=== PATIENT | male | born 1945 | race Two or more races ===

== ENCOUNTER 2021-12-02 11:59 | Inpatient (IN) | payer OTHER, SELFPAY ==
[2021-12-02] VITALS (11 sets, daily range): BP systolic 132–194; BP diastolic 66–119; PULSE 64–88; RESP 15–19; TEMP 36.6–37.1; O2SAT 92–98; BMI 27.8
--- NOTE | ~2021-12-02 | CT_ITS ---
EXAMINATION: CT CHEST, ABDOMEN AND PELVIS WITH CONTRAST CLINICAL INFORMATION: Reason for Exam evaluate cavity seen on CXR COMPARISON: lumbar spine 12/02/2021 Chest radiograph 12/02/2021 TECHNIQUE: Multidetector volumetric imaging was performed from the thoracic inlet through the pubic symphysis following administration of 85 mL of Omnipaque 300. The scan was performed with the patient on the right side. Sagittal and coronal reformatted images were obtained on the technologist's workstation. This CT examination was performed using dose optimization techniques as appropriate, variously including the following: *Automated exposure control *Adjustment of mA and/or kV according to patient size (this includes techniques or standardized protocols for targeted exams where dose is matched to indication/reason for exam; i.e. extremities or head) *Use of iterative reconstruction technique DLP: 600 mGy-cm FINDINGS: CHEST: Lung: Dependent atelectasis is present in the right lung. A cavitary pleural-based mass is present measuring 2.9 x 2.4 x 3.3 cm (5:33 and 10:64) in the right lower lobe. No other lung masses or cavitary lesions are seen. Mediastinum: The mediastinum is unremarkable. Heart size is normal.. The central vascular structures are unremarkable. No hilar or mediastinal lymphadenopathy. Pericardium/Pleura: No significant effusion. No pleural mass or thickening. Chest Wall/Axilla: Unremarkable ABDOMEN/PELVIS: Peritoneal Space: No significant free air or free fluid identified. Liver, Gallbladder, Biliary Tree: The liver is normal in size, shape, and attenuation. At least 4 scattered water density masses are present in the liver consistent with cysts. No worrisome solid focal hepatic lesion or biliary ductal dilatation is present. The gallbladder is unremarkable with no evidence of radiopaque gallstones, gallbladder wall thickening, or obvious pericholecystic inflammatory changes. Pancreas: Unremarkable Spleen: Unremarkable Adrenal Glands: Unremarkable Kidneys and Ureters: The kidneys are normal in size, shape, and attenuation. No hydronephrosis, hydroureter, or calculi seen. No perinephric stranding. Bladder: Unremarkable Gastrointestinal Tract: Diverticular changes are present in the colon without diverticulitis. The small and large bowel are otherwise unremarkable. The appendix is none seen but there is no evidence of appendicitis.. Abdominal Wall: No significant hernia is appreciated. Lymph Nodes: No retroperitoneal lymphadenopathy. Vascular: Calcific atherosclerotic changes present in the aorta and iliac vessels without aneurysm.. The IVC appears unremarkable. PELVIC VISCERA: There is moderate BPH. Seminal vesicles appear normal OSSEUS STRUCTURES: Again seen is a large destructive lesion involving the sacrum spreading through the SI joint into the right iliac bone as well as into the inferior aspect of the L5 vertebral body.. This was well described on a CT lumbar spine earlier today. CT/CT abdomen pelvis w con IMPRESSION: 1. 3.3 cm cavitary pleural-based right lower lobe cavitary mass. Differential diagnosis would include abscess versus necrotic tumor. 2. Large destructive mass involving the sacrum and right iliac bone and L5 as described in the prior lumbar spine CT report. 3. Other incidental findings described above including colonic diverticulosis and BPH. Fleischner guidelines were followed.
--- NOTE | ~2021-12-02 | XR_ITS ---
EXAMINATION: XR CHEST CLINICAL INFORMATION: Shortness of breath COMPARISON: None TECHNIQUE: PA decubitus view of the chest was obtained. FINDINGS: There is elevation of the right hemidiaphragm. There is hazy density overlying the right lung which may be related to overlying soft tissues with no definite confluent pneumonitis identified. No pleural effusion is seen. Heart normal size. No evidence of pulmonary edema. No pneumothorax. XR/XR chest 1V IMPRESSION: Hazy density overlying the right hemithorax with some elevation of the right hemidiaphragm. This may be related to overlying soft tissue artifact or atelectasis.
--- NOTE | ~2021-12-02 | CT_ITS ---
EXAMINATION: CT OF THE thoracic and lumbar SPINE CLINICAL INFORMATION: Back pain COMPARISON: None. TECHNIQUE: Thin helical images with sagittal and coronal reformats. This CT examination was performed using dose optimization techniques as appropriate, variously including the following: *Automated exposure control *Adjustment of mA and/or kV according to patient size (this includes techniques or standardized protocols for targeted exams where dose is matched to indication/reason for exam; i.e. extremities or head) *Use of iterative reconstruction technique DOSE: DLP 938 and 656 mGy-cm FINDINGS: There is elevation of the right hemidiaphragm. There are significant changes of centrilobular and paraseptal emphysema bilaterally. There is a cavitated pleural-based lung lesion present posteriorly in what appears to be right lower lobe. CT of chest would be of help in further evaluation if clinically indicated. There is dilatation of the descending thoracic aorta just distal to the takeoff of the left subclavian artery where it measures 4.1 cm in diameter. There is a small hiatal hernia. There appears be some perinephric stranding about the left kidney with question mild fullness of the upper collecting system and extrarenal pelvis. No ureteral calculus is seen down through the proximal two thirds of the ureter with the distal ureter not being included on imaging. Thoracic spine: There is mild scoliosis convex right. There is severe degenerative disc see seen with disc space narrowing and marginal sclerosis C6-T1. No suspicious destructive bony lesions are identified. There is mild marginal spurring within the thoracic spine with a few Schmorl's node seen at multiple levels. The disc spaces of the thoracic spine are maintained. Lumbar spine: There is significant degenerative disc disease seen at the L4-L5 and L5-S1 levels with loss of disc space and marginal sclerosis and subchondral cyst formation. There is a destructive mass seen involving the sacrum and the medial aspect of the right ilium. The mass measures approximately 6.[address]/CT thoracic spine wo con IMPRESSION: Large destructive lesion involving the sacrum and medial aspect of the right ilium measuring approximately 6.5 x 10.4 cm in size. Severe changes of centrilobular and paraseptal emphysema within the lungs with cavitated pleural-based right lung lesion. 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 No significant thoracic spine lesion identified. Degenerative disc disease lumbar spine L4-S1 without destructive bony lesion. CT of the chest as well as full CT of the pelvis would help in evaluation of above findings.
--- NOTE | ~2021-12-02 | CT_ITS ---
EXAMINATION: CT HEAD WITHOUT CONTRAST CLINICAL INFORMATION: AMS COMPARISON: None TECHNIQUE: Contiguous axial imaging was performed from the skull base to vertex without intravenous administration of contrast. This CT examination was performed using dose optimization techniques as appropriate, variously including the following: *Automated exposure control *Adjustment of mA and/or kV according to patient size (this includes techniques or standardized protocols for targeted exams where dose is matched to indication/reason for exam; i.e. extremities or head) *Use of iterative reconstruction technique DLP: 881 mGy-cm FINDINGS: There is no evidence of acute intracranial hemorrhage or territorial infarction. No abnormal mass effect or midline shift is seen. Ricardo to white matter differentiation is well preserved. No extra-axial fluid collections are identified. The ventricles are normal in size. There is large amount of periventricular white matter low density seen consistent with microangiopathy. There is a lacunar infarct seen involving the anterior aspect of the left extreme capsule. There appears to be a lacunar infarct involving the anterior limb of the internal capsule on the right. There is a right thalamic lacunar infarct. The osseous structures and soft tissues are normal. The mastoid air cells and visualized portions of the paranasal sinuses are well aerated. CT/CT head/brain wo con IMPRESSION: No acute intracranial pathology. Findings consistent with microangiopathy as described.
--- NOTE | 2021-12-02 12:46 | ED_ITS ---
HPI - General Adult General Chief complaint: Back Pain/Injury Stated complaint: BACK PAIN W/LACK OF SLEEP Time Seen by Provider: 12/02/21 12:11 Source: patient Mode of arrival: EMS Limitations: altered mental status History of Present Illness HPI narrative: 76-year-old male presents from home via EMS for back pain. Patient tells me this pain started 6 years ago, and the pain is in his entire back. Patient states he cannot sleep and has not been able to sleep for 6 years. States he can not close his eyes, he closes his eyes for 2 seconds and then then his eyes open again and he cannot sleep. Patient states he has leukemia, states that he has an appointment with Oncology at the [facility] [place]. States his primary care provider has been managing his leukemia until now, primary care provider is [place]. [place]. Patient denies any recent falls. States he is wheelchair-bound. States he has no visiting nurses or services at home. States he has been short of breath for 6 or 10 years. Denies chest pain, abdominal pain, nausea, vomiting, diarrhea, urinary incontinence, headache, blurry vision, stiff neck, focal weakness, cough, fever Patient is hypertensive, he is not sure if he took his blood pressure medicine today. Patient is alert and oriented to person and place, but not time, he thinks it is May He can answer my questions, but his answers are vague and in his positive review of systems, he continues to say he has had symptoms for 6-10 years Onset (ago): year(s) (6) Location: back Radiation: non-radiation Quality: aching Pain Consistency: constant Associated symptoms: denies other symptoms Treatments prior to arrival: none Related Data Home Medications Medication Instructions Recorded Confirmed acetaminophen 325 mg tablet 650 mg PO DAILY PRN 12/02/21 12/02/21 atenolol 25 mg tablet 25 mg PO DAILY 12/02/21 12/02/21 atorvastatin 80 mg tablet 80 mg PO BEDTIME 12/02/21 12/02/21 Allergies Allergy/AdvReac Type Severity Reaction Status Date / Time No Known Allergies Allergy Verified 12/02/21 12:08 Review of Systems Constitutional: Constitutional: Denies body ache(s), Denies chills, Denies fatigue, Denies fever(s) and Denies headache(s) Eyes: Eyes: Denies blurry vision and Denies change in vision ENT: Denies dizziness, Denies otalgia, Denies headache(s), Denies nasal congestion, Denies neck pain and Denies sore throat Cardiovascular: Cardiovascular: Denies chest pain, Denies syncope, Denies pedal edema, Denies leg edema, Denies lightheadedness, Denies palpitations, Reports dyspnea and Denies dyspnea on exertion Respiratory: Respiratory: Denies chest congestion, Denies cough, Reports dy spnea and Denies dyspnea on exertion Gastrointestinal: Gastrointestinal: Denies abdominal pain, Denies melena, Denies hematochezia, Denies coffee ground emesis, Denies fecal incontinence, Denies diarrhea, Denies nausea and Denies vomiting Genitourinary: Genitourinary: Denies dysuria and Denies urinary incontinence Musculoskeletal: Musculoskeletal: Reports back pain, Reports muscle cramps, Denies muscle weakness, Denies neck pain, Denies numbness and Denies tingling Neurologic: Denies Abnormal speech present, Denies burning sensations, Denies dizziness, Denies syncope, Denies headache(s), Denies numbness, Denies Sensory deficit (Neuro), Denies tingling and Denies paresthesias Endocrine: Endocrine: Denies fatigue and Denies palpitations PMFSH Past Medical History Medical History Gammopathy, monoclonal Hypertension Stroke Social History Social History Advance Directives: No Advance Directives Information Provided: Yes Physical Exam ED Vital Signs: Vital Signs - 24 hr 12/02/21 12:08 12/02/21 12:45 12/02/21 12:48 Temperature 98.8 F Pulse Rate 88 88 84 Respiratory Rate 18 15 Blood Pressure 194/119 H 175/108 H 181/94 H Pulse Oximetry 95 98 12/02/21 13:37 12/02/21 13:39 12/02/21 14:35 Temperature Pulse Rate 64 70 Respiratory Rate 16 18 Blood Pressure 172/105 H 171/95 H 188/103 H Pulse Oximetry 95 96 12/02/21 15:13 12/02/21 16:11 Temperature Pulse Rate 67 79 Respiratory Rate 16 18 Blood Pressure 157/82 H 180/95 H Pulse Oximetry 96 95 BMI result Body Mass Index 27.8 Const General: cooperative, no acute distress, alert and awake Nutritional Appearance: obese Orientation/consciousness: oriented to person and oriented to place HENMT Head: Yes normal to inspection, Yes normocephalic and Yes atraumatic Ears: hearing grossly normal bilaterally, external ears normal, TM's normal bilaterally and EAC's normal General nose exam: Normal external nose present Face and sinus: Yes normal facial exam and Yes sinuses nontender Mouth: Normal oral and palatal mucosa present Throat: Yes posterior oropharynx normal Eyes Conjunctivae: conjunctivae normal Pupils: Equal, round and reactive pupils present EOM: EOMs intact bilaterally Neck Neck: Yes full ROM, Yes no lymphadenopathy and Yes supple Resp Effort & Inspection: normal respiratory effort and able to speak in complete sentences Auscultation: no crackles, no rales, no rhonchi and wheezes throughout Cardio Rate: regular rate Rhythm: regular rhythm Heart sounds: S1 normal heart sound present and S2 normal heart sound present GI Inspection: Yes Abdominal panniculus present and Yes obesity Palpation (GI): Soft to palpation, nontender, no guarding and not rigid Percussion: Yes normal to percussion Auscultation: normal bowel sounds Back/Spine/Pelvis Cervical Spine: normal cervical lordosis, cervical ROM normal, No cervical muscular tenderness, No Cervical spine tenderness, No step off deformity and No cervical ROM abnormal Thoracic/Lumbar Spine: thoraco-lumbar spasm on the right, thoracic spinal tenderness and lumbar spinal tenderness Skin Other: ?feces left foot Neuro General: oriented to person, oriented to place, tone normal, moves all extremities and Unable to assess gait Cranial nerves: Yes CN's II-XII intact bilaterally, Yes Equal, round and reactive pupils present, Yes Normal accommodation reflex present, Yes Bilaterally intact EOM present, Yes Nystagmus not present, Yes Normal facial strength present, Yes Midline tongue present, Yes Ability to bilaterally rotate head present and Yes Ability to bilaterally elevate shoulders present Cognition (Neuro): abnormal cognition (doesn't know his meds, vague) Speech: No Abnormal speech present Gait exam (Neuro): Unable to assess gait Motor exam (neuro): 5/5 motor strength present throughout and Pronator motor function not present Sensory Exam: No Sensory deficit (Neuro) Coordination: [id number] test normal Pupils: Normal pupillary reactivity/response: bilateral Extrem General: Yes normal to inspection and Yes full ROM Psych Appearance: grossly normal Affect: normal affect Attitude: cooperative Thought process: Normal thought process present Course Course Course Narrative: 76-year-old male with reported history of leukemia [facility], and for whom we have no records, presents for back pain and insomnia for the last 6 years. Patient is alert and oriented to person and place, he got the month wrong, he says it is October, he knows that the president is Jessica. No focal neuro deficits, the patient is disheveled, is resting on his side, and will not lie on his back due to pain. Patient has possible feces on left foot. Reevaluation(s) Reevaluation #1: Trying to obtain patient problem list and medication list from [place]. Patient is vague in his answers, when the professor of radiology asked why he is here, he says ?I do not know, pain, maybe I had a stroke? survey technician tells me patient will not lie still for the CT I was awaiting medication history to decide what to treat patient with, but will now give ketorolac and Flexeril so we can get imaging Reevaluation #2: Patient states his pain is little better with medications, will try to get CT and urine So far patient has normal labs, alcohol level is not detectable, EKG shows no acute ischemia Called [place] for more information, and a [facility] worker return my call. They stated patient is on atenolol 25 mg daily, and atorvastatin 80 mg daily. States that patient's problem list includes hypertension, hyperlipidemia, chronic kidney disease stage 3, chronic hematuria, history of stroke in 2019, with right h emiparesis, monoclonal gammopathy. 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 No clear leukemia diagnosis. No history of back pain and patient's chart. PA worker tells me patient does not have any nursing help at home forest technology professor was able to reconstruct thoracic and lumbar spine CT to include kidney, given new information about patient's kidney pathology Patient states his pain is not better with ketorolac and Flexeril, will give morphine. Troponin is elevated at 50.4, most likely due to patient's chronic kidney disease, will repeat troponin in 3 hours. Urine shows hematuria, which is chronic, urine drug screen is negative, alcohol level is nondetectable On re-examine, patient is on his side, refuses to lay on his back. Can move his legs and push against my hands, hard to completely assess leg strength in this position Reevaluation #3: CT head/brainFINDINGS: There is no evidence of acute intracranial hemorrhage or territorial infarction. No abnormal mass effect or midline shift is seen. Ricardo to white matter differentiation is well preserved. No extra-axial fluid collections are identified. The ventricles are normal in size. There is large amount of periventricular white matter low density seen consistent with microangiopathy. There is a lacunar infarct seen involving the anterior aspect of the left extreme capsule. There appears to be a lacunar infarct involving the anterior limb of the internal capsule on the right. There is a right thalamic lacunar infarct. The osseous structures and soft tissues are normal. The mastoid air cells and visualized portions of the paranasal sinuses are well aerated. CT/CT head/brain wo con IMPRESSION: No acute intracranial pathology. Findings consistent with microangiopathy as described. CXR FINDINGS: There is elevation of the right hemidiaphragm. There is hazy density overlying the right lung which may be related to overlying soft tissues with no definite confluent pneumonitis identified. No pleural effusion is seen. Heart normal size. No evidence of pulmonary edema. No pneumothorax. XR/XR chest 1V IMPRESSION: Hazy density overlying the right hemithorax with some elevation of the right hemidiaphragm. This may be related to overlying soft tissue artifact or atelectasis. CT/CT lumbar spine wo con IMPRESSION: Large destructive lesion involving the sacrum and medial aspect of the right ilium measuring approximately 6.5 x 10.4 cm in size.? Severe changes of centrilobular and paraseptal emphysema within the lungs with cavitated pleural-based right lung lesion. 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 No significant thoracic spine lesion identified. Degenerative disc disease lumbar spine L4-S1 without destructive bony lesion CT thoracic spine FINDINGS: There is elevation of the right hemidiaphragm. There are significant changes of centrilobular and paraseptal emphysema bilaterally. There is a cavitated pleural-based lung lesion present posteriorly in what appears to be right lower lobe. CT of chest would be of help in further evaluation if clinically indicated. There is dilatation of the descending thoracic aorta just distal to the takeoff of the left subclavian artery where it measures 4.1 cm in diameter. There is a small hiatal hernia. There appears be some perinephric stranding about the left kidney with question mild fullness of the upper collecting system and extrarenal pelvis. No ureteral calculus is seen down through the proximal two thirds of the ureter with the distal ureter not being included on imaging. Thoracic spine: There is mild scoliosis convex right. There is severe degenerative disc see seen with disc space narrowing and marginal sclerosis C6-T1. No suspicious destructive bony lesions are identified. There is mild marginal spurring within the thoracic spine with a few Schmorl's node seen at multiple levels. The disc spaces of the thoracic spine are maintained. Lumbar spine: There is significant degenerative disc disease seen at the L4-L5 and L5-S1 levels with loss of disc space and marginal sclerosis and subchondral cyst formation. There is a destructive mass seen involving the sacrum and the medial aspect of the right ilium. The mass measures approximately 6.[address]/CT thoracic spine wo con IMPRESSION: Large destructive lesion involving the sacrum and medial aspect of the right ilium measuring approximately 6.5 x 10.4 cm in size. ? Severe changes of centrilobular and paraseptal emphysema within the lungs with cavitated pleural-based right lung lesion. 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 ? No significant thoracic spine lesion identified. ? Degenerative disc disease lumbar spine L4-S1 without destructive bony lesion. CT of the chest as well as full CT of the pelvis would help in evaluation of above findings Discussed with hospitalist to admit patient for intractable pain and sacral mass. Will order CT chest with contrast and CT pelvis with contrast to evaluate lung cavity and sacral mass more fully Repeat troponin was 51.9, no delta change ? Additional Reevaluation(s): Patient's HCP called, her name is Desiree Palscencia. Her phone number is [phone]. She is the patient's niece. She states the patient is with PTSD, and that he is very stubborn and will not admit to the illness that he has. States he sleeps during the day and cannot sleep at night. States he was supposed to have a lung biopsy but he canceled appointments and never got the lung biopsy. States that she recently took him to [facility] for bleeding from his mouth, he was filling up coffee cups with blood, he was told he needed a biopsy of his lung, and refused. Patient continues to smoke cigarettes. She states he lives alone and is very impatient. She states he is a full code. She states she and her mother are his only relatives, and that she wants to be contacted to be included in his care. CT/CT chest w con IMPRESSION: 1.? 3.3 cm cavitary pleural-based right lower lobe cavitary mass. Differential diagnosis would include abscess versus necrotic tumor. 2.? Large destructive mass involving the sacrum and right iliac bone and L5 as described in the prior lumbar spine CT report. 3.? Other incidental findings described above including colonic diverticulosis and BPH. Medical Decision Making Lab Data Result diagrams: 12/02/21 12:53 12/02/21 12:53 Labs: Lab Results 12/02/21 12/02/21 12/02/21 Range/Units 12:42 12:53 12:53 WBC 10.5 (4.8-10.8) X10*3/uL RBC 5.02 (4.60-5.80) X10*6/uL Hgb 14.4 (14.0-18.0) g/dl Hct 44.8 (42.0-52.0) % MCV 89.2 (80.0-98.0) fL MCH 28.7 (27.0-33.0) pg MCHC 32.1 (31.0-36.0) g/dl RDW 14.0 (11.0-16.0) % Plt Count 218 (160-400) X10*3/uL MPV 12.4 (9.4-12.4) fL Immature Gran % (Auto) 0.8 H (0.0-0.4) % Neut % (Auto) 80.2 H (45-73) % Lymph % (Auto) 7.9 L (20-40) % [place] % (Auto) 8.1 (2-11) % Eos % (Auto) 2.4 (0-4) % Baso % (Auto) 0.6 (0-2) % Lymph # (Auto) 0.8 L (1.2-4.9) X10*3/uL [place] # (Auto) 0.9 (0.1-1.2) X10*3/uL Eos # (Auto) 0.3 (0.0-0.4) X10*3/uL Baso # (Auto) 0.1 (0.0-0.2) X10*3/uL Abs Immat Gran (auto) 0.08 H (0.00-0.03) X10*3/uL Absolute Neuts (auto) 8.4 H (2.0-8.3) x10*3/uL Absolute Nucleated RBC 0.000 (0.0-0.012) X10*3/uL Nucleated RBC % (auto) 0.0 (0.0-0.2) /100WBC Sodium 143 (135-145) mmol/L Potassium 3.3 (3.3-5.1) mmol/L Chloride 105 (96-108) mmol/L Carbon Dioxide 28 (22-29) mmol/L Anion Gap 13 (12-20) BUN 10 (9-16) mg/dL Creatinine 1.03 (0.5-1.4) mg/dL Estim Creat Clear Calc 63.0 Estimated GFR > 60 Random Glucose 115 (60-115) mg/dL Lactic Acid (0.5-2.0) mmol/L Calcium 9.6 (8.4-10.2) mg/dL Total Bilirubin 0.8 (0.0-1.0) mg/dL AST 23 (5-37) U/L ALT 28 (0-40) U/L Alkaline Phosphatase 109 (39-117) U/L Troponin I High Sens 50.4 H (<3.5-35.0) ng/L Total Protein 6.1 L (6.5-8.0) g/dL Albumin 3.6 (3.5-5.0) g/dL Urine Color Urine Appearance Urine pH (5.0-8.0) Ur Specific [place] (1.005-1.025) Urine Protein (NEG-TRACE) MG/DL Urine Glucose (UA) (NEG) MG/DL Urine Ketones (NEG) MG/DL Urine Blood (NEG) Urine Nitrite (NEG) Ur Leukocyte Esterase (NEG) Urine RBC (0) /HPF Urine WBC (0-4) /HPF Ur Squamous Epith Cells /LPF Urine Bacteria /LPF Urine Opiates Screen (Not Detect) Urine Fentanyl Screen (Not Detect) Ur Barbiturates Screen (Not Detect) Ur Phencyclidine Scrn (Not Detect) Ur Amphetamines Screen (Not Detect) U Benzodiazepines Scrn (Not Detect) Urine Cocaine Screen (Not Detect) U Marijuana (THC) Screen (Not Detect) Ethyl Alcohol mg/dL COVID-19 (SHENA) (Negative) COVID-19 Clin Com 12/02/21 12/02/21 12/02/21 Range/Units 12:53 12:53 13:51 WBC (4.8-10.8) X10*3/uL RBC (4.60-5.80) X10*6/uL Hgb (14.0-18.0) g/dl Hct (42.0-52.0) % MCV (80.0-98.0) fL MCH (27.0-33.0) pg MCHC (31.0-36.0) g/dl RDW (11.0-16.0) % Plt Count (160-400) X10*3/uL MPV (9.4-12.4) fL Immature Gran % (Auto) (0.0-0.4) % Neut % (Auto) (45-73) % Lymph % (Auto) (20-40) % [place] % (Auto) (2-11) % Eos % (Auto) (0-4) % Baso % (Auto) (0-2) % Lymph # (Auto) (1.2-4.9) X10*3/uL [place] # (Auto) (0.1-1.2) X10*3/uL Eos # (Auto) (0.0-0.4) X10*3/uL Baso # (Auto) (0.0-0.2) X10*3/uL Abs Immat Gran (auto) (0.00-0.03) X10*3/uL Absolute Neuts (auto) (2.0-8.3) x10*3/uL Absolute Nucleated RBC (0.0-0.012) X10*3/uL Nucleated RBC % (auto) (0.0-0.2) /100WBC Sodium (135-145) mmol/L Potassium (3.3-5.1) mmol/L Chloride (96-108) mmol/L Carbon Dioxide (22-29) mmol/L Anion Gap (12-20) BUN (9-16) mg/dL Creatinine (0.5-1.4) mg/dL Estim Creat Clear Calc Estimated GFR Random Glucose (60-115) mg/dL Lactic Acid (0.5-2.0) mmol/L Calcium (8.4-10.2) mg/dL Total Bilirubin (0.0-1.0) mg/dL AST (5-37) U/L ALT (0-40) U/L Alkaline Phosphatase (39-117) U/L Troponin I High Sens (<3.5-35.0) ng/L Total Protein (6.5-8.0) g/dL Albumin (3.5-5.0) g/dL Urine Color YELLOW Urine Appearance HAZY Urine pH 7.0 (5.0-8.0) Ur Specific [place] 1.010 (1.005-1.025) Urine Protein 2+ H (NEG-TRACE) MG/DL Urine Glucose (UA) NEG (NEG) MG/DL Urine Ketones NEG (NEG) MG/DL Urine Blood TRACE (NEG) Urine Nitrite NEG (NEG) Ur Leukocyte Esterase NEG (NEG) Urine RBC 5-9 H (0) /HPF Urine WBC 1-4 (0-4) /HPF Ur Squamous Epith Cells TRACE /LPF Urine Bacteria NONE /LPF Urine Opiates Screen (Not Detect) Urine Fentanyl Screen (Not Detect) Ur Barbiturates Screen (Not Detect) Ur Phencyclidine Scrn (Not Detect) Ur Amphetamines Screen (Not Detect) U Benzodiazepines Scrn (Not Detect) Urine Cocaine Screen (Not Detect) U Marijuana (THC) Screen (Not Detect) Ethyl Alcohol < 10 mg/dL COVID-19 (SHENA) Negative (Negative) COVID-19 Clin Com See Note 12/02/21 12/02/21 12/02/21 Range/Units 13:51 15:39 16:09 WBC (4.8-10.8) X10*3/uL RBC (4.60-5.80) X10*6/uL Hgb (14.0-18.0) g/dl Hct (42.0-52.0) % MCV (80.0-98.0) fL MCH (27.0-33.0) pg MCHC (31.0-36.0) g/dl RDW (11.0-16.0) % Plt Count (160-400) X10*3/uL MPV (9.4-12.4) fL Immature Gran % (Auto) (0.0-0.4) % Neut % (Auto) (45-73) % Lymph % (Auto) (20-40) % [place] % (Auto) (2-11) % Eos % (Auto) (0-4) % Baso % (Auto) (0-2) % Lymph # (Auto) (1.2-4.9) X10*3/uL [place] # (Auto) (0.1-1.2) X10*3/uL Eos # (Auto) (0.0-0.4) X10*3/uL Baso # (Auto) (0.0-0.2) X10*3/uL Abs Immat Gran (auto) (0.00-0.03) X10*3/uL Absolute Neuts (auto) (2.0-8.3) x10*3/uL Absolute Nucleated RBC (0.0-0.012) X10*3/uL Nucleated RBC % (auto) (0.0-0.2) /100WBC Sodium (135-145) mmol/L Potassium (3.3-5.1) mmol/L Chloride (96-108) mmol/L Carbon Dioxide (22-29) mmol/L Anion Gap (12-20) BUN (9-16) mg/dL Creatinine (0.5-1.4) mg/dL Estim Creat Clear Calc Estimated GFR Random Glucose (60-115) mg/dL Lactic Acid 0.9 (0.5-2.0) mmol/L Calcium (8.4-10.2) mg/dL Total Bilirubin (0.0-1.0) mg/dL AST (5-37) U/L ALT (0-40) U/L Alkaline Phosphatase (39-117) U/L Troponin I High Sens 51.9 H (<3.5-35.0) ng/L Total Protein (6.5-8.0) g/dL Albumin (3.5-5.0) g/dL Urine Color Urine Appearance Urine pH (5.0-8.0) Ur Specific [place] (1.005-1.025) Urine Protein (NEG-TRACE) MG/DL Urine Glucose (UA) (NEG) MG/DL Urine Ketones (NEG) MG/DL Urine Blood (NEG) Urine Nitrite (NEG) Ur Leukocyte Esterase (NEG) Urine RBC (0) /HPF Urine WBC (0-4) /HPF Ur Squamous Epith Cells /LPF Urine Bacteria /LPF Urine Opiates Screen Not Detected (Not Detect) Urine Fentanyl Screen Not Detected (Not Detect) Ur Barbiturates Screen Not Detected (Not Detect) Ur Phencyclidine Scrn Not Detected (Not Detect) Ur Amphetamines Screen Not Detected (Not Detect) U Benzodiazepines Scrn Not Detected (Not Detect) Urine Cocaine Screen Not Detected (Not Detect) U Marijuana (THC) Screen Not Detected (Not Detect) Ethyl Alcohol mg/dL COVID-19 (SHENA) (Negative) COVID-19 Clin Com ECG Data Interpretation: Sinus at a rate of 75, ND interval 130, QRS 100, QTC 388, left axis deviation, no ST depression or elevation, no T-wave abnormalities Discharge Plan Discharge Clinical Impression: Mass of sacrum, Back pain, Mass of lung Patient Disposition: Admitted As Inpatient
[2021-12-02] MEDS: 0.9 % Sodium Chloride 1,000 ML 999 ML IV (12:55)
[2021-12-02 12:59] LABS: MANUAL DIFF FLAG NO
[2021-12-02] MEDS: Metoprolol Tartrate 25 MG TABLET PO (12:59)
--- NOTE | 2021-12-02 13:01 | ECG_ITS ---
Test Reason : HYPERTENSION Blood Pressure : / mmHG Vent. Rate : 075 BPM Atrial Rate : 075 BPM P-R Int : 130 ms QRS Dur : 100 ms QT Int : 348 ms P-R-T Axes : 050 -41 015 degrees QTc Int : 388 ms Normal sinus rhythm Left axis deviation Moderate voltage criteria for LVH, may be normal variant ( R in aVL , Alexandr product ) Abnormal ECG No previous ECGs available Referred By: Vida Golden Electronically Signed By:RUTH OSBORN MD
[2021-12-02 13:15] LABS: Ethanol < 10 mg/dL
[2021-12-02 13:18] LABS: Basophils Absolute Auto 0.1 X10*3/uL (0.0-0.2); Basophils Percent Auto 0.6 % (0-2); Eosinophils Absolute Auto 0.3 X10*3/uL (0.0-0.4); Eosinophils Percent Auto 2.4 % (0-4); Hematocrit 44.8 % (42.0-52.0); Hemoglobin 14.4 g/dl (14.0-18.0); Imm Gran Abs Auto 0.08 X10*3/uL (0.00-0.03); Imm Gran Pct Auto 0.8 % (0.0-0.4); Lymphocytes Absolute Auto 0.8 X10*3/uL (1.2-4.9); Lymphocytes Percent Auto 7.9 % (20-40); Mean Corpuscular HGB Conc 32.1 g/dl (31.0-36.0); Mean Corpuscular Hemoglobin 28.7 pg (27.0-33.0); Mean Corpuscular Volume 89.2 fL (80.0-98.0); Mean Platelet Volume 12.4 fL (9.4-12.4); Monocytes Absolute Auto 0.9 X10*3/uL (0.1-1.2); Monocytes Percent Auto 8.1 % (2-11); Neutrophils Absolute Auto 8.4 x10*3/uL (2.0-8.3); Neutrophils Percent Auto 80.2 % (45-73); Platelet Count 218 X10*3/uL (160-400); Red Blood Count 5.02 X10*6/uL (4.60-5.80); White Blood Count 10.5 X10*3/uL (4.8-10.8)
[2021-12-02 13:19] LABS: Alanine Aminotransferase 28 U/L (0-40); Albumin Level 3.6 g/dL (3.5-5.0); Alkaline Phosphatase 109 U/L (39-117); Anion Gap 13 (12-20); Aspartate Amino Transferase 23 U/L (5-37); Bilirubin Total 0.8 mg/dL (0.0-1.0); Blood Urea Nitrogen 10 mg/dL (9-16); Calcium 9.6 mg/dL (8.4-10.2); Carbon Dioxide 28 mmol/L (22-29); Chloride 105 mmol/L (96-108); Estimated Glomerular Filt Rate > 60; Glucose Random 115 mg/dL (60-115); Potassium 3.3 mmol/L (3.3-5.1); Sodium 143 mmol/L (135-145); Total Protein 6.1 g/dL (6.5-8.0)
[2021-12-02 13:20] LABS: COVID-19 Test Negative (Negative); IDNOW Serial# 16C4AD1C
[2021-12-02] MEDS: Ketorolac Tromethamine 15 MG/ML VIAL IVPUSH (13:37)
[2021-12-02] MEDS: Cyclobenzaprine HCl 5 MG TABLET PO (13:37)
[2021-12-02 13:45] LABS: Troponin-I High Sensitivity 50.4 ng/L (<3.5-35.0)
[2021-12-02 13:59] LABS: Appearance Urine HAZY; Color Urine YELLOW; Glucose Urine UA NEG (NEG); Leukocyte Esterase Urine NEG (NEG); Nitrite Urine NEG (NEG); UACC Culture Trigger NO; Urine Blood TRACE (NEG); Urine Ketones NEG (NEG); Urine Protein 2+ MG/DL (NEG-TRACE)
[2021-12-02 14:04] LABS: Squamous Epithelial Cell Urine TRACE /LPF
--- NOTE | 2021-12-02 14:08 | PC.NURSE ---
MESSAGE LEFT @ [phone] FOR MEED LIST AND PROBLEM LIST @ [facility] REQUEST. NO ANSWER BY LIVE STAFF,VOICEMAIL ONLY
[2021-12-02 14:19] LABS: Amphetamine Screen Urine Not Detected (Not Detect); Barbiturates, Urine Not Detected (Not Detect); Benzodiazepines Screen Urine Not Detected (Not Detect); Cannabinoid Screen Urine Not Detected (Not Detect); Cocaine Screen Urine Not Detected (Not Detect); Fentanyl, urine Not Detected (Not Detect); Opiate Screen Urine Not Detected (Not Detect); Phencyclidine Screen Urine Not Detected (Not Detect)
[2021-12-02] MEDS: ondansetron HCL 4 MG/2 ML VIAL IVPUSH (14:39)
[2021-12-02] MEDS: Morphine Sulfate 4 MG/ML CARTRIDGE IVPUSH (14:39)
--- NOTE | 2021-12-02 15:10 | PC.NURSE ---
[facility] phone # [phone].
[2021-12-02 16:17] LABS: Troponin-I High Sensitivity 51.9 ng/L (<3.5-35.0)
[2021-12-02 16:35] LABS: Lactic Acid 0.9 mmol/L (0.5-2.0)
--- NOTE | 2021-12-02 17:00 | PHA.MEDREC ---
Pharmacy Consult ? Medication Reconciliation Pharmacy has completed the medication reconciliation.
--- NOTE | 2021-12-02 17:45 | P.HPHOSP_ITS ---
History of Present Illness Date of Service: 12/02/21 Chief Complaint: Intractable pain A 76 years old male with PMH of HTN, HLD, CKD stage II hematuria, history of stroke, monoclonal gammopathy who to the hospital for worsening back pain. The patient follows with [facility] and reports that for the last 6 years he has been having back pain but that has worsened significantly over the last few weeks and became unbearable today. He reports he cannot sleep because of the pain. He is not the best historian as he reports being worked up for cancer that did not find exactly but at the same time he has an appointment with Oncology at [facility] for some kind of biopsy that we are still waiting to confirm. The patient states that he lives alone, he is wheelchair-bound and has no services at home. Next Lyme denies any fever, chills, chest pain, abdominal pain, nausea, vomiting, change in bowel habit or urinary symptoms. In the emergency a CT scan of the lumbar spine was consistent with sacral mass. Thoracic CT showed an evidence of lung cavitary lesion on the right side. Patient will be admitted for further evaluation and treatment. Review of Systems Review of Systems: No fever, chills with reported increase pain his lower back and becoming more generalized No chest pain, palpitation No shortness of breath or coughing No abdominal pain, nausea or vomiting No urinary symptoms No any rash or wounds PMFSH Medical History Gammopathy, monoclonal Hypertension Stroke Social History Advance Directives: No Advance Directives Information Provided: Yes Meds Allergies Allergy/AdvReac Type Severity Reaction Status Date / Time No Known Allergies Allergy Verified 12/02/21 12:08 Active Medications: Current Medications Pharmacy Consult (Consult Rx Perform Med Rec) 1 each MISCELLANE ONCE PRN PRN Reason: Consult order Home Medications Medication Instructions Recorded Confirmed Last Taken Type acetaminophen 325 mg tablet 650 mg PO DAILY PRN 12/02/21 12/02/21 Unknown History atenolol 25 mg tablet 25 mg PO DAILY 12/02/21 12/02/21 Unknown History atorvastatin 80 mg tablet 80 mg PO BEDTIME 12/02/21 12/02/21 Unknown History Physical Exam Vital Signs and Narrative: Vital Signs: Last Vital Signs Temp 98.8 F 12/02/21 12:08 Pulse 79 12/02/21 16:11 Resp 18 12/02/21 16:11 BP 180/95 H 12/02/21 16:11 Pulse Ox 95 12/02/21 16:11 BMI result Body Mass Index 27.8 Const: Other: Constitutional : Alert, oriented, not in distress Neck : Normal inspection, Supple Cardiovascular : RRR, no JVP, no lower extremity edema Respiratory : fair bilateral air entry, no crackles, wheezes or rhonchi Gastrointestinal: soft, lax, Normal bowel sounds, Non tender Skin : Warm, Dry Neurological : Alert & oriented x3, right-sided weakness Results Labs CBC and Chem 7: 12/02/21 12:53 12/02/21 12:53 Labs: Laboratory Results - last 24 hr 12/02/21 12/02/21 12/02/21 12:42 12:53 12:53 MCV 89.2 MCH 28.7 MCHC 32.1 RDW 14.0 Plt Count 218 MPV 12.4 Immature Gran % (Auto) 0.8 H Neut % (Auto) 80.2 H Lymph % (Auto) 7.9 L [place] % (Auto) 8.1 Eos % (Auto) 2.4 Baso % (Auto) 0.6 Lymph # (Auto) 0.8 L [place] # (Auto) 0.9 Eos # (Auto) 0.3 Baso # (Auto) 0.1 Abs Immat Gran (auto) 0.08 H Absolute Neuts (auto) 8.4 H Absolute Nucleated RBC 0.000 Nucleated RBC % (auto) 0.0 Anion Gap 13 Estim Creat Clear Calc 63.0 Estimated GFR > 60 Random Glucose 115 Lactic Acid Calcium 9.6 Total Bilirubin 0.8 AST 23 ALT 28 Alkaline Phosphatase 109 Troponin I High Sens 50.4 H Total Protein 6.1 L Albumin 3.6 Urine Color Urine Appearance Urine pH Ur Specific [place] Urine Protein Urine Glucose (UA) Urine Ketones Urine Blood Urine Nitrite Ur Leukocyte Esterase Urine RBC Urine WBC Ur Squamous Epith Cells Urine Bacteria Urine Opiates Screen Urine Fentanyl Screen Ur Barbiturates Screen Ur Phencyclidine Scrn Ur Amphetamines Screen U Benzodiazepines Scrn Urine Cocaine Screen U Marijuana (THC) Screen Ethyl Alcohol COVID-19 ([facility]) COVID-19 Clin Com 12/02/21 12/02/21 12/02/21 12:53 12:53 13:51 MCV MCH MCHC RDW Plt Count MPV Immature Gran % (Auto) Neut % (Auto) Lymph % (Auto) [place] % (Auto) Eos % (Auto) Baso % (Auto) Lymph # (Auto) [place] # (Auto) Eos # (Auto) Baso # (Auto) Abs Immat Gran (auto) Absolute Neuts (auto) Absolute Nucleated RBC Nucleated RBC % (auto) Anion Gap Estim Creat Clear Calc Estimated GFR Random Glucose Lactic Acid Calcium Total Bilirubin AST ALT Alkaline Phosphatase Troponin I High Sens Total Protein Albumin Urine Color YELLOW Urine Appearance HAZY Urine pH 7.0 Ur Specific [place]am 1.010 Urine Protein 2+ H Urine Glucose (UA) NEG Urine Ketones NEG Urine Blood TRACE Urine Nitrite NEG Ur Leukocyte Esterase NEG Urine RBC 5-9 H Urine WBC 1-4 Ur Squamous Epith Cells TRACE Urine Bacteria NONE Urine Opiates Screen Urine Fentanyl Screen Ur Barbiturates Screen Ur Phencyclidine Scrn Ur Amphetamines Screen U Benzodiazepines Scrn Urine Cocaine Screen U Marijuana (THC) Screen Ethyl Alcohol < 10 COVID-19 ([facility]NA) Negative COVID-19 Clin Com See Note 12/02/21 12/02/21 12/02/21 13:51 15:39 16:09 MCV MCH MCHC RDW Plt Count MPV Immature Gran % (Auto) Neut % (Auto) Lymph % (Auto) [place] % (Auto) Eos % (Auto) Baso % (Auto) Lymph # (Auto) [place] # (Auto) Eos # (Auto) Baso # (Auto) Abs Immat Gran (auto) Absolute Neuts (auto) Absolute Nucleated RBC Nucleated RBC % (auto) Anion Gap Estim Creat Clear Calc Estimated GFR Random Glucose Lactic Acid 0.9 Calcium Total Bilirubin AST ALT Alkaline Phosphatase Troponin I High Sens 51.9 H Total Protein Albumin Urine Color Urine Appearance Urine pH Ur Specific [place] Urine Protein Urine Glucose (UA) Urine Ketones Urine Blood Urine Nitrite Ur Leukocyte Esterase Urine RBC Urine WBC Ur Squamous Epith Cells Urine Bacteria Urine Opiates Screen Not Detected Urine Fentanyl Screen Not Detected Ur Barbiturates Screen Not Detected Ur Phencyclidine Scrn Not Detected Ur Amphetamines Screen Not Detected U Benzodiazepines Scrn Not Detected Urine Cocaine Screen Not Detected U Marijuana (THC) Screen Not Detected Ethyl Alcohol COVID-19 ([facility]) COVID-19 Clin Com Imaging Radiologist's Impressions: Impressions Chest X-Ray 12/02/21 13:33 IMPRESSION: Hazy density overlying the right hemithorax with some elevation of the right hemidiaphragm. This may be related to overlying soft tissue artifact or atelectasis. Head CT 12/02/21 14:56 IMPRESSION: No acute intracranial pathology. Findings consistent with microangiopathy as described. Lumbar Spine CT 12/02/21 14:56 IMPRESSION: Large destructive lesion involving the sacrum and medial aspect of the right ilium measuring approximately 6.5 x 10.4 cm in size. Severe changes of centrilobular and paraseptal emphysema within the lungs with cavitated pleural-based right lung lesion. 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 No significant thoracic spine lesion identified. Degenerative disc disease lumbar spine L4-S1 without destructive bony lesion. CT of the chest as well as full CT of the pelvis would help in evaluation of above findings. Thoracic Spine CT 12/02/21 14:56 IMPRESSION: Large destructive lesion involving the sacrum and medial aspect of the right ilium measuring approximately 6.5 x 10.4 cm in size. Severe changes of centrilobular and paraseptal emphysema within the lungs with cavitated pleural-based right lung lesion. 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 No significant thoracic spine lesion identified. Degenerative disc disease lumbar spine L4-S1 without destructive bony lesion. CT of the chest as well as full CT of the pelvis would help in evaluation of above findings. Assessment and Plan (1) Mass of sacrum: Status: Acute (2) Cavitary lesion of lung: Status: Acute Plan A 76 years old male with PMH of HTN, HLD, CKD stage II hematuria, history of stroke, monoclonal gammopathy who to the hospital for worsening back pain. Intractable back pain Secondary to sacral mass [facility] as the patient is not the best historian and is not aware of any mass To do CT abdomen, pelvis and chest with contrast Use Tylenol and oxycodone for pain management Get Oncology evaluation Cavitary lesion of the lung Seen on CT scan Seems to be related to the pleural space Get more information with CT with contrast Oncology to follow Hypertension Continue atenolol HLD continue atorvastatin History of stroke Patient not on antiplatelet?? DVT PPX Heparin The patient will need 2 overnight hospital stay for evaluation he the of sacral the mass and the cavitary lesion pending possible biopsies trying to get his pain under control. Quality Stroke Does the patient have a stroke diagnosis?: No VTE Prior VTE?: No VTE Risk Level:: Medical - moderate - high VTE Device Contraindication: Treatment Not Indicated VTE Drug Contraindication: N/A - Med Ordered
[2021-12-02] MEDS: iohexoL 300 MG/ML 100 ML INFUS..BTL IV (17:46)
[2021-12-02] MEDS: atenoloL 25 MG TABLET PO (17:54)
[2021-12-02] MEDS: Heparin Sodium,Porcine 5,000 UNIT/ML VIAL 5000 UNIT SUBCUT (17:54)
[2021-12-02] MEDS: Acetaminophen 325 MG TABLET 650 MG PO ×2 (17:54→23:27)
--- NOTE | 2021-12-02 18:19 | PHA.MEDREC ---
Pharmacy Consult ? Medication Reconciliation Pharmacy has completed the medication reconciliation.
--- NOTE | 2021-12-02 18:40 | PC.NURSE ---
Call x2, told twice that RN will call back
[2021-12-02] MEDS: oxyCODONE HCl Immed Release 5 MG TABLET PO (20:45)
[2021-12-02] MEDS: Atorvastatin Calcium 80 MG TABLET PO (20:45)
[2021-12-02] MEDS: 0.9 % Sodium Chloride Flush 3 ML SYRINGE IVFLUSH (20:46)
[2021-12-03] VITALS (7 sets, daily range): BP systolic 98–174; BP diastolic 55–91; PULSE 68–87; RESP 17–18; TEMP 35.7–37.1; O2SAT 90–96
[2021-12-03] MEDS: oxyCODONE HCl Immed Release 5 MG TABLET PO ×4 (02:09→21:17)
[2021-12-03] MEDS: Heparin Sodium,Porcine 5,000 UNIT/ML VIAL 5000 UNIT SUBCUT ×2 (02:09→08:23)
--- NOTE | 2021-12-03 04:59 | PC.NURSE ---
Assumed care around 1999, pt came from the ED to rm [id number], alert and oriented, vague as not consistent to answers, still with back pain especially with movements like changing positions in bed, , pt insisted to use the walker and go the BR, pt noted to be very stiff with pain, advised to use a urinal. Desiree Plascencia pt's niece called( pt gave permission to speak to her) and updated.
[2021-12-03] MEDS: Acetaminophen 325 MG TABLET 650 MG PO (05:25)
[2021-12-03] MEDS: Morphine Sulfate 4 MG/ML CARTRIDGE IVPUSH (05:49)
[2021-12-03 07:22] LABS: Hematocrit 39.7 % (42.0-52.0); Hemoglobin 12.6 g/dl (14.0-18.0); Mean Corpuscular HGB Conc 31.7 g/dl (31.0-36.0); Mean Corpuscular Volume 91.5 fL (80.0-98.0); Mean Platelet Volume 13.4 fL (9.4-12.4); Platelet Count 192 X10*3/uL (160-400); Red Blood Count 4.34 X10*6/uL (4.60-5.80); Red Cell Distribution Width 14.1 % (11.0-16.0); White Blood Count 8.5 X10*3/uL (4.8-10.8)
[2021-12-03 07:49] LABS: Anion Gap 12 (12-20); Blood Urea Nitrogen 15 mg/dL (9-16); Carbon Dioxide 26 mmol/L (22-29); Chloride 107 mmol/L (96-108); Creatinine Clr Calc Pharmacy 61.8; Estimated Glomerular Filt Rate > 60; Glucose Random 134 mg/dL (60-115); Potassium 3.3 mmol/L (3.3-5.1); Sodium 142 mmol/L (135-145)
[2021-12-03 07:57] LABS: Calcium 8.8 mg/dL (8.4-10.2)
[2021-12-03] MEDS: 0.9 % Sodium Chloride Flush 3 ML SYRINGE IVFLUSH ×3 (08:22→21:19)
[2021-12-03] MEDS: atenoloL 25 MG TABLET PO (08:23)
--- NOTE | 2021-12-03 09:14 | P.CNHO_ITS ---
Subjective - Subjective Chief complaint: Consult for: Cavitary Lung Lesion, Sacral mass. Patient: new to practice Consult date: 12/03/21 Requesting Physician: Fifi. Primary Care Provider: Hossein Parra Medical Summary: DIAGNOSIS: 1. Cavitary Lung Lesion. 2. Sacral Mass. HPI - Consult Narrative Reason for consult: Lung Mass. Sacral lesion. Narrative: Kadeem Kuo is a pleasant 76 year old gentleman, who presented with back pain. The pain has been present for almost 6 years, however, has become more intense over the past 6 weeks. It is in the lower back. He has a H/O stroke with resulting leg weakness, so is WC bound. Denies fever chills, cough sptum, CP nor SOB. No abdominal pain nausea vomiting nor diarrhea. CAT SCAN of chest and abdomen: 3.3 cm cavitary pleural-based mass. Abscess vs necrotic tumor. Large destructive mass involving sacrum & R iliac bone and L5. PMH: HTN. HLP. CKD, Stage II. CVA. MGUS. Review of Systems - Constitutional Reports system reviewed and no additional complaints, except as documented, Reports fatigue, Reports weakness, Reports weight loss, Denies fever(s) - Eyes Reports system reviewed and no additional complaints, except as documented - ENT Reports system reviewed and no additional complaints, except as documented - Cardiovascular Reports system reviewed and no additional complaints, except as documented - Respiratory Reports no additional respiratory complaints - Gastrointestinal Reports system reviewed and no additional complaints, except as documented, Denies diarrhea - Genitourinary Genitourinary: Reports no additional male genitourinary complaints - Musculoskeletal Reports system reviewed and no additional complaints, except as documented, Reports abnormal walking, Reports back pain - Integumentary/Breasts Skin/Breast: Reports no additional skin complaints - Neurologic Denies abnormal speech, Denies burning sensations, Denies dizziness, Denies syncope, Denies headache(s), Denies numbness, Denies sensory deficit, Denies tingling, Denies paresthesias - Psychiatric Reports system reviewed and no additional complaints, except as documented - Endocrine Reports no additional endocrine complaints - Hematologic/Lymphatic Reports system reviewed and no additional complaints, except as documented - Allergic/Immunologic Reports system reviewed and no additional complaints, except as documented Oncology Screenings - ECOG Performance Status ECOG Performance Status: 2 PMFSH Medical History: Medical History (Last Reviewed 12/08/21 @ 16:12 by Jeannette Hurley) Gammopathy, monoclonal Hypertension Intractable back pain Mass of lung Mass of sacrum Stroke Functional capacity: wheelchair bound Patient : No Social History: Social History (Last Reviewed 12/07/21 @ 14:30 by Colette Delgado DO) Living Situation History: Household Members: None Housing: Apartment Do you presently have visiting nurse or other home services: No Tobacco History: Patient Tobacco Use Status: Former Tobacco user Tobacco use type: Cigarette Cigarette Packs Per Day: 1 Second Hand Smoke Exposure: No 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 Current occupational status: disabled Home Medications and Allergies Current Medications: Current Medications Acetaminophen (Acetaminophen 325 Mg Tablet) 650 mg PO Q6H [facility] Last Admin: 12/03/21 05:25 Dose: 650 mg Documented by: Atenolol (Atenolol 25 Mg Tablet) 25 mg PO DAILY [facility]; Protocol Last Admin: 12/03/21 08:23 Dose: 25 mg Documented by: Atorvastatin Calcium (Atorvastatin Calcium 80 Mg Tablet) 80 mg PO BEDTIME [facility] Last Admin: 12/02/21 20:45 Dose: 80 mg Documented by: Heparin Sodium (Porcine) (Heparin Sodium,Porcine 5,000 Unit/Ml Vial) 5,000 unit SUBCUT Q8H [facility] Last Admin: 12/03/21 08:23 Dose: 5,000 unit Documented by: Ondansetron HCl (Ondansetron Hcl 4 Mg/2 Ml Vial) 4 mg IVPUSH Q8H PRN PRN Reason: Nausea and Vomiting Oxycodone HCl (Oxycodone Hcl Immed Release 5 Mg Tablet) 5 mg PO Q6H PRN PRN Reason: Pain, Severe (Pain Scale 7-10) Last Admin: 12/03/21 02:09 Dose: 5 mg Documented by: Pharmacy Consult (Consult Rx Perform Med Rec) 1 each MISCELLANE ONCE PRN PRN Reason: Consult order Sodium Chloride (0.9 % Sodium Chloride Flush 3 Ml Syringe) 3 ml IVFLUSH QSHIFT [facility] Last Admin: 12/03/21 08:22 Dose: 3 ml Documented by: Home Medications Medication Instructions Recorded Confirmed Type acetaminophen 325 mg tablet 650 mg PO DAILY PRN Pain 12/02/21 12/07/21 History atenolol 25 mg tablet 25 mg PO DAILY 12/02/21 12/07/21 History atorvastatin 80 mg tablet 80 mg PO BEDTIME 12/02/21 12/07/21 History Allergies Allergy/AdvReac Type Severity Reaction Status Date / Time No Known Allergies Allergy Verified 12/02/21 12:08 Physical Exam Vital signs: Vital Signs Temp 97.2 F 12/03/21 07:50 Pulse 73 12/03/21 07:50 Resp 18 12/03/21 07:50 BP 146/71 H 12/03/21 07:50 Pulse Ox 93 12/03/21 07:50 Intake & Output 12/02/21 12/03/21 12/03/21 18:59 06:59 18:59 Intake Total 1000 / 1540 540 / 1540 Output Total 200 / 200 Balance 1000 / 1340 340 / 1340 Urine Output (Average ml/kg/hr) 0.21 Intake: Intake, Oral Amount 540 / 540 Intake, IV Amount 1000 / 1000 0.9 % Sodium Chloride 1,000 ml 1000 / 1000 @ 999 mls/hr IV .Q1H1M [facility] Rx#: [id number] Output: Output, Urine Amount 200 / 200 Output, Stool Amount 0 / 0 Other: Meal Refused No NPO No Urine Urinal Urine Color Yellow Last Bowel Movement 12/01/21 Weight 80.8 kg 80.8 kg Weight in Grams 34883 Weight 80.8 kg - Constitutional Present: mild distress, moderate distress - Routine HEENT Exam Head: Present: normocephalic Eye: Present: normal appearance ENT: Present: mucous membranes moist - Routine Neck Exam Present: supple - Routine Respiratory Exam Present: decreased breath sounds, CTAB - Routine Cardiovascular Exam Cardiovascular: Present: RRR, S1, S2 - Routine Abdominal Exam Present: nontender - Routine Extremities Exam Present: nontender - Routine Skin Exam Present: intact - Routine Neurological Exam Present: alert - Detailed Neurological Exam: Coma Scale Eye Opening: Spontaneous (4) - Routine Psychiatric Exam Present: normal affect Hem/Onc Consult Result - Labs CBC & Chem 7: 12/03/21 05:46 12/03/21 05:46 Labs: Short CBC 12/02/21 12/03/21 Range/Units 12:53 05:46 WBC 10.5 8.5 (4.8-10.8) X10*3/uL Hgb 14.4 12.6 L (14.0-18.0) g/dl Hct 44.8 39.7 L (42.0-52.0) % Plt Count 218 192 (160-400) X10*3/uL BMP 12/02/21 12/03/21 12:53 05:46 Sodium 143 142 Potassium 3.3 3.3 Chloride 105 107 Carbon Dioxide 28 26 BUN 10 15 Creatinine 1.03 1.05 Calcium 9.6 8.8 D Liver Function 12/02/21 Range/Units 12:53 Total Bilirubin 0.8 (0.0-1.0) mg/dL AST 23 (5-37) U/L ALT 28 (0-40) U/L Alkaline Phosphatase 109 (39-117) U/L Albumin 3.6 (3.5-5.0) g/dL Urine 12/02/21 Range/Units 13:51 Urine Color YELLOW Urine Appearance HAZY Urine pH 7.0 (5.0-8.0) Ur Specific [place] 1.010 (1.005-1.025) Urine Protein 2+ H (NEG-TRACE) MG/DL Urine Glucose (UA) NEG (NEG) MG/DL Assessment and Plan Patient Active problem list reviewed?: Yes (1) Mass of sacrum Status: Inactive Assessment and plan: 76 year old gentleman, with h/o CVA, presents with chronic Back pain with acute exacerbation. Noted to have a Large sacral mass, and right cvitary lung lesion. 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 PLAN: Would recommend biopsy of the Sacral mass by I.R. Will make further recommendations, about treatment, based upon the exact pathology. Will send special immuno-stains. For now continue to institute pain control, as you are doing. [facility] review [facility] when [facility]. Thanks for the consult, I will follow along with you. Addendum: Patient did not stay for the biopsy signed out AMA. He said he will be following up with his oncologist at the [facility]. - Time Spent With Patient Time Spent with Patient (in minutes): 30
--- NOTE | 2021-12-03 10:25 | HO.PM.IMPN ---
Subjective Subjective Date of Service: 12/03/21 Review of Systems No fever, chills with reported increase pain his lower back and becoming more generalized No chest pain, palpitation No shortness of breath or coughing No abdominal pain, nausea or vomiting No urinary symptoms No any rash or wounds Physical Exam Vital Signs: Vital Signs: Last Vital Signs Temp 97.2 F 12/03/21 07:50 Pulse 73 12/03/21 07:50 Resp 18 12/03/21 07:50 BP 146/71 H 12/03/21 07:50 Pulse Ox 93 12/03/21 07:50 BMI result Body Mass Index 27.8 Const: Other: Constitutional : Alert, oriented, not in distress Neck : Normal inspection, Supple Cardiovascular : RRR, no JVP, no lower extremity edema Respiratory : fair bilateral air entry, no crackles, wheezes or rhonchi Gastrointestinal: soft, lax, Normal bowel sounds, Non tender Skin : Warm, Dry Neurological : Alert & oriented x3, mild right-sided weakness but overall deconditioning even in the left lower extremity Objective Data Active Medications Acetaminophen (Acetaminophen 325 Mg Tablet) 650 mg PO Q6H [facility] Last Admin: 12/03/21 05:25 Dose: 650 mg Documented by: THOMAS Atenolol (Atenolol 25 Mg Tablet) 25 mg PO DAILY [facility]; Protocol Last Admin: 12/03/21 08:23 Dose: 25 mg Documented by: RADHA Atorvastatin Calcium (Atorvastatin Calcium 80 Mg Tablet) 80 mg PO BEDTIME [facility] Last Admin: 12/02/21 20:45 Dose: 80 mg Documented by: THOMAS Heparin Sodium (Porcine) (Heparin Sodium,Porcine 5,000 Unit/Ml Vial) 5,000 unit SUBCUT Q8H [facility] Last Admin: 12/03/21 08:23 Dose: 5,000 unit Documented by: RADHA Ondansetron HCl (Ondansetron Hcl 4 Mg/2 Ml Vial) 4 mg IVPUSH Q8H PRN PRN Reason: Nausea and Vomiting Oxycodone HCl (Oxycodone Hcl Immed Release 5 Mg Tablet) 5 mg PO Q6H PRN PRN Reason: Pain, Severe (Pain Scale 7-10) Last Admin: 12/03/21 02:09 Dose: 5 mg Documented by: THOMAS Pharmacy Consult (Consult Rx Perform Med Rec) 1 each MISCELLANE ONCE PRN PRN Reason: Consult order Sodium Chloride (0.9 % Sodium Chloride Flush 3 Ml Syringe) 3 ml IVFLUSH QSHIFT [facility] Last Admin: 12/03/21 08:22 Dose: 3 ml Documented by: RADHA Labs CBC & Chem 7: 12/03/21 05:46 12/03/21 05:46 Labs: Laboratory Results - last 24 hr 12/02/21 12/02/21 12/02/21 12:42 12:53 12:53 MCV 89.2 MCH 28.7 MCHC 32.1 RDW 14.0 Plt Count 218 MPV 12.4 Immature Gran % (Auto) 0.8 H Neut % (Auto) 80.2 H Lymph % (Auto) 7.9 L Mcc[place]och % (Auto) 8.1 Eos % (Auto) 2.4 Baso % (Auto) 0.6 Lymph # (Auto) 0.8 L [place] # (Auto) 0.9 Eos # (Auto) 0.3 Baso # (Auto) 0.1 Abs Immat Gran (auto) 0.08 H Absolute Neuts (auto) 8.4 H Absolute Nucleated RBC 0.000 Nucleated RBC % (auto) 0.0 Anion Gap 13 Estim Creat Clear Calc 63.0 Estimated GFR > 60 Random Glucose 115 Lactic Acid Calcium 9.6 Total Bilirubin 0.8 AST 23 ALT 28 Alkaline Phosphatase 109 Troponin I High Sens 50.4 H Total Protein 6.1 L Albumin 3.6 Urine Color Urine Appearance Urine pH Ur Specific [place] Urine Protein Urine Glucose (UA) Urine Ketones Urine Blood Urine Nitrite Ur Leukocyte Esterase Urine RBC Urine WBC Ur Squamous Epith Cells Urine Bacteria Urine Opiates Screen Urine Fentanyl Screen Ur Barbiturates Screen Ur Phencyclidine Scrn Ur Amphetamines Screen U Benzodiazepines Scrn Urine Cocaine Screen U Marijuana (THC) Screen Ethyl Alcohol COVID-19 ([facility]) COVID-19 Clin Com 12/02/21 12/02/21 12/02/21 12:53 12:53 13:51 MCV MCH MCHC RDW Plt Count MPV Immature Gran % (Auto) Neut % (Auto) Lymph % (Auto) [place] % (Auto) Eos % (Auto) Baso % (Auto) Lymph # (Auto) [place] # (Auto) Eos # (Auto) Baso # (Auto) Abs Immat Gran (auto) Absolute Neuts (auto) Absolute Nucleated RBC Nucleated RBC % (auto) Anion Gap Estim Creat Clear Calc Estimated GFR Random Glucose Lactic Acid Calcium Total Bilirubin AST ALT Alkaline Phosphatase Troponin I High Sens Total Protein Albumin Urine Color YELLOW Urine Appearance HAZY Urine pH 7.0 Ur Specific [place] 1.010 Urine Protein 2+ H Urine Glucose (UA) NEG Urine Ketones NEG Urine Blood TRACE Urine Nitrite NEG Ur Leukocyte Esterase NEG Urine RBC 5-9 H Urine WBC 1-4 Ur Squamous Epith Cells TRACE Urine Bacteria NONE Urine Opiates Screen Urine Fentanyl Screen Ur Barbiturates Screen Ur Phencyclidine Scrn Ur Amphetamines Screen U Benzodiazepines Scrn Urine Cocaine Screen U Marijuana (THC) Screen Ethyl Alcohol < 10 COVID-19 ([facility]) Negative COVID-19 Clin Com See Note 12/02/21 12/02/21 12/02/21 13:51 15:39 16:09 MCV MCH MCHC RDW Plt Count MPV Immature Gran % (Auto) Neut % (Auto) Lymph % (Auto) [place] % (Auto) Eos % (Auto) Baso % (Auto) Lymph # (Auto) [place] # (Auto) Eos # (Auto) Baso # (Auto) Abs Immat Gran (auto) Absolute Neuts (auto) Absolute Nucleated RBC Nucleated RBC % (auto) Anion Gap Estim Creat Clear Calc Estimated GFR Random Glucose Lactic Acid 0.9 Calcium Total Bilirubin AST ALT Alkaline Phosphatase Troponin I High Sens 51.9 H Total Protein Albumin Urine Color Urine Appearance Urine pH Ur Specific [place] Urine Protein Urine Glucose (UA) Urine Ketones Urine Blood Urine Nitrite Ur Leukocyte Esterase Urine RBC Urine WBC Ur Squamous Epith Cells Urine Bacteria Urine Opiates Screen Not Detected Urine Fentanyl Screen Not Detected Ur Barbiturates Screen Not Detected Ur Phencyclidine Scrn Not Detected Ur Amphetamines Screen Not Detected U Benzodiazepines Scrn Not Detected Urine Cocaine Screen Not Detected U Marijuana (THC) Screen Not Detected Ethyl Alcohol COVID-19 ([facility]) COVID-19 Clin Com 12/03/21 12/03/21 05:46 05:46 MCV 91.5 MCH 29.0 MCHC 31.7 RDW 14.1 Plt Count 192 MPV 13.4 H Immature Gran % (Auto) Neut % (Auto) Lymph % (Auto) [place] % (Auto) Eos % (Auto) Baso % (Auto) Lymph # (Auto) [place] # (Auto) Eos # (Auto) Baso # (Auto) Abs Immat Gran (auto) Absolute Neuts (auto) Absolute Nucleated RBC 0.000 Nucleated RBC % (auto) 0.0 Anion Gap 12 Estim Creat Clear Calc 61.8 Estimated GFR > 60 Random Glucose 134 H Lactic Acid Calcium 8.8 D Total Bilirubin AST ALT Alkaline Phosphatase Troponin I High Sens Total Protein Albumin Urine Color Urine Appearance Urine pH Ur Specific [place] Urine Protein Urine Glucose (UA) Urine Ketones Urine Blood Urine Nitrite Ur Leukocyte Esterase Urine RBC Urine WBC Ur Squamous Epith Cells Urine Bacteria Urine Opiates Screen Urine Fentanyl Screen Ur Barbiturates Screen Ur Phencyclidine Scrn Ur Amphetamines Screen U Benzodiazepines Scrn Urine Cocaine Screen U Marijuana (THC) Screen Ethyl Alcohol COVID-19 ([facility]) COVID-[address] scan - abdomen: Radiologist's impression: Impressions Chest X-Ray 12/02/21 13:33 IMPRESSION: Hazy density overlying the right hemithorax with some elevation of the right hemidiaphragm. This may be related to overlying soft tissue artifact or atelectasis. Head CT 12/02/21 14:56 IMPRESSION: No acute intracranial pathology. Findings consistent with microangiopathy as described. Lumbar Spine CT 12/02/21 14:56 IMPRESSION: Large destructive lesion involving the sacrum and medial aspect of the right ilium measuring approximately 6.5 x 10.4 cm in size. Severe changes of centrilobular and paraseptal emphysema within the lungs with cavitated pleural-based right lung lesion. 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 No significant thoracic spine lesion identified. Degenerative disc disease lumbar spine L4-S1 without destructive bony lesion. CT of the chest as well as full CT of the pelvis would help in evaluation of above findings. Thoracic Spine CT 12/02/21 14:56 IMPRESSION: Large destructive lesion involving the sacrum and medial aspect of the right ilium measuring approximately 6.5 x 10.4 cm in size. Severe changes of centrilobular and paraseptal emphysema within the lungs with cavitated pleural-based right lung lesion. 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 No significant thoracic spine lesion identified. Degenerative disc disease lumbar spine L4-S1 without destructive bony lesion. CT of the chest as well as full CT of the pelvis would help in evaluation of above findings. Abdomen/Pelvis CT 12/02/21 17:57 IMPRESSION: 1. 3.3 cm cavitary pleural-based right lower lobe cavitary mass. Differential diagnosis would include abscess versus necrotic tumor. 2. Large destructive mass involving the sacrum and right iliac bone and L5 as described in the prior lumbar spine CT report. 3. Other incidental findings described above including colonic diverticulosis and BPH. Fleischner guidelines were followed. Chest CT 12/02/21 17:57 IMPRESSION: 1. 3.3 cm cavitary pleural-based right lower lobe cavitary mass. Differential diagnosis would include abscess versus necrotic tumor. 2. Large destructive mass involving the sacrum and right iliac bone and L5 as described in the prior lumbar spine CT report. 3. Other incidental findings described above including colonic diverticulosis and BPH. Fleischner guidelines were followed. Assessment and Plan (1) Mass of sacrum: Status: Acute (2) Intractable back pain: Status: Acute (3) Mass of lung: Status: Acute Plan A 76 years old male with PMH of HTN, HLD, CKD stage II hematuria, history of stroke with mild right-sided weakness, wheelchair-bound, monoclonal gammopathy who to the hospital for worsening back pain. Intractable back pain Secondary to sacral mass [facility] not [facility] and is not aware of any mass (they are closed over the weekend) CT abdomen, pelvis and chest with contrast as above Use Tylenol and oxycodone for pain management Oncology input appreciated, to do bone biopsy by tomorrow Hold anticoagulation overnight Cavitary lesion of the lung Seen on CT scan Seems to be related to the pleural space , active smoker Per the patient and his HCP he is scheduled to do bronchoscopy and lung biopsy by December 13. Patient did cancel the appointment multiple occasions before. Oncology following Hypertension Continue atenolol HLD continue atorvastatin History of stroke Patient not on antiplatelet?? DVT PPX Heparin The patient HCP is Desiree Plascencia. Her phone number is [phone] and would like to be included in any treatment plans. The patient will need overnight hospital stay for evaluation he the of sacral the mass and the cavitary lesion pending bone biopsies and trying to get his pain under control. Quality Stroke Does the patient have a stroke diagnosis?: No VTE Prior VTE?: No VTE Risk Level:: Medical - moderate - high VTE Device Contraindication: Treatment Not Indicated VTE Drug Contraindication: N/A - Med Ordered
[2021-12-03] MEDS: Ketorolac Tromethamine 15 MG/ML VIAL IVPUSH (12:25)
--- NOTE | 2021-12-03 14:40 | MHC.CM.PN ---
EMR REVIEWED, PER ONCOLOGY CONSULT SACRAL MASS IS LIKELY LUNG CA W/BONE MESTASTASES, CM MET W/PT WHO REPORTS HE LIVES ALONE, USES A W/C AND HAS A CANE FOR TRANSFERS, HAS GRAB BARS IN AND W/C RAMP, PT DENIES HOME SERVICES AND WOULD LIKE A VNA AND WREPORTS HE WILL NEED TRANSPORTATION HOME, PT REPORTS HE HOPES WE CAN DO IT [facility]USE [facility], PT WOULD LIKE VNA SERVICES UPON D/C WELL. PT HAD HIS NIECE'S PHONE NUMBER WRITTEN ON A PIECE OF PAPER AT BEDSIDE AND GAVE CM HER NUMBER TO ADD NEXT OF KIN, HE DOESN'T THINK SHE CAN HELP D/T LIVING IN [place] HOWEVER WAS OKAY W/CM ADDING HER NUMBER. PT REPORTS HE HAS HX OF SA AND HE QUIT DRUGS OVER 20YRS AGO AND HAS BEEN SOBER X3 YRS. 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
[2021-12-03] MEDS: Atorvastatin Calcium 80 MG TABLET PO (21:17)
[2021-12-04] MEDS: Acetaminophen 325 MG TABLET 650 MG PO (00:17)
[2021-12-04 03:32] VITALS: BP 162/92; PULSE 79; RESP 18; TEMP 36.2; O2SAT 94
[2021-12-04] MEDS: oxyCODONE HCl Immed Release 5 MG TABLET PO (04:32)
--- NOTE | 2021-12-04 06:38 | PM.EVENT ---
Event Note Date of Service: 12/04/21 Event Note: patient was to leave AMA. Reports that he is [facility] comfortable [facility]. I did discussed with him the concern for cancer,reports that he is aware and he would [facility] follow[facility] with [facility] the [facility].. I did mention to him that if he does not follow-up with his oncologist this may worsen quickly and may end up killing him. Patient is aware.
--- NOTE | 2021-12-04 12:32 | MHC.CM.PN ---
POST DC NOTE- PER REVIEW OF EMR, PATIENT GAVE PERMISSION FOR STAFF TO SPEAK WITH SATHISHGERMAINE HUTSON ([phone]) UPDATED WITH PATIENT LEAVING AMA GERMAINE ASKS FOR ASSISTANCE AND NOW HAS [facility] AD[facility] CONTACT NUMBER GERMAINE HAS ALREADY CALLED [place] [employer] FOR A WELLNESS CHECK.
--- NOTE | 2021-12-05 11:34 | PM.EVENT ---
Event Note Date of Service: 12/05/21 Event Note: Discharge summary Discharge diagnosis Intractable back pain Cavitary Lung mass Sacral mass The patient was admitted to the hospital for pain control and Oncology consult. Evaluated by Oncology team who recommended sacral mass biopsy. Pain was controlled with oral medications. The patient decided to leave the hospital against medical advice with his plan to follow-up with his primary oncologist at the [facility]. I was not presented at that time any had discussion with the night physician about leaving AMA.
== END 2021-12-04 07:15 | disposition left against medical advice (07) | DRG 181 ==
LOC: HO.ED 16:31 → HO.EDOVER 17:49 → HO.S3 18:11
PROVIDERS: Physician Assistant; Physician Assistant Medical; Admitting Provider Student in an Organized Health Care Education/Training Program; Emergency Provider Student in an Organized Health Care Education/Training Program; PCP Internal Medicine; Visit Provider Nurse Practitioner Acute Care
DX: C34.91 Malignant neoplasm of unspecified part of right bronchus or lung (principal); C79.51 Secondary malignant neoplasm of bone; I12.9 Hypertensive chronic kidney disease with stage 1 through stage 4 chronic kidney disease, or unspecified chronic kidney disease; G89.3 Neoplasm related pain (acute) (chronic); N18.2 Chronic kidney disease, stage 2 (mild); Z20.822 Contact with and (suspected) exposure to COVID-19; Z99.3 Dependence on wheelchair; D47.2 Monoclonal gammopathy; Z86.73 Personal history of transient ischemic attack (TIA), and cerebral infarction without residual deficits; Z87.891 Personal history of nicotine dependence; Z79.899 Other long term (current) drug therapy
CPT/HCPCS: 36415; 70450; 71045; 71260; 72128; 72131; 74177; 80048; 80053; 80307; 81001; 82077; 83605; 84484; 85025; 85027; 87040; 87635; 93005; 96361; 96374; 96375; 99285; J1885; J2270; J2405; Q9967

== ENCOUNTER 2021-12-07 14:05 | Inpatient (IN) | payer OTHER, SELFPAY ==
--- NOTE | ~2021-12-07 | CT_ITS ---
EXAMINATION: CT LOWER EXTREMITY NON JOINT, RIGHT CLINICAL INFORMATION: Right lateral thigh erythema, bruise COMPARISON: None TECHNIQUE: A noncontrast CT of the right lower leg is performed from the knee to the ankle. Due to patient motion artifact, right repeat images were obtained through the distal half of the lower leg. Sagittal and coronal reformats were performed. This CT examination was performed using dose optimization techniques as appropriate, variously including the following: *Automated exposure control *Adjustment of mA and/or kV according to patient size (this includes techniques or standardized protocols for targeted exams where dose is matched to indication/reason for exam; i.e. extremities or head) *Use of iterative reconstruction technique DLP: 474 FINDINGS: No fracture or malalignment of the right tibia or fibula. The ankle mortise is preserved. Small bone island of the medial talar dome. No obvious tendon tear or muscle injury. No hematoma. CT/CT lower leg RT wo con IMPRESSION: No acute osseous abnormality of the right lower leg.
--- NOTE | ~2021-12-07 | CT_ITS ---
EXAMINATION: CT CHEST, ABDOMEN AND PELVIS WITHOUT CONTRAST. CLINICAL INFORMATION: Worsening back pain, weakness. COMPARISON: CT abdomen pelvis 12/02/2021 TECHNIQUE: 5 mm thin axial and reformatted 3 mm thin sagittal and coronal images of chest, abdomen pelvis were obtained without contrast. DLP 634 FINDINGS: CHEST: There is a cavitary mass right lower lobe measuring 2.9 x 1.7 cm. There is diffuse centrilobular emphysematous changes of both lungs were bullous changes both upper lobes slightly greater on the right than left. There are ill-defined 4 mm groundglass opacity left upper lobe axial image 13/4, 5 mm groundglass opacity in the lingula and 5 mm groundglass opacity right lower lobe axial image 24/4. There is a 2 mm subpleural calcification right middle lobe axial image 27/4.. Minimal atelectatic changes are seen in both lung bases. The thyroid lobes are symmetrical and normal. The central trachea and the bronchi are widely patent. The heart size is enlarged. Great vessels are normal caliber. The ascending aorta measures 4.2 cm wide. No abnormal size mediastinal or hilar lymph nodes seen. There is no pericardial effusion. The axilla and the chest wall appears unremarkable. No gross bony abnormality seen. Abdomen and pelvis: The liver is normal size and density with several hypodense liver lesions likely simple cysts as before. No intrahepatic ductal dilatation. The gallbladder is nondistended. Visualized spleen, pancreas and bilateral adrenal glands appear unremarkable. Both kidneys are normal size, shape and position. No radiopaque renal calculi or hydronephrosis seen. There is bilateral perinephric stranding. The abdominal aorta is of normal caliber. The ascending colon measures 3.0 x 3.2 cm. Distal abdominal aorta measures 1.9 x 2.2 cm axial image 45/3. There is scattered stool, diverticuli seen throughout the colon. The appendix is normal caliber. There is moderate distention of cecum with air-fluid level and stool and gas but no pneumatosis. There is no free air or free fluid. No abnormal size vertebral lymph nodes seen. The abdominal wall appears unremarkable. There is a small lumbar canal hernia containing fat. Imaging through the pelvis reveals no free fluid no evidence of hernia. There is moderate prostate enlargement. There is a diffuse expansile lytic lesion involving the sacrum and extending into the SI joints similar previous study... Lytic lesion also involves bilateral posterior iliac bones. Degenerative disc changes L5-S1 disc level are noted. No lytic or sclerotic process seen. CT/CT abdomen pelvis wo con IMPRESSION: Moderate-sized cavitary lesion right lower lobe, stable. Several groundglass opacities less than 1 cm. Dependent bibasilar atelectasis. 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 Expansile lytic lesion involving the sacrum and lytic lesions involving bilateral posterior iliac bones. Diffuse colonic diverticulosis with mural thickening involving sigmoid colon but no pericolic fat stranding seen. There is air-fluid level and moderate stool in the cecum without distention. Appendix is normal. PLEASE NOTE: Patient has had multiple CT imaging done in the last one week.
--- NOTE | ~2021-12-07 | CT_ITS ---
EXAMINATION: CT HEAD WITHOUT CONTRAST CLINICAL INFORMATION: Confusion COMPARISON: CT head 12/02/2021 TECHNIQUE: Contiguous axial imaging was performed from the skull base to vertex without intravenous administration of contrast. This CT examination was performed using dose optimization techniques as appropriate, variously including the following: *Automated exposure control *Adjustment of mA and/or kV according to patient size (this includes techniques or standardized protocols for targeted exams where dose is matched to indication/reason for exam; i.e. extremities or head) *Use of iterative reconstruction technique DLP: 862 mGy-cm FINDINGS: There is no evidence of acute intracranial hemorrhage or edematous territorial infarction. No abnormal mass effect or midline shift is seen. Ricardo to white matter differentiation is well preserved. No extra-axial fluid collections are identified. Commensurate prominence of the ventricles and sulci is compatible with generalized parenchymal volume loss. There is periventricular and subcortical white matter hypoattenuation, most likely representing microangiopathic disease The osseous structures and soft tissues are normal. The mastoid air cells and visualized portions of the paranasal sinuses are well aerated. CT/CT head/brain wo con IMPRESSION: No acute intracranial pathology. Chronic changes as detailed above.
[2021-12-07 14:17] VITALS: BP 171/118; PULSE 94; O2SAT 94
[2021-12-07 14:22] VITALS: BP 176/83; PULSE 87; RESP 20; TEMP 36.9; O2SAT 94; BMI 27.3
--- NOTE | 2021-12-07 14:29 | ED_ITS ---
HPI - Back Pain/Injury General Chief Complaint: Back Pain/Injury Stated Complaint: MID BACK PAIN RAD TO NECK Time Seen by Provider: 12/07/21 14:20 Source: patient and old records reviewed Mode of arrival: EMS Limitations: altered mental status and other (poor historian) History of Present Illness HPI Narrative: 76 yo male with hx of MGUS, HTN, CVA WC bound, CKD, HLD just left here AMA on 12/05 was admitted for back pain has RLL cavitary lesion and R sacral mass 6.5 x 10.4 suspected primary lung cancer. He left AMA to [facility] own [facility]. He tells me he did not do that instead did some housework and developed back pain. He thinks it is 1985 and [employer] is the president which is new for the patient. He denies falls. He is yelling at the RN for pain medications immediately on arrival to the ED MD elicited complaint: back pain Pertinent past history: prior back pain and cancer Onset (ago): year(s) ( long time but worse after doing housework yesterday ) Timing: progressively worsening Severity: severe Similar Symptoms Previously: Yes Quality: throbbing Location: lumbar spine and sacrum Radiation: none Exacerbating factors: movement, walking and lifting Relieving factors: other (laying on his side) Context: bending Associated symptoms: weakness (diffuse ) Work related injury: No Related Data Home Medications Medication Instructions Recorded Confirmed acetaminophen 325 mg tablet 650 mg PO DAILY PRN Pain 12/02/21 12/07/21 atenolol 25 mg tablet 25 mg PO DAILY 12/02/21 12/07/21 atorvastatin 80 mg tablet 80 mg PO BEDTIME 12/02/21 12/07/21 Allergies Allergy/AdvReac Type Severity Reaction Status Date / Time No Known Allergies Allergy Verified 12/02/21 12:08 Review of Systems Review of Systems: Constitutional : No Weight loss, No Fever, No Chills, ENT/Mouth : No Ear Pain, No Nasal Congestion, No Sinus Pain, No Hoarseness, No sore throat, No Rhinorrhea, No Swallowing Difficulty Cardiovascular : No Chest Pain, No SOB Respiratory : No Cough, No Dyspnea Gastrointestinal : No Nausea, No Vomiting, No Diarrhea, No abdominal Pain, No Hematochezia, No Melena Genitourinary : No Dysuria, No Urinary Frequency, No Hematuria, No Urinary Incontinence, Musculoskeletal : positive back pain Skin : No Skin Lesions, No rash Neuro : pos diffuse Weakness, No Numbness, No Paresthesias, no loss of bowel or bladder incontinence, no saddle anesthesia All other systems reviewed and are negative but the patient was very limited and agitated when asking and just kept saying back pain PMFSH Past Medical History Attestation statement: The following information was validated with the patient. Medical History Gammopathy, monoclonal Hypertension Intractable back pain Mass of lung Mass of sacrum Stroke Social History Social History Household Members: None Housing: Apartment Do you presently have visiting nurse or other home services: No Alcohol intake: former Patient Tobacco Use Status: Former Tobacco user Tobacco use type: Cigarette Second Hand Smoke Exposure: No Use of substances other than those prescribed or required for medical reasons: No Advance Directives: No Advance Directives Information Provided: No service: Yes Current occupational status: disabled Physical Exam Vital Signs: Vital Signs: Last Vital Signs Temp 98.0 F 12/07/21 21:58 Pulse 87 12/07/21 16:50 Resp 16 12/07/21 16:50 BP 190/100 H 12/07/21 21:58 Pulse Ox 91 L 12/07/21 21:58 O2 Del Method 12/07/21 21:58 BMI result Body Mass Index 27.3 Appearance: Alert. Oriented X1. in pain mild acute distress. Eyes: Pupils equal, round and reactive to light. ENT: Pharynx mild dry MM Neck: Normal inspection. Neck supple. CVS: Normal heart rate and rhythm. Pulses normal. Respiratory: No respiratory distress. Breath sounds normal. Abdomen: Soft and nontender. Skin: Skin warm and dry. pale skin color. poor skin turgor. Back: ttp along R sacral area Extremities: No lower extremity edema. No calf ttp Neuro: Oriented X 1 (thinks it is 1985 and [place] is president). very hard to examine but reports sensation in extremities and inner thigh, can wiggle both feet when asked Course Course Course Narrative: spoke to connie Ramírez who is HCP she believes Kadeem is confused and she doesn't think he can made decisions. I have passed this along to the caseworker protective services and night hospitalist MDM - Back Pain/Injury MDM Narrative Medical decision making narrative: 76 yo male with hx of MGUS, HTN, CVA WC bound, CKD, HLD just left here AMA on 12/05 and stated he was going to follow up with his own [facility] doctors which never happened he reports worsening back pain after doing housework and now he is confused. At this time will need labs, UA, CT scan of head for confusion/chest/abdomen/sacral area. IV morphine for pain. Patient is a poor historian at this time. Dispo per results and findings. Lab Data Result diagrams: 12/07/21 14:50 12/07/21 14:50 Labs: Lab Results 12/07/21 12/07/21 12/07/21 Range/Units 14:50 14:50 14:50 WBC 13.0 H (4.8-10.8) X10*3/uL RBC 4.98 (4.60-5.80) X10*6/uL Hgb 14.3 (14.0-18.0) g/dl Hct 43.8 (42.0-52.0) % MCV 88.0 (80.0-98.0) fL MCH 28.7 (27.0-33.0) pg MCHC 32.6 (31.0-36.0) g/dl RDW 13.9 (11.0-16.0) % Plt Count 255 D (160-400) X10*3/uL MPV 12.5 H (9.4-12.4) fL Immature Gran % (Auto) 0.5 H (0.0-0.4) % Neut % (Auto) 86.9 H (45-73) % Lymph % (Auto) 4.8 L (20-40) % [place] % (Auto) 7.1 (2-11) % Eos % (Auto) 0.5 (0-4) % Baso % (Auto) 0.2 (0-2) % Lymph # (Auto) 0.6 L (1.2-4.9) X10*3/uL [place] # (Auto) 0.9 (0.1-1.2) X10*3/uL Eos # (Auto) 0.1 (0.0-0.4) X10*3/uL Baso # (Auto) 0.0 (0.0-0.2) X10*3/uL Abs Immat Gran (auto) 0.06 H (0.00-0.03) X10*3/uL Absolute Neuts (auto) 11.3 H (2.0-8.3) x10*3/uL Absolute Nucleated RBC 0.000 (0.0-0.012) X10*3/uL Nucleated RBC % (auto) 0.0 (0.0-0.2) /100WBC PT (9.9-13.0) SEC INR (0.9-1.1) Sodium 144 (135-145) mmol/L Potassium 3.3 (3.3-5.1) mmol/L Chloride 108 (96-108) mmol/L Carbon Dioxide 24 (22-29) mmol/L Anion Gap 15 (12-20) BUN 27 H D (9-16) mg/dL Creatinine 1.15 (0.5-1.4) mg/dL Estim Creat Clear Calc 56.0 Estimated GFR > 60 Random Glucose 139 H (60-115) mg/dL Calcium 9.3 (8.4-10.2) mg/dL Magnesium 2.1 (1.6-2.6) mg/dL Total Bilirubin 1.2 H (0.0-1.0) mg/dL Direct Bilirubin 0.6 H (0.0-0.5) mg/dL AST 27 (5-37) U/L ALT 32 (0-40) U/L Alkaline Phosphatase 111 (39-117) U/L Total Protein 5.9 L (6.5-8.0) g/dL Albumin 3.5 (3.5-5.0) g/dL COVID-19 (SHENA) Negative (Negative) COVID-19 Clin Com See Note 12/07/21 Range/Units 14:50 WBC (4.8-10.8) X10*3/uL RBC (4.60-5.80) X10*6/uL Hgb (14.0-18.0) g/dl Hct (42.0-52.0) % MCV (80.0-98.0) fL MCH (27.0-33.0) pg MCHC (31.0-36.0) g/dl RDW (11.0-16.0) % Plt Count (160-400) X10*3/uL MPV (9.4-12.4) fL Immature Gran % (Auto) (0.0-0.4) % Neut % (Auto) (45-73) % Lymph % (Auto) (20-40) % [place] % (Auto) (2-11) % Eos % (Auto) (0-4) % Baso % (Auto) (0-2) % Lymph # (Auto) (1.2-4.9) X10*3/uL [place] # (Auto) (0.1-1.2) X10*3/uL Eos # (Auto) (0.0-0.4) X10*3/uL Baso # (Auto) (0.0-0.2) X10*3/uL Abs Immat Gran (auto) (0.00-0.03) X10*3/uL Absolute Neuts (auto) (2.0-8.3) x10*3/uL Absolute Nucleated RBC (0.0-0.012) X10*3/uL Nucleated RBC % (auto) (0.0-0.2) /100WBC PT 13.2 H (9.9-13.0) SEC INR 1.2 H (0.9-1.1) Sodium (135-145) mmol/L Potassium (3.3-5.1) mmol/L Chloride (96-108) mmol/L Carbon Dioxide (22-29) mmol/L Anion Gap (12-20) BUN (9-16) mg/dL Creatinine (0.5-1.4) mg/dL Estim Creat Clear Calc Estimated GFR Random Glucose (60-115) mg/dL Calcium (8.4-10.2) mg/dL Magnesium (1.6-2.6) mg/dL Total Bilirubin (0.0-1.0) mg/dL Direct Bilirubin (0.0-0.5) mg/dL AST (5-37) U/L ALT (0-40) U/L Alkaline Phosphatase (39-117) U/L Total Protein (6.5-8.0) g/dL Albumin (3.5-5.0) g/dL COVID-19 (SHENA) (Negative) COVID-19 Clin Com Discharge Plan Discharge Clinical Impression: Intractable back pain, Acute confusion Patient Disposition: Admitted As Inpatient
[2021-12-07] MEDS: Morphine Sulfate 4 MG/ML CARTRIDGE IVPUSH (14:34)
[2021-12-07] MEDS: Morphine Sulfate Immed Release 15 MG TABLET PO (14:34)
[2021-12-07] MEDS: ondansetron HCL 4 MG/2 ML VIAL IVPUSH (14:34)
[2021-12-07 14:55] LABS: MANUAL DIFF FLAG NO
[2021-12-07 14:57] LABS: Basophils Percent Auto 0.2 % (0-2); Eosinophils Absolute Auto 0.1 X10*3/uL (0.0-0.4); Eosinophils Percent Auto 0.5 % (0-4); Hematocrit 43.8 % (42.0-52.0); Hemoglobin 14.3 g/dl (14.0-18.0); Imm Gran Abs Auto 0.06 X10*3/uL (0.00-0.03); Imm Gran Pct Auto 0.5 % (0.0-0.4); Lymphocytes Absolute Auto 0.6 X10*3/uL (1.2-4.9); Lymphocytes Percent Auto 4.8 % (20-40); Mean Corpuscular HGB Conc 32.6 g/dl (31.0-36.0); Mean Corpuscular Hemoglobin 28.7 pg (27.0-33.0); Mean Platelet Volume 12.5 fL (9.4-12.4); Monocytes Absolute Auto 0.9 X10*3/uL (0.1-1.2); Monocytes Percent Auto 7.1 % (2-11); Neutrophils Absolute Auto 11.3 x10*3/uL (2.0-8.3); Neutrophils Percent Auto 86.9 % (45-73); Platelet Count 255 X10*3/uL (160-400); Red Blood Count 4.98 X10*6/uL (4.60-5.80); Red Cell Distribution Width 13.9 % (11.0-16.0)
[2021-12-07 15:02] LABS: INTERNATIONAL NORM RATIO 1.2 (0.9-1.1); Prothrombin Time 13.2 SEC (9.9-13.0)
[2021-12-07 15:12] LABS: COVID-19 Test Negative (Negative); IDNOW Serial# 16C4AD1C
[2021-12-07 15:13] LABS: Alanine Aminotransferase 32 U/L (0-40); Albumin Level 3.5 g/dL (3.5-5.0); Alkaline Phosphatase 111 U/L (39-117); Anion Gap 15 (12-20); Aspartate Amino Transferase 27 U/L (5-37); Bilirubin Direct 0.6 mg/dL (0.0-0.5); Bilirubin Total 1.2 mg/dL (0.0-1.0); Blood Urea Nitrogen 27 mg/dL (9-16); Calcium 9.3 mg/dL (8.4-10.2); Carbon Dioxide 24 mmol/L (22-29); Chloride 108 mmol/L (96-108); Estimated Glomerular Filt Rate > 60; Glucose Random 139 mg/dL (60-115); Magnesium 2.1 mg/dL (1.6-2.6); Potassium 3.3 mmol/L (3.3-5.1); Sodium 144 mmol/L (135-145); Total Protein 5.9 g/dL (6.5-8.0)
[2021-12-07] MEDS: 0.9 % Sodium Chloride 500 ML IV (15:56)
[2021-12-07 16:50] VITALS: BP 164/84; PULSE 87; RESP 16; TEMP 36.8; O2SAT 98
--- NOTE | 2021-12-07 18:22 | PHA.MEDREC ---
Pharmacy Consult ? Medication Reconciliation Pharmacy has completed the medication reconciliation.
--- NOTE | 2021-12-07 21:48 | MHC.CM.ED ---
Addendum entered by Chantal Lawrence 12/07/21 23:00: IMM 12/07. Has Medicare part B and VA insurance. Addendum entered by Chantal Lawrence 12/07/21 22:53: Pt vax with J&J/Pfizer x1. Uses w/c and crutches. Vet connected. [facility]. Services at [facility]. 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 Pt A&Ox3. Able to make needs known. Carries on a conversation with CM. Can explain that he wants all his services at the [facility] because they know him and it's too difficult with him to go to 2 places. Is willing to speak with oncology at [facility]. States he came in tonight because of worsening pain. Order for psych evaluation. D/C plan pending psych evaluation. Will need transportation home. Original Note: Pt is a pending admission. Has not been seen by hospitalist. Hospitalized at [facility] 12/02-12/05. Has lung CA with sacral mass suspicious for metastatic disease. Pt sees Dr. Bradley at [facility]. Has Oncologist at [facility]. Pt left AMA on 12/05. Told MD he would see his own provider at the [facility]. SEE Medical Record. Pt lives alone. Has no services. 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 Has HTN and chronic hematuria. HCP/Niece Desiree Plascencia ([phone]) lives in [place]. Pt has been confused. Not orientated to time. HCP concerned that pt does not have capacity to make medical decisions per Dr. Delgado. CM to follow for d/c needs.
[2021-12-07 21:58] VITALS: BP 190/100; TEMP 36.7; O2SAT 91
--- NOTE | 2021-12-07 22:30 | PM.IMHP ---
History of Present Illness Date of Service: 12/07/21 Chief Complaint: back pain 76-year-old male with a past medical history of hypertension, hyperlipidemia, CKD, history of CVA, monoclonal gammopathy presented to the hospital with a chief complaint of back pain. Patient was recently admitted to the hospital for similar complaints, noted to have lung cavitary lesions, sacral lesions-planned for biopsy but patient left AMA. Patient reports that since he left the hospital he has been having back pain, today he has severe pain hence decided to come to the ER for further evaluation. Denies any chest pain palpitations lightheadedness or dizziness. Denies any fever chills cough. Denies any GI symptoms. Denies any numbness tingling or focal weakness. Mentions that he has right leg numbness for long time, unchanged. Denies any falls or trauma. Denies any bowel or bladder dysfunction. Review of all other systems is negative except mentioned above I also spoke to the patient's healthcare proxy who mentions that patient has been changing the story of his complaints. Also concern for patient being confused lately. ER course: Per ER team patient on presentation noted to be oriented x2; complains of back pain; exam nonfocal; CT chest abdomen pelvis showed cavitary lung lesion, sacral lesion, ascending aortic aneurysm. Patient was given pain medication. Ad[facility] for [facility] Medical History Gammopathy, monoclonal Hypertension Intractable back pain Mass of lung Mass of sacrum Stroke Social History Household Members: None Housing: Apartment Do you presently have visiting nurse or other home services: No Alcohol intake: former Patient Tobacco Use Status: Former Tobacco user Tobacco use type: Cigarette Cigarette Packs Per Day: 1 Second Hand Smoke Exposure: No service: Yes Current occupational status: disabled Meds Allergies Allergy/AdvReac Type Severity Reaction Status Date / Time No Known Allergies Allergy Verified 12/02/21 12:08 Active Medications: Current Medications Acetaminophen (Acetaminophen 325 Mg Tablet) 650 mg PO Q6H PRN PRN Reason: Pain, Mild (Pain Scale 1-3) Hydromorphone HCl (Hydromorphone Hcl 0.5 Mg/0.5 Ml Syringe) 0.5 mg IVPUSH Q4H PRN; Protocol PRN Reason: Pain, Severe (Pain Scale 7-10) Melatonin (Melatonin 3 Mg Tablet) 6 mg PO BEDTIME PRN PRN Reason: Insomnia Pharmacy Consult (Consult Rx Perform Med Rec) 1 each MISCELLANE ONCE PRN PRN Reason: Consult order Senna (Sennosides 8.6 Mg Tablet) 17.2 mg PO BEDTIME PRN PRN Reason: Constipation Sodium Chloride (0.9 % Sodium Chloride Flush 3 Ml Syringe) 3 ml IVFLUSH QSHIFT [facility] Home Medications Medication Instructions Recorded Confirmed Last Taken Type acetaminophen 325 mg tablet 650 mg PO DAILY PRN Pain 12/02/21 12/07/21 Unknown History atenolol 25 mg tablet 25 mg PO DAILY 12/02/21 12/07/21 Unknown History atorvastatin 80 mg tablet 80 mg PO BEDTIME 12/02/21 12/07/21 Unknown History Physical Exam Vital Signs and Narrative: Vital Signs: Last Vital Signs Temp 98.0 F 12/07/21 21:58 Pulse 87 12/07/21 16:50 Resp 16 12/07/21 16:50 BP 190/100 H 12/07/21 21:58 Pulse Ox 91 L 12/07/21 21:58 O2 Del Method 12/07/21 21:58 BMI result Body Mass Index 27.3 Gen: Appears be in no acute distress HEENT: NCAT, Moist mucosa. Pulmonary: Vesicular breath sounds, fair air entry CVS: Normal S1-S2 Abdomen: BS+, Soft, Nontender Extremities: Warm well perfused; right lateral thigh erythema noted, warm and tender as shown in the picture below Neuro: Alert and awake. Exam limited. Less cooperative. Moves all extremities. Results Labs CBC and Chem 7: 12/27/21 06:09 12/27/21 08:44 Labs: Laboratory Results - last 24 hr 12/07/21 12/07/21 12/07/21 14:50 14:50 14:50 MCV 88.0 MCH 28.7 MCHC 32.6 RDW 13.9 Plt Count 255 D MPV 12.5 H Immature Gran % (Auto) 0.5 H Neut % (Auto) 86.9 H Lymph % (Auto) 4.8 L [place] % (Auto) 7.1 Eos % (Auto) 0.5 Baso % (Auto) 0.2 Lymph # (Auto) 0.6 L [place] # (Auto) 0.9 Eos # (Auto) 0.1 Baso # (Auto) 0.0 Abs Immat Gran (auto) 0.06 H Absolute Neuts (auto) 11.3 H Absolute Nucleated RBC 0.000 Nucleated RBC % (auto) 0.0 PT INR Anion Gap 15 Estim Creat Clear Calc 56.0 Estimated GFR > 60 Random Glucose 139 H Calcium 9.3 Magnesium 2.1 Total Bilirubin 1.2 H Direct Bilirubin 0.6 H AST 27 ALT 32 Alkaline Phosphatase 111 Total Protein 5.9 L Albumin 3.5 COVID-19 (SHENA) Negative COVID-19 Clin Com See Note 12/07/21 14:50 MCV MCH MCHC RDW Plt Count MPV Immature Gran % (Auto) Neut % (Auto) Lymph % (Auto) [place] % (Auto) Eos % (Auto) Baso % (Auto) Lymph # (Auto) [place] # (Auto) Eos # (Auto) Baso # (Auto) Abs Immat Gran (auto) Absolute Neuts (auto) Absolute Nucleated RBC Nucleated RBC % (auto) PT 13.2 H INR 1.2 H Anion Gap Estim Creat Clear Calc Estimated GFR Random Glucose Calcium Magnesium Total Bilirubin Direct Bilirubin AST ALT Alkaline Phosphatase Total Protein Albumin COVID-19 (SHENA) COVID-19 Clin Com Imaging Radiologist's Impressions: Impressions Head CT 12/07/21 15:40 IMPRESSION: No acute intracranial pathology. Chronic changes as detailed above. Chest CT 12/07/21 15:42 IMPRESSION: Moderate-sized cavitary lesion right lower lobe, stable. Several groundglass opacities less than 1 cm. Dependent bibasilar atelectasis. 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 Expansile lytic lesion involving the sacrum and lytic lesions involving bilateral posterior iliac bones. Diffuse colonic diverticulosis with mural thickening involving sigmoid colon but no pericolic fat stranding seen. There is air-fluid level and moderate stool in the cecum without distention. Appendix is normal. PLEASE NOTE: Patient has had multiple CT imaging done in the last one week. Abdomen/Pelvis CT 12/07/21 15:43 IMPRESSION: Moderate-sized cavitary lesion right lower lobe, stable. Several groundglass opacities less than 1 cm. Dependent bibasilar atelectasis. 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 Expansile lytic lesion involving the sacrum and lytic lesions involving bilateral posterior iliac bones. Diffuse colonic diverticulosis with mural thickening involving sigmoid colon but no pericolic fat stranding seen. There is air-fluid level and moderate stool in the cecum without distention. Appendix is normal. PLEASE NOTE: Patient has had multiple CT imaging done in the last one week. Assessment and Plan (1) Back pain: Status: Acute Plan 76-year-old male with a past medical history of hypertension, hyperlipidemia, CKD, history of CVA, monoclonal gammopathy presented to the hospital with a chief complaint of back pain. Hypertensive urgency: Patient blood pressure on presentation noted to be 190/100. Likely driven by anxiety, pain, noncompliance with medications. Patient currently denies any headaches, chest pain, abdominal pain. Patient has known history of ascending aortic aneurysm. Will keep the patient on labetalol p.r.n. and is try to slowly bring down the blood pressure to the goal of less than 140/90. Back pain: Likely in the setting of sacral lesions. Patient able to move all the extremities. Pain control. Fall precautions. PT/OT eventually. Lung cavitary lesion/sacral lesions: Patient was seen by Oncology during the last admission. Plan for biopsy but patient left AMA. Will re-consult Oncology. Right Lateral thigh erythema: Will obtain CT of the leg Medical decision making capacity: Patient's family's concern the patient has stopped caring himself and not making right decisions. Mentioned that when he left the hospital from last admission the next day patient was found on the pavement in the hospital scrubs; HCP concerned about his decision-making capacity. Will consult Psychiatry for further inputs. Goals of care discussion: Had an extensive discussion with the patient's healthcare proxy Desiree. Mentioned that patient has been refusing treatments and surgeries. Had an admission at [facility] and supposed to go for surgery for his aorta and patient has been refusing. Even the last admission patient was refusing any treatments. Healthcare proxy also mentions that patient is supposed to get biopsy of his lung lesion and has failed multiple times to try to convince him. Mentioned that she wants him to be treated but if the patient wants to take the nature's course and does not want any aggressive intervention would like to talk to hospice eventually. DVT prophylaxis: Lovenox Code status: Full code. Confirmed with the patient's healthcare proxy [phone]. Quality Stroke Does the patient have a stroke diagnosis?: No VTE Prior VTE?: No VTE Risk Level:: Medical - moderate - high VTE Device Contraindication: Treatment Not Indicated VTE Drug Contraindication: N/A - Med Ordered
--- NOTE | 2021-12-07 22:47 | MHC.CM.PN ---
Pt requesting food/water. Order NPO. [place] text to Dr. Quevedo. Pt may eat.
[2021-12-07 23:05] LABS: Appearance Urine HAZY; Color Urine YELLOW; Glucose Urine UA NEG (NEG); Leukocyte Esterase Urine NEG (NEG); Nitrite Urine NEG (NEG); Specific Gravity - Urine >= 1.030 (1.005-1.025); UACC Culture Trigger NO; Urine Blood 1+ (NEG); Urine Ketones 15 MG/DL (NEG); Urine Protein 2+ MG/DL (NEG-TRACE)
[2021-12-07 23:17] LABS: Bacteria Urine TRACE /LPF; Mucus Urine 1+ /LPF; RBC Urine 0-2 /HPF (0); Squamous Epithelial Cell Urine 1+ /LPF; WBC Urine 0-2 /HPF (0-4)
[2021-12-08] VITALS (11 sets, daily range): BP systolic 136–178; BP diastolic 69–94; PULSE 66–111; RESP 16–20; TEMP 36.2–37.1; O2SAT 91–95
--- NOTE | 2021-12-08 02:25 | PC.NURSE ---
RN-RN report given.
[2021-12-08] MEDS: HYDROmorphone HCl 0.5 MG/0.5 ML SYRINGE IVPUSH (03:30)
--- NOTE | 2021-12-08 05:10 | PC.NURSE ---
pt c/o of right lateral leg pain, this RN and EDT noticed brusing and skin tear, MD aware and picture attached, plan to CT leg.
--- NOTE | 2021-12-08 05:24 | PC.NURSE ---
pt BP systolic 178, MD aware, plan to medicate per MAR
[2021-12-08 06:36] LABS: MANUAL DIFF FLAG NO
[2021-12-08 06:39] LABS: Basophils Absolute Auto 0.1 X10*3/uL (0.0-0.2); Basophils Percent Auto 0.5 % (0-2); Eosinophils Absolute Auto 0.5 X10*3/uL (0.0-0.4); Eosinophils Percent Auto 4.3 % (0-4); Hematocrit 41.2 % (42.0-52.0); Hemoglobin 13.3 g/dl (14.0-18.0); Imm Gran Abs Auto 0.07 X10*3/uL (0.00-0.03); Imm Gran Pct Auto 0.6 % (0.0-0.4); Lymphocytes Absolute Auto 0.8 X10*3/uL (1.2-4.9); Lymphocytes Percent Auto 6.6 % (20-40); Mean Corpuscular HGB Conc 32.3 g/dl (31.0-36.0); Mean Corpuscular Hemoglobin 28.8 pg (27.0-33.0); Mean Corpuscular Volume 89.2 fL (80.0-98.0); Mean Platelet Volume 12.4 fL (9.4-12.4); Monocytes Absolute Auto 0.9 X10*3/uL (0.1-1.2); Monocytes Percent Auto 7.6 % (2-11); Neutrophils Absolute Auto 9.9 x10*3/uL (2.0-8.3); Neutrophils Percent Auto 80.4 % (45-73); Platelet Count 219 X10*3/uL (160-400); Red Blood Count 4.62 X10*6/uL (4.60-5.80); White Blood Count 12.3 X10*3/uL (4.8-10.8)
[2021-12-08 07:02] LABS: Anion Gap 13 (12-20); Blood Urea Nitrogen 23 mg/dL (9-16); Calcium 8.8 mg/dL (8.4-10.2); Carbon Dioxide 23 mmol/L (22-29); Chloride 109 mmol/L (96-108); Creatinine Clr Calc Pharmacy 62.5; Estimated Glomerular Filt Rate > 60; Glucose Random 104 mg/dL (60-115); Potassium 3.2 mmol/L (3.3-5.1); Sodium 142 mmol/L (135-145)
--- NOTE | 2021-12-08 08:12 | PM.HEMONCCN ---
Subjective - Subjective Chief complaint: Consult for: Sacral Mets. Cavitary lung lesion. Patient: known to practice within the last 3 years Consult date: 12/08/21 Requesting Physician: Ashish. Primary Care Provider: Unknown Physician Medical Summary: DIAGNOSIS: CAVITARY LUNG LESION. SACRAL MASS. HPI - Consult Narrative Reason for consult: consult for: 1. Cavitary lung mass. 2. Sacral lesion. Narrative: Kadeem Kuo is a pleasant 76 year old gentleman, who was recently seen in house. He presented to the hospital with a complaint of back pain. He was recently at the hospital for similar complaints. He had been noted to have lung cavitary lesions, and sacral bone lesions. The plan was for biopsy, however he left AMA. Since then, he has been having back pain. The pain got worst and hence decided to come in for further evaluation. He denies any chest pain palpitations lightheadedness or dizziness. Denies any fever chills cough. Denies any GI symptoms. Denies focal weakness. He has right leg numbness for long time, unchanged. Denies any falls or trauma. Denies any bowel or bladder dysfunction. Patient has been rather confused lately. Exam nonfocal; CT chest abdomen pelvis showed cavitary lung lesion, sacral lesion, ascending aortic aneurysm. Patient was given pain medication. [facility]LY [facility] Medical History Hypertension, hyperlipidemia, CKD, history of CVA, monoclonal gammopathy Gammopathy, monoclonal Hypertension Intractable back pain Mass of lung Mass of sacrum Stroke . [facility] Medical History: Medical History (Last Reviewed 12/08/21 @ 16:12 by Jeannette Hurley) Gammopathy, monoclonal Hypertension Intractable back pain Mass of lung Mass of sacrum Stroke Social History: Social History (Last Reviewed 12/07/21 @ 14:30 by Colette Delgado DO) Living Situation History: Household Members: None Housing: Apartment Do you presently have visiting nurse or other home services: No Tobacco History: Patient Tobacco Use Status: Former Tobacco user Tobacco use type: Cigarette Cigarette Packs Per Day: 1 Cigarettes Per Day: 20.0 Second Hand Smoke Exposure: No 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 Current occupational status: disabled Home Medications and Allergies Current Medications: Current Medications Acetaminophen (Acetaminophen 325 Mg Tablet) 650 mg PO Q6H PRN PRN Reason: Pain, Mild (Pain Scale 1-3) Atenolol (Atenolol 25 Mg Tablet) 25 mg PO DAILY [facility]; Protocol Atorvastatin Calcium (Atorvastatin Calcium 80 Mg Tablet) 80 mg PO BEDTIME [facility] Hydromorphone HCl (Hydromorphone Hcl 0.5 Mg/0.5 Ml Syringe) 0.5 mg IVPUSH Q4H PRN; Protocol PRN Reason: Pain, Severe (Pain Scale 7-10) Last Admin: 12/08/21 03:30 Dose: 0.5 mg Labetalol HCl (Labetalol Hcl 20 Mg/4 Ml Syringe) 10 mg IVPUSH Q4H PRN PRN Reason: BP>140/90 Last Admin: 12/08/21 05:25 Dose: 10 mg Melatonin (Melatonin 3 Mg Tablet) 6 mg PO BEDTIME PRN PRN Reason: Insomnia Pharmacy Consult (Consult Rx Perform Med Rec) 1 each MISCELLANE ONCE PRN PRN Reason: Consult order Senna (Sennosides 8.6 Mg Tablet) 17.2 mg PO BEDTIME PRN PRN Reason: Constipation Sodium Chloride (0.9 % Sodium Chloride Flush 3 Ml Syringe) 3 ml IVFLUSH QSHIFT HERNANDEZ Last Admin: 12/08/21 00:01 Dose: Not Given Home Medications Medication Instructions Recorded Confirmed Type acetaminophen 325 mg tablet 650 mg PO DAILY PRN Pain 12/02/21 12/07/21 History atenolol 25 mg tablet 25 mg PO DAILY 12/02/21 12/07/21 History atorvastatin 80 mg tablet 80 mg PO BEDTIME 12/02/21 12/07/21 History Allergies Allergy/AdvReac Type Severity Reaction Status Date / Time No Known Allergies Allergy Verified 12/02/21 12:08 Physical Exam Vital signs: Vital Signs Temp 98.2 F 12/08/21 06:36 Pulse 75 12/08/21 06:36 Resp 16 12/08/21 06:36 BP 156/72 H 12/08/21 06:36 Pulse Ox 95 12/08/21 06:36 O2 Del Method 12/08/21 06:36 O2 Flow Rate 2.5 12/08/21 00:04 Intake & Output 12/07/21 12/08/21 12/08/21 18:59 06:59 18:59 Intake Total 500 / 650 150 / 650 Balance 500 / 650 150 / 650 Intake: Intake, Oral Amount 150 / 150 Intake, IV Amount 500 / 500 0.9 % Sodium Chloride 500 ml @ 500 / 500 500 mls/hr IV .Q1H HERNANDEZ Rx#: [id number] Other: NPO Yes Weight 79.379 kg Weight 79.379 kg Hem/Onc Consult Result - Labs CBC & Chem 7: 12/09/21 06:01 12/09/21 06:01 Labs: Short CBC 12/07/21 12/08/21 Range/Units 14:50 06:31 WBC 13.0 H 12.3 H (4.8-10.8) X10*3/uL Hgb 14.3 13.3 L (14.0-18.0) g/dl Hct 43.8 41.2 L (42.0-52.0) % Plt Count 255 D 219 (160-400) X10*3/uL BMP 12/07/21 12/08/21 14:50 06:31 Sodium 144 142 Potassium 3.3 3.2 L Chloride 108 109 H Carbon Dioxide 24 23 BUN 27 H D 23 H Creatinine 1.15 1.03 Calcium 9.3 8.8 Liver Function 12/07/21 Range/Units 14:50 Total Bilirubin 1.2 H (0.0-1.0) mg/dL Direct Bilirubin 0.6 H (0.0-0.5) mg/dL AST 27 (5-37) U/L ALT 32 (0-40) U/L Alkaline Phosphatase 111 (39-117) U/L Albumin 3.5 (3.5-5.0) g/dL Urine 12/07/21 Range/Units 22:59 Urine Color YELLOW Urine Appearance HAZY Urine pH 6.0 (5.0-8.0) Ur Specific [place] >= 1.030 H (1.005-1.025) Urine Protein 2+ H (NEG-TRACE) MG/DL Urine Glucose (UA) NEG (NEG) MG/DL Assessment and Plan Patient Active problem list reviewed?: Yes (1) Cavitary lesion of lung Status: Acute Assessment and plan: 76 year old gentleman, with h/o CVA, presents with chronic Back pain with acute exacerbation. He was noted to have a Large sacral mass, and right cvitary lung lesion. 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 Patient was here a week ago but elected to sign out AMA. He has been readmitted. Apparently he has been refusing other treatments: (Goals of care discussion: Had an extensive discussion with the patient's healthcare proxy Desiree. Mentioned that patient has been refusing treatments and surgeries. Had an admission at [facility] and supposed to go for surgery for his aorta and patient has been refusing. Even the last admission patient was refusing any treatments. Healthcare proxy also mentions that patient is supposed to get biopsy of his lung lesion and has failed multiple times to try to convince him. Mentioned that she wants him to be treated but if the patient wants to take the nature's course and does not want any aggressive intervention would like to talk to hospice eventually.) PLAN: I would recommend biopsy of the Sacral mass by I.R. Will make further recommendations, about treatment, based upon the exact pathology. Will send special immuno-stains. For now continue to institute pain control, as you are doing. Will review records from the [facility], when they are available. Thanks for the consult, I will follow along with you. CC: - Time Spent With Patient Time Spent with Patient (in minutes): 30
--- NOTE | 2021-12-08 08:20 | PC.NURSE ---
pt received in bed, awake and alert, complains of itchiness to right arm. IV found to be pulled out. No bleeding, removed IV, will restart IV for pain management.
[2021-12-08] MEDS: atenoloL 25 MG TABLET PO (10:44)
--- NOTE | 2021-12-08 11:26 | PC.NURSE ---
this nurse took over for kenny, will update charting and meds
--- NOTE | 2021-12-08 12:04 | MHC.CM.PN ---
EMR REVIEWED, PER HOSPITALIST PT REFUSING TESTING, ONCOLOGY RECOMMENDED BIOPSY OF SACRAL MASS TO DETERMINE PLAN FOR TX, PT CONT'S TO NEED PAIN CONTROL W/IV NARCOTICS. CM ATTEMPTED TO CONTACT Y[facility] QUINTANILLA AT 11:50AM [phone] EXT [phone] TO VERIFY SERVICES, NO ANSWER AND MESSAGE LEFT W/REQUEST FOR CALL BACK.
--- NOTE | 2021-12-08 12:39 | PC.NURSE ---
patient a&ox3, no c/o pain or discomfort, vitals have been stable, pt currently watching tv, call mays within reach, will continue to monitor
--- NOTE | 2021-12-08 13:43 | P.PNIM_ITS ---
Subjective Subjective Date of Service: 12/08/21 Interval History: cc: back pain interval history:still with back pain Cardiovascular Cardiovascular: Reports no additional cardiovascular complaints Respiratory Respiratory: Reports no additional respiratory complaints Physical Exam Vital Signs: Vital Signs: Last Vital Signs Temp 98.8 F 12/08/21 08:25 Pulse 90 12/08/21 09:35 Resp 16 12/08/21 08:25 BP 140/69 H 12/08/21 09:35 Pulse Ox 91 L 12/08/21 09:35 O2 Del Method 12/08/21 08:25 O2 Flow Rate 2.5 12/08/21 00:04 BMI result Body Mass Index 27.3 General: AO X 1, no acute distress Resp: CTA bilateral, no accessory muscles used CVS: S1,S2,RRR GI: soft, non tender, non distended Neuro: motor grossly intact, alert Psych: poor insight insight Objective Data Active Medications Acetaminophen (Acetaminophen 325 Mg Tablet) 650 mg PO Q6H PRN PRN Reason: Pain, Mild (Pain Scale 1-3) Atenolol (Atenolol 25 Mg Tablet) 25 mg PO DAILY [facility]; Protocol Last Admin: 12/08/21 10:44 Dose: 25 mg Documented By: CIERA Atorvastatin Calcium (Atorvastatin Calcium 80 Mg Tablet) 80 mg PO BEDTIME [facility] Hydromorphone HCl (Hydromorphone Hcl 0.5 Mg/0.5 Ml Syringe) 0.5 mg IVPUSH Q4H PRN; Protocol PRN Reason: Pain, Severe (Pain Scale 7-10) Last Admin: 12/08/21 03:30 Dose: 0.5 mg Documented By: HELIO Pharmacy Consult (Consult Rx Perform Med Rec) 1 each MISCELLANE ONCE PRN PRN Reason: Consult order Senna (Sennosides 8.6 Mg Tablet) 17.2 mg PO BEDTIME PRN PRN Reason: Constipation Sodium Chloride (0.9 % Sodium Chloride Flush 3 Ml Syringe) 3 ml IVFLUSH QSHIFT [facility] Last Admin: 12/08/21 11:25 Dose: Not Given Documented By: JANIE Non-Admin Reason: See Note Labs CBC & Chem 7: 12/08/21 06:31 12/08/21 06:31 Labs: Laboratory Results - last 24 hr 12/07/21 12/07/21 12/07/21 14:50 14:50 14:50 MCV 88.0 MCH 28.7 MCHC 32.6 RDW 13.9 Plt Count 255 D MPV 12.5 H Immature Gran % (Auto) 0.5 H Neut % (Auto) 86.9 H Lymph % (Auto) 4.8 L [place] % (Auto) 7.1 Eos % (Auto) 0.5 Baso % (Auto) 0.2 Lymph # (Auto) 0.6 L [place] # (Auto) 0.9 Eos # (Auto) 0.1 Baso # (Auto) 0.0 Abs Immat Gran (auto) 0.06 H Absolute Neuts (auto) 11.3 H Absolute Nucleated RBC 0.000 Nucleated RBC % (auto) 0.0 PT INR Anion Gap 15 Estim Creat Clear Calc 56.0 Estimated GFR > 60 Random Glucose 139 H Calcium 9.3 Magnesium 2.1 Total Bilirubin 1.2 H Direct Bilirubin 0.6 H AST 27 ALT 32 Alkaline Phosphatase 111 Total Protein 5.9 L Albumin 3.5 Urine Color Urine Appearance Urine pH Ur Specific [place] Urine Protein Urine Glucose (UA) Urine Ketones Urine Blood Urine Nitrite Ur Leukocyte Esterase Urine RBC Urine WBC Ur Squamous Epith Cells Urine Bacteria Hyaline Casts Urine Mucus COVID-19 (SHENA) Negative COVID-19 Clin Com See Note 12/07/21 12/07/21 12/08/21 14:50 22:59 06:31 MCV 89.2 MCH 28.8 MCHC 32.3 RDW 14.0 Plt Count 219 MPV 12.4 Immature Gran % (Auto) 0.6 H Neut % (Auto) 80.4 H Lymph % (Auto) 6.6 L [place] % (Auto) 7.6 Eos % (Auto) 4.3 H Baso % (Auto) 0.5 Lymph # (Auto) 0.8 L [place] # (Auto) 0.9 Eos # (Auto) 0.5 H Baso # (Auto) 0.1 Abs Immat Gran (auto) 0.07 H Absolute Neuts (auto) 9.9 H Absolute Nucleated RBC 0.000 Nucleated RBC % (auto) 0.0 PT 13.2 H INR 1.2 H Anion Gap Estim Creat Clear Calc Estimated GFR Random Glucose Calcium Magnesium Total Bilirubin Direct Bilirubin AST ALT Alkaline Phosphatase Total Protein Albumin Urine Color YELLOW Urine Appearance HAZY Urine pH 6.0 Ur Specific [place] >= 1.030 H Urine Protein 2+ H Urine Glucose (UA) NEG Urine Ketones 15 Urine Blood 1+ H Urine Nitrite NEG Ur Leukocyte Esterase NEG Urine RBC 0-2 Urine WBC 0-2 Ur Squamous Epith Cells 1+ Urine Bacteria TRACE Hyaline Casts 5-9 Urine Mucus 1+ COVID-19 ([facility]HENA) COVID-19 Clin Com 12/08/21 06:31 MCV MCH MCHC RDW Plt Count MPV Immature Gran % (Auto) Neut % (Auto) Lymph % (Auto) [place] % (Auto) Eos % (Auto) Baso % (Auto) Lymph # (Auto) [place] # (Auto) Eos # (Auto) Baso # (Auto) Abs Immat Gran (auto) Absolute Neuts (auto) Absolute Nucleated RBC Nucleated RBC % (auto) PT INR Anion Gap 13 Estim Creat Clear Calc 62.5 Estimated GFR > 60 Random Glucose 104 Calcium 8.8 Magnesium Total Bilirubin Direct Bilirubin AST ALT Alkaline Phosphatase Total Protein Albumin Urine Color Urine Appearance Urine pH Ur Specific [place] Urine Protein Urine Glucose (UA) Urine Ketones Urine Blood Urine Nitrite Ur Leukocyte Esterase Urine RBC Urine WBC Ur Squamous Epith Cells Urine Bacteria Hyaline Casts Urine Mucus COVID-19 (SHENA) COVID-19 Clin Com Assessment and Plan (1) Intractable back pain: Status: Acute Plan 76M presented with back pain intractable back pain due to sacral lesions from likely metastatic disease has lung cavitary lesion, ongoing work up, ideally would get biopsy of sacral lesion, currently refusing pain control PT recommending str confusion possibly due to above patient has questionable cpacity to make most medical decisions, will request psychiatry evaluation htn uncontrolled continue atenolol, pain control hypokalemia replace, monitor full code dvt prophyalxis - lovenox reason for continued hospitalization: ongoing pain control Quality Stroke Does the patient have a stroke diagnosis?: No VTE Prior VTE?: No VTE Risk Level:: Medical - moderate - high VTE Device Contraindication: Treatment Not Indicated VTE Drug Contraindication: N/A - Med Ordered
--- NOTE | 2021-12-08 13:45 | PC.NURSE ---
pt called this nurse over stating that there was a tall blonde man that was trying to obtain personal information from him and he wasnt going to give it to him and they have visited him twice this am. This nurse told the patient that if he saw the person again to let us know.
--- NOTE | 2021-12-08 13:56 | MHC.CM.NN ---
Cm receivced call back from Mat Pardo who reports pt is 100% service connected so has benefits for str, respite, hospice, ltc etc Willam will follow up w/Mat next week when have a better idea of his plan.
[2021-12-08] MEDS: Potassium Chloride ER 20 MEQ TAB.ER.PRT 40 MEQ PO (14:04)
[2021-12-08] MEDS: Acetaminophen 325 MG TABLET 650 MG PO ×2 (14:16→20:43)
[2021-12-08] MEDS: Enoxaparin Sodium 40 MG/0.4 ML SYRINGE SUBCUT (14:29)
--- NOTE | 2021-12-08 14:29 | PC.NURSE ---
flushes not give as pt has no iv access-pt ripped out access and refusing new site
--- NOTE | 2021-12-08 14:49 | PC.NURSE ---
psych came in to see the patient, she states that they will be getting in touch with case management to envoke the hcp
--- NOTE | 2021-12-08 15:32 | PM.PSYCN ---
History of Present Illness Date of Service: 12/08/2021 Chief Complaint: Back Pain Reason for Consult: capacity assessment Requesting physician: Franklyn Quevedo Discussed with referring provider: Yes (with covering provider, Dr. Amador) Sources of Information: patient interviewed and chart reviewed Additional Sources of Information: Spoke with connie Plascencia, phone [phone], with his permission. He states she is his HCP. Spoke with patient's RN, Maria Elena. HPI Narrative: Patient is a 76-year-old male with PMH of HTN, CKD, CVA,monoclonal gammopathy presented to hospital with chief complaint of back pain. He had recently been admitted here for similar complaints, noted to have lung cavitary lesions, sacral lesions, planned for biopsy but patient left AMA. He has returned due to back pain, and has been admitted for further management. Psychiatry service has been asked to meet with patient for capacity assessment. Patient was resting on his side, wearing hospital garb, fair grooming, in ED overflow. He cooperative although guarded, upon approach. He reported that he remembers meeting me yesterday. However, this was the first time I have met him. When asked the month, he reported ?December?. When asked the year, he replied ?2021 . When asked where he was, he replied ?[facility] ?. He was unable to state what city he is in. When asked why he is here, he stated ?because I am in pain ?. When asked if he understood proposed treatment while here, he stated I know I have cancer I get [facility]. when asked where that facility was, he stated [place] . When asked if he understood consequences of not getting treatment, he stated ?I am going to see my doctor at the [facility] soon ?. Patient did not report / appear to have depressed mood an affect, and did not appear to be responding to internal stimuli in any way. When asked if he lives alone, he said yes . He was able to state that he lives in [facility]. He also stated ?I don't need help . When asked if he has a healthcare proxy, he stated yes, in stated that it is his niece Desiree Plascencia. He gave verbal permission for this fiction and nonfiction prose writer to contact her. I obtained collateral information from his niece Desiree Plascencia, at [phone]. She explains that she is his healthcare proxy, and she does not currently have a copy of the form. She plans to call the [facility] and [facility] to look for it. She says that he had a copy, but that he may have lost it. When asked if there was somebody that could going to the apartment to look for it, she stated she possibly could contact the commercial property manager. She says that approximately 6 months ago she brought him to [facility], due to active oral bleeding. She stated that he was filling up cups of blood per day at that time. She says that they had recommended treatment at that time including biopsy, but that he refused and left AMA. She says she has brought him to the [facility], and they also recommended biopsies, which he refused, and left there AMA as well. She says that she has noticed a period of declining cognition, with increased memory deficits, and paranoia that others are stealing from him. She states that she 1st noticed the symptoms several years ago, and that he has steadily continue to decline. She would like to be notified if healthcare proxy does become invoked, as she wishes to be kept informed as well as consulted regarding any treatment options. 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 Has sister that lives in [facility]. Her daughter, (His niece) is his healthcare proxy. Lives home by himself, no services in-home. Review of Systems Review of Systems Yes Unobtainable due to mental status [facility] Medical History Gammopathy, monoclonal Hypertension Intractable back pain Mass of lung Mass of sacrum Stroke Family History: unknown Social History: Retired 100% service-connected [employer] . Lives by himself. No home services. Substance History: unknown Trauma History: unknown Diagnostics Vital Signs (24Hr): Vital Signs - 24 hr 12/07/21 16:50 12/07/21 21:58 12/08/21 00:04 Temperature 98.3 F 98.0 F Pulse Rate 87 111 H Respiratory Rate 16 20 Blood Pressure 164/84 H 190/100 H 136/87 Pulse Oximetry 98 91 L 92 Oxygen Delivery Method Room Air Room Air Nasal Cannula Oxygen Flow Rate 2.5 12/08/21 03:44 12/08/21 05:19 12/08/21 06:36 Temperature 98 F 98.2 F Pulse Rate 77 75 Respiratory Rate 16 16 Blood Pressure 175/90 H 178/94 H 156/72 H Pulse Oximetry 95 95 Oxygen Delivery Method Room Air Room Air Oxygen Flow Rate 12/08/21 08:25 12/08/21 09:35 Temperature 98.8 F Pulse Rate 90 90 Respiratory Rate 16 Blood Pressure 140/69 H 140/69 H Pulse Oximetry 91 L 91 L Oxygen Delivery Method Room Air Oxygen Flow Rate BMI result Body Mass Index 27.3 Labs Results: 12/08/21 06:31 12/08/21 06:31 Labs: Laboratory Results - last 48 hr 12/07/21 12/07/21 12/07/21 14:50 14:50 14:50 WBC 13.0 H RBC 4.98 Hgb 14.3 Hct 43.8 MCV 88.0 MCH 28.7 MCHC 32.6 RDW 13.9 Plt Count 255 D MPV 12.5 H Immature Gran % (Auto) 0.5 H Neut % (Auto) 86.9 H Lymph % (Auto) 4.8 L Mason % (Auto) 7.1 Eos % (Auto) 0.5 Baso % (Auto) 0.2 Lymph # (Auto) 0.6 L Mason # (Auto) 0.9 Eos # (Auto) 0.1 Baso # (Auto) 0.0 Abs Immat Gran (auto) 0.06 H Absolute Neuts (auto) 11.3 H Absolute Nucleated RBC 0.000 Nucleated RBC % (auto) 0.0 PT INR Sodium 144 Potassium 3.3 Chloride 108 Carbon Dioxide 24 Anion Gap 15 BUN 27 H D Creatinine 1.15 Estim Creat Clear Calc 56.0 Estimated GFR > 60 Random Glucose 139 H Calcium 9.3 Magnesium 2.1 Total Bilirubin 1.2 H Direct Bilirubin 0.6 H AST 27 ALT 32 Alkaline Phosphatase 111 Total Protein 5.9 L Albumin 3.5 Urine Color Urine Appearance Urine pH Ur Specific [place] Urine Protein Urine Glucose (UA) Urine Ketones Urine Blood Urine Nitrite Ur Leukocyte Esterase Urine RBC Urine WBC Ur Squamous Epith Cells Urine Bacteria Hyaline Casts Urine Mucus COVID-19 ([facility]) Negative COVID-19 Clin Com See Note 12/07/21 12/07/2122 14:50 22:59 06:31 WBC 12.3 H RBC 4.62 Hgb 13.3 L Hct 41.2 L MCV 89.2 MCH 28.8 MCHC 32.3 RDW 14.0 Plt Count 219 MPV 12.4 Immature Gran % (Auto) 0.6 H Neut % (Auto) 80.4 H Lymph % (Auto) 6.6 L Mason % (Auto) 7.6 Eos % (Auto) 4.3 H Baso % (Auto) 0.5 Lymph # (Auto) 0.8 L Mason # (Auto) 0.9 Eos # (Auto) 0.5 H Baso # (Auto) 0.1 Abs Immat Gran (auto) 0.07 H Absolute Neuts (auto) 9.9 H Absolute Nucleated RBC 0.000 Nucleated RBC % (auto) 0.0 PT 13.2 H INR 1.2 H Sodium Potassium Chloride Carbon Dioxide Anion Gap BUN Creatinine Estim Creat Clear Calc Estimated GFR Random Glucose Calcium Magnesium Total Bilirubin Direct Bilirubin AST ALT Alkaline Phosphatase Total Protein Albumin Urine Color YELLOW Urine Appearance HAZY Urine pH 6.0 Ur Specific [place] >= 1.030 H Urine Protein 2+ H Urine Glucose (UA) NEG Urine Ketones 15 Urine Blood 1+ H Urine Nitrite NEG Ur Leukocyte Esterase NEG Urine RBC 0-2 Urine WBC 0-2 Ur Squamous Epith Cells 1+ Urine Bacteria TRACE Hyaline Casts 5-9 Urine Mucus 1+ COVID-19 ([facility]NA) COVID-19 Clin Com 12/08/21 06:31 WBC RBC Hgb Hct MCV MCH MCHC RDW Plt Count MPV Immature Gran % (Auto) Neut % (Auto) Lymph % (Auto) Mason % (Auto) Eos % (Auto) Baso % (Auto) Lymph # (Auto) Mason # (Auto) Eos # (Auto) Baso # (Auto) Abs Immat Gran (auto) Absolute Neuts (auto) Absolute Nucleated RBC Nucleated RBC % (auto) PT INR Sodium 142 Potassium 3.2 L Chloride 109 H Carbon Dioxide 23 Anion Gap 13 BUN 23 H Creatinine 1.03 Estim Creat Clear Calc 62.5 Estimated GFR > 60 Random Glucose 104 Calcium 8.8 Magnesium Total Bilirubin Direct Bilirubin AST ALT Alkaline Phosphatase Total Protein Albumin Urine Color Urine Appearance Urine pH Ur Specific [place] Urine Protein Urine Glucose (UA) Urine Ketones Urine Blood Urine Nitrite Ur Leukocyte Esterase Urine RBC Urine WBC Ur Squamous Epith Cells Urine Bacteria Hyaline Casts Urine Mucus COVID-19 ([facility]NA) COVID-19 Clin Com Imaging Radiology Impressions: ITS Impressions Head CT 12/07/21 15:40 IMPRESSION: No acute intracranial pathology. Chronic changes as detailed above. Chest CT 12/07/21 15:42 IMPRESSION: Moderate-sized cavitary lesion right lower lobe, stable. Several groundglass opacities less than 1 cm. Dependent bibasilar atelectasis. 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 Expansile lytic lesion involving the sacrum and lytic lesions involving bilateral posterior iliac bones. Diffuse colonic diverticulosis with mural thickening involving sigmoid colon but no pericolic fat stranding seen. There is air-fluid level and moderate stool in the cecum without distention. Appendix is normal. PLEASE NOTE: Patient has had multiple CT imaging done in the last one week. Abdomen/Pelvis CT 12/07/21 15:43 IMPRESSION: Moderate-sized cavitary lesion right lower lobe, stable. Several groundglass opacities less than 1 cm. Dependent bibasilar atelectasis. 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 Expansile lytic lesion involving the sacrum and lytic lesions involving bilateral posterior iliac bones. Diffuse colonic diverticulosis with mural thickening involving sigmoid colon but no pericolic fat stranding seen. There is air-fluid level and moderate stool in the cecum without distention. Appendix is normal. PLEASE NOTE: Patient has had multiple CT imaging done in the last one week. Lower Extremity CT 12/08/21 10:00 IMPRESSION: No acute osseous abnormality of the right lower leg. Mental Status Exam Mental Status Exam Narrative: Well-developed, well-nourished male, resting on side. Guarded, constricted mood and affect. No perceptual disturbances noted. No abnormal movements noted, patient was resting in bed on side. Speech was fluent, unimpaired. Patient Appearance: Fatigued and Disheveled Patient Orientation: Person and Situation (I came here because I'm in pain) Level of Consciousness: Awake Patient Behavior: Guarded and Good Eye Contact Mood Description: Constricted Affect Description: Constricted Patient Cognition Impaired: Yes Speech Pattern: Appropriate Memory Description: Immediate Impaired, Recent Impaired and Working Impaired Hallucinations: None Delusions: Paranoid Ideation (believes others are trying to obtain personal information from him, niece reports he believes family members are trying to steal from him.) Thought Process: Disoriented Thought Content: positive for Disoriented Judgement: Poor Medications Medications Current Medications Acetaminophen (Acetaminophen 325 Mg Tablet) 650 mg PO Q6H PRN PRN Reason: Pain, Mild (Pain Scale 1-3) Last Admin: 12/08/21 14:16 Dose: 650 mg Atenolol (Atenolol 25 Mg Tablet) 25 mg PO DAILY [facility]; Protocol Last Admin: 12/08/21 10:44 Dose: 25 mg Atorvastatin Calcium (Atorvastatin Calcium 80 Mg Tablet) 80 mg PO BEDTIME [facility] Enoxaparin Sodium (Enoxaparin Sodium 40 Mg/0.4 Ml Syringe) 40 mg SUBCUT Q24H [facility] Last Admin: 12/08/21 14:29 Dose: 40 mg Hydromorphone HCl (Hydromorphone Hcl 0.5 Mg/0.5 Ml Syringe) 0.5 mg IVPUSH Q4H PRN; Protocol PRN Reason: Pain, Severe (Pain Scale 7-10) Last Admin: 12/08/21 03:30 Dose: 0.5 mg Pharmacy Consult (Consult Rx Perform Med Rec) 1 each MISCELLANE ONCE PRN PRN Reason: Consult order Senna (Sennosides 8.6 Mg Tablet) 17.2 mg PO BEDTIME PRN PRN Reason: Constipation Sodium Chloride (0.9 % Sodium Chloride Flush 3 Ml Syringe) 3 ml IVFLUSH QSHIFT [facility] Last Admin: 12/08/21 14:29 Dose: Not Given Allergies Allergies Allergy/AdvReac Type Severity Reaction Status Date / Time No Known Allergies Allergy Verified 12/02/21 12:08 Assessment & Plan Assessment & Plan (1) Encounter for assessment of decision-making capacity: Status: Acute Code(s): Z01.89 - Encounter for other specified special examinations Assessment and Plan: Patient appears to lack capacity at this time for decision making. He was unable to state where he was, including hospital, city. He was unable to state correct month and date. When speaking with his niece/HCP, she reports that he has appeared to be declining cognitively over the past several years. She states that he has had difficulty with his memory, self-care, and increased paranoia. He also did not appear to understand full scope of his current medical condition. He did not convey an understanding of proposed treatments, consequences of accepting or refusing proposed treatments. He appears to lack capacity to take in information regarding his medical condition, process the in a meaningful way, and make appropriate decisions. Plan 1. Patient appears to lack capacity at this time. 2. Recommend invoking healthcare proxy at this time. 3. Recommend patient not be allowed to leave AMA. I have shared this information with both his counter caser Martha Parada and attending provider, Dr. Amador. Please note, his niece has called me back, to report that she has reached out to the [facility] and [facility] paper copy of healthcare proxy. She states that at this time they could not locate one. She would like to be contacted by counter caser on Saturday. I spent minutes with the patient and/or on the patient floor today, greater than?50% of which was spent counseling/coordinating care. Patient educated on: diagnosis and therapeutic strategies Guardian/Caregiver educated on: diagnosis and therapeutic strategies Informed Consent: understands
[2021-12-08] MEDS: Atorvastatin Calcium 80 MG TABLET PO (20:43)
[2021-12-08] MEDS: HYDROmorphone HCl 2 MG TABLET 1 MG PO (22:10)
[2021-12-09 03:09] VITALS: BP 133/78; PULSE 60; RESP 16; TEMP 36.4; O2SAT 95
[2021-12-09 06:33] LABS: Hematocrit 44.4 % (42.0-52.0); Hemoglobin 14.2 g/dl (14.0-18.0); Mean Corpuscular Hemoglobin 28.5 pg (27.0-33.0); Mean Corpuscular Volume 89.2 fL (80.0-98.0); Mean Platelet Volume 12.9 fL (9.4-12.4); Platelet Count 237 X10*3/uL (160-400); Red Blood Count 4.98 X10*6/uL (4.60-5.80); Red Cell Distribution Width 14.2 % (11.0-16.0); White Blood Count 11.5 X10*3/uL (4.8-10.8)
[2021-12-09 06:56] LABS: Anion Gap 13 (12-20); Blood Urea Nitrogen 19 mg/dL (9-16); Calcium 9.1 mg/dL (8.4-10.2); Carbon Dioxide 29 mmol/L (22-29); Chloride 105 mmol/L (96-108); Creatinine Clr Calc Pharmacy 61.3; Estimated Glomerular Filt Rate > 60; Glucose Fasting 210 mg/dL (60-99); Potassium 3.5 mmol/L (3.3-5.1); Sodium 143 mmol/L (135-145)
[2021-12-09 07:31] VITALS: BP 140/68; PULSE 79; RESP 17; TEMP 36.6; O2SAT 96
[2021-12-09] MEDS: atenoloL 25 MG TABLET PO (09:24)
[2021-12-09] MEDS: Acetaminophen 325 MG TABLET 650 MG PO (09:27)
[2021-12-09] MEDS: HYDROmorphone HCl 2 MG TABLET 1 MG PO ×2 (09:28→20:15)
--- NOTE | 2021-12-09 10:15 | HO.PM.IMPN ---
Subjective Subjective Date of Service: 12/09/21 Interval History: cc: back pain interval history:still with back pain Cardiovascular Cardiovascular: Reports no additional cardiovascular complaints Respiratory Respiratory: Reports no additional respiratory complaints Physical Exam Vital Signs: Vital Signs: Last Vital Signs Temp 97.8 F 12/09/21 07:31 Pulse 79 12/09/21 07:31 Resp 17 12/09/21 07:31 BP 140/68 H 12/09/21 07:31 Pulse Ox 96 12/09/21 07:31 O2 Del Method 12/09/21 07:31 O2 Flow Rate 2.5 12/08/21 00:04 BMI result Body Mass Index 27.3 General: AO X 1, no acute distress Resp: CTA bilateral, no accessory muscles used CVS: S1,S2,RRR GI: soft, non tender, non distended Neuro: motor grossly intact, alert Psych: poor insight insight Objective Data Active Medications Acetaminophen (Acetaminophen 325 Mg Tablet) 650 mg PO Q6H PRN PRN Reason: Pain, Mild (Pain Scale 1-3) Last Admin: 12/09/21 09:27 Dose: 650 mg Documented By: DARY Atenolol (Atenolol 25 Mg Tablet) 25 mg PO DAILY [facility]; Protocol Last Admin: 12/09/21 09:24 Dose: 25 mg Documented By: DARY Atorvastatin Calcium (Atorvastatin Calcium 80 Mg Tablet) 80 mg PO BEDTIME [facility] Last Admin: 12/08/21 20:43 Dose: 80 mg Documented By: DIXIE Enoxaparin Sodium (Enoxaparin Sodium 40 Mg/0.4 Ml Syringe) 40 mg SUBCUT Q24H [facility] Last Admin: 12/08/21 14:29 Dose: 40 mg Documented By: JANIE Hydromorphone HCl (Hydromorphone Hcl 2 Mg Tablet) 1 mg PO Q4H PRN PRN Reason: Breakthrough Pain Last Admin: 12/09/21 09:28 Dose: 1 mg Documented By: DARY Pharmacy Consult (Consult Rx Perform Med Rec) 1 each MISCELLANE ONCE PRN PRN Reason: Consult order Senna (Sennosides 8.6 Mg Tablet) 17.2 mg PO BEDTIME PRN PRN Reason: Constipation Sodium Chloride (0.9 % Sodium Chloride Flush 3 Ml Syringe) 3 ml IVFLUSH QSHIFT [facility] Last Admin: 12/09/21 09:22 Dose: Not Given Documented By: DARY Non-Admin Reason: No Access Labs CBC & Chem 7: 12/09/21 06:01 12/09/21 06:01 Labs: Laboratory Results - last 24 hr 12/09/21 12/09/21 06:01 06:01 MCV 89.2 MCH 28.5 MCHC 32.0 RDW 14.2 Plt Count 237 MPV 12.9 H Absolute Nucleated RBC 0.000 Nucleated RBC % (auto) 0.0 Anion Gap 13 Estim Creat Clear Calc 61.3 Estimated GFR > 60 Fasting Glucose 210 H Calcium 9.1 Assessment and Plan (1) Intractable back pain: Status: Acute Plan 76M presented with back pain intractable back pain due to sacral lesions from 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 pain control PT recommending str confusion possibly due to above vs progression of alzheimers dementia patient has questionable capacity to make most medical decisions, psychiatry appreciated htn uncontrolled improving continue atenolol, pain control hypokalemia replaced full code dvt prophyalxis - lovenox reason for continued hospitalization: ongoing pain control, safe dispo planning Quality Stroke Does the patient have a stroke diagnosis?: No VTE Prior VTE?: No VTE Risk Level:: Medical - moderate - high VTE Device Contraindication: Treatment Not Indicated VTE Drug Contraindication: N/A - Med Ordered
[2021-12-09 11:51] VITALS: BP 154/80; PULSE 55; RESP 16; TEMP 36.6; O2SAT 93
[2021-12-09 15:22] VITALS: BP 176/83; PULSE 59; RESP 18; TEMP 36.9; O2SAT 92
[2021-12-09] MEDS: Enoxaparin Sodium 40 MG/0.4 ML SYRINGE SUBCUT (15:34)
[2021-12-09 19:12] VITALS: BP 182/86; PULSE 66; RESP 17; TEMP 36.6; O2SAT 97
[2021-12-09] MEDS: Atorvastatin Calcium 80 MG TABLET PO (20:16)
[2021-12-09 23:17] VITALS: BP 117/62; PULSE 60; RESP 16; TEMP 36.3; O2SAT 96
[2021-12-10] VITALS (7 sets, daily range): BP systolic 140–183; BP diastolic 55–92; PULSE 53–78; RESP 14–18; TEMP 36.3–36.8; O2SAT 93–98
[2021-12-10] MEDS: HYDROmorphone HCl 2 MG TABLET 1 MG PO ×4 (00:09→23:25)
[2021-12-10] MEDS: atenoloL 25 MG TABLET PO (08:12)
[2021-12-10] MEDS: Acetaminophen 325 MG TABLET 650 MG PO ×2 (08:12→14:24)
--- NOTE | 2021-12-10 10:01 | HO.PM.IMPN ---
Subjective Subjective Date of Service: 12/10/21 Interval History: cc: back pain interval history:still with back pain Cardiovascular Cardiovascular: Reports no additional cardiovascular complaints Respiratory Respiratory: Reports no additional respiratory complaints Physical Exam Vital Signs: Vital Signs: Last Vital Signs Temp 97.4 F 12/10/21 08:00 Pulse 71 12/10/21 08:00 Resp 16 12/10/21 08:00 BP 175/92 H 12/10/21 08:00 Pulse Ox 93 12/10/21 08:00 O2 Del Method 12/10/21 08:00 O2 Flow Rate 2.5 12/08/21 00:04 BMI result Body Mass Index 27.3 General: AO X 1, no acute distress Resp: CTA bilateral, no accessory muscles used CVS: S1,S2,RRR GI: soft, non tender, non distended Neuro: motor grossly intact, alert Psych: poor insight insight Objective Data Active Medications Acetaminophen (Acetaminophen 325 Mg Tablet) 650 mg PO Q6H PRN PRN Reason: Pain, Mild (Pain Scale 1-3) Last Admin: 12/10/21 08:12 Dose: 650 mg Documented By: DARY Atenolol (Atenolol 25 Mg Tablet) 25 mg PO DAILY [facility]; Protocol Last Admin: 12/10/21 08:12 Dose: 25 mg Documented By: DARY Atorvastatin Calcium (Atorvastatin Calcium 80 Mg Tablet) 80 mg PO BEDTIME [facility] Last Admin: 12/09/21 20:16 Dose: 80 mg Documented By: DIXIE Enoxaparin Sodium (Enoxaparin Sodium 40 Mg/0.4 Ml Syringe) 40 mg SUBCUT Q24H [facility] Last Admin: 12/09/21 15:34 Dose: 40 mg Documented By: DARY Hydromorphone HCl (Hydromorphone Hcl 2 Mg Tablet) 1 mg PO Q4H PRN PRN Reason: Breakthrough Pain Last Admin: 12/10/21 08:11 Dose: 1 mg Documented By: DARY Pharmacy Consult (Consult Rx Perform Med Rec) 1 each MISCELLANE ONCE PRN PRN Reason: Consult order Senna (Sennosides 8.6 Mg Tablet) 17.2 mg PO BEDTIME PRN PRN Reason: Constipation Sodium Chloride (0.9 % Sodium Chloride Flush 3 Ml Syringe) 3 ml IVFLUSH QSHIFT [facility] Last Admin: 12/10/21 07:00 Dose: Not Given Documented By: DARY Non-Admin Reason: No Access Labs CBC & Chem 7: 12/09/21 06:01 12/09/21 06:01 Assessment and Plan (1) Intractable back pain: Status: Acute Plan 76M presented with back pain intractable back pain due to sacral lesions from 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 pain control- reports pain but looks fiarly comfortable PT recommending str confusion possibly due to above vs progression of alzheimers dementia patient does not have capacity to make most medical decisions, psychiatry appreciated htn uncontrolled will add amlodipnie continue atenolol hypokalemia replaced full code dvt prophyalxis - lovenox reason for continued hospitalization: ongoing pain control, safe dispo planning Quality Stroke Does the patient have a stroke diagnosis?: No VTE Prior VTE?: No VTE Risk Level:: Medical - moderate - high VTE Device Contraindication: Treatment Not Indicated VTE Drug Contraindication: N/A - Med Ordered
[2021-12-10] MEDS: amLODIPine Besylate 5 MG TABLET PO (11:01)
[2021-12-10] MEDS: Enoxaparin Sodium 40 MG/0.4 ML SYRINGE SUBCUT (14:24)
[2021-12-10] MEDS: 0.9 % Sodium Chloride Flush 3 ML SYRINGE IVFLUSH (19:59)
[2021-12-10] MEDS: Atorvastatin Calcium 80 MG TABLET PO (19:59)
[2021-12-11] VITALS (9 sets, daily range): BP systolic 156–206; BP diastolic 74–95; PULSE 62–88; RESP 16–20; TEMP 36.1–36.7; O2SAT 95–98; BMI 27.3
[2021-12-11] MEDS: Acetaminophen 325 MG TABLET 650 MG PO ×3 (03:29→19:36)
[2021-12-11] MEDS: HYDROmorphone HCl 2 MG TABLET 1 MG PO ×3 (03:50→22:20)
[2021-12-11] MEDS: amLODIPine Besylate 5 MG TABLET PO (04:04)
--- NOTE | 2021-12-11 06:33 | PC.NURSE ---
Pt had BP 206/95 around 4am, pt c/o back pain 04/09, prn tylenol has no to little effect, prn Dilaudid 1 mg po given, Dr. Quevedo was made aware and said to give Amlodipine am dose early, med given, drowsy at times, BP rechecked= 170/85.
--- NOTE | 2021-12-11 09:23 | P.PNIM_ITS ---
Subjective Subjective Date of Service: 12/11/21 Interval History: cc: back pain interval history:still with back pain Cardiovascular Cardiovascular: Reports no additional cardiovascular complaints Respiratory Respiratory: Reports no additional respiratory complaints Physical Exam Vital Signs: Vital Signs: Last Vital Signs Temp 97.5 F 12/11/21 08:00 Pulse 88 12/11/21 08:00 Resp 18 12/11/21 08:00 BP 189/74 H 12/11/21 08:00 Pulse Ox 95 12/11/21 08:00 O2 Del Method 12/11/21 08:00 O2 Flow Rate 2.5 12/08/21 00:04 BMI result Body Mass Index 27.3 General: AO X 1, no acute distress Resp: CTA bilateral, no accessory muscles used CVS: S1,S2,RRR GI: soft, non tender, non distended Neuro: motor grossly intact, alert Psych: poor insight insight Objective Data Active Medications Acetaminophen (Acetaminophen 325 Mg Tablet) 650 mg PO Q6H PRN PRN Reason: Pain, Mild (Pain Scale 1-3) Last Admin: 12/11/21 03:29 Dose: 650 mg Documented By: THOMAS Amlodipine Besylate (Amlodipine Besylate 5 Mg Tablet) 5 mg PO DAILY [facility]; Protocol Last Admin: 12/11/21 04:04 Dose: 5 mg Documented By: THOMAS Comments: BP 206/95 H 72, Sae Rodriguez said to give this med early Atenolol (Atenolol 25 Mg Tablet) 25 mg PO DAILY [facility]; Protocol Last Admin: 12/10/21 08:12 Dose: 25 mg Documented By: DARY Atorvastatin Calcium (Atorvastatin Calcium 80 Mg Tablet) 80 mg PO BEDTIME [facility] Last Admin: 12/10/21 19:59 Dose: 80 mg Documented By: THOMAS Enoxaparin Sodium (Enoxaparin Sodium 40 Mg/0.4 Ml Syringe) 40 mg SUBCUT Q24H [facility] Last Admin: 12/10/21 14:24 Dose: 40 mg Documented By: DARY Hydromorphone HCl (Hydromorphone Hcl 2 Mg Tablet) 1 mg PO Q4H PRN PRN Reason: Breakthrough Pain Last Admin: 12/11/21 03:50 Dose: 1 mg Documented By: THOMAS Pharmacy Consult (Consult Rx Perform Med Rec) 1 each MISCELLANE ONCE PRN PRN Reason: Consult order Senna (Sennosides 8.6 Mg Tablet) 17.2 mg PO BEDTIME PRN PRN Reason: Constipation Sodium Chloride (0.9 % Sodium Chloride Flush 3 Ml Syringe) 3 ml IVFLUSH QSHIFT [facility] Last Admin: 12/10/21 19:59 Dose: 3 ml Documented By: THOMAS Labs CBC & Chem 7: 12/09/21 06:01 12/09/21 06:01 Assessment and Plan (1) Intractable back pain: Status: Acute Plan 76M presented with back pain intractable back pain due to sacral lesions from 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 pain control- appears fairly comfortable PT recommending str confusion possibly due to above vs progression of alzheimers dementia patient does not have capacity to make most medical decisions, psychiatry appreciated htn uncontrolled increased amlodipine to 10mg daily continue atenolol hypokalemia replaced full code dvt prophyalxis - lovenox reason for continued hospitalization: ongoing pain control, safe dispo planning Quality Stroke Does the patient have a stroke diagnosis?: No VTE Prior VTE?: No VTE Risk Level:: Medical - moderate - high VTE Device Contraindication: Treatment Not Indicated VTE Drug Contraindication: N/A - Med Ordered
[2021-12-11] MEDS: atenoloL 25 MG TABLET PO (09:35)
--- NOTE | 2021-12-11 10:42 | MHC.CLN ---
NUTRITION CONSULT FOR POOR PO. DIET=2 GRAM SODIUM. INTAKE 0-25%. ADDING ENSURE TID TO PROVIDE ADDITIONAL 1050 KCALS, 60 G PROTEIN. PATIENT WITH INTRACTABLE BACK PAIN SUSPECT LIMITING DESIRE FOR PO INTAKE. SAROJ=11. NO PRESSURE AREAS. ENCOURAGE INTAKE AT MEALS AND SUPPLEMENT ABLE.
--- NOTE | 2021-12-11 12:59 | MHC.CM.PN ---
EMR REVIEWED, PT'S BP REMAINS ELEVATED, PT CONT'S TO NEED IV NARCOTIC PAIN MEDICATION, CM CONTACTED PT'S NIECE GERMAINE TO DETERMINE IF SHE FOUND A COPY OF PT'S HCP, GERMAINE REPORTED SHE COULD NOT LOCATE COPY, CM DISCUSSED POSSIBILITY OF GUARDIANSHIP AND GERMAINE REPORTED SHE WOULD BE AGREEABLE TO BE PT'S GUARDIAN LONG ANY PAPERWORK THAT NEEDS TO BE SIGNED CAN BE DONE VIA FAX/EMAIL SHE MOVED TO [facility] 2 MOS AGO. GERMAINE'S CONTACT INFORMATION HAS BEEN GIVEN TO CM DIRECTOR.
[2021-12-11] MEDS: Atorvastatin Calcium 80 MG TABLET PO (19:36)
[2021-12-11] MEDS: Sennosides 8.6 MG TABLET 17.2 MG PO (19:36)
[2021-12-12] MEDS: HYDROmorphone HCl 2 MG TABLET 1 MG PO ×2 (05:57→14:27)
[2021-12-12 07:58] VITALS: BP 190/100; PULSE 80; RESP 17; TEMP 36.4; O2SAT 96
[2021-12-12] MEDS: atenoloL 25 MG TABLET PO (08:02)
[2021-12-12] MEDS: amLODIPine Besylate 10 MG TABLET PO (08:02)
--- NOTE | 2021-12-12 09:54 | P.PNIM_ITS ---
Subjective Subjective Date of Service: 12/12/21 Interval History: cc: back pain interval history: improved Cardiovascular Cardiovascular: Reports no additional cardiovascular complaints Respiratory Respiratory: Reports no additional respiratory complaints Physical Exam Vital Signs: Vital Signs: Last Vital Signs Temp 97.6 F 12/12/21 07:58 Pulse 80 12/12/21 07:58 Resp 17 12/12/21 07:58 BP 190/100 H 12/12/21 07:58 Pulse Ox 96 12/12/21 07:58 O2 Del Method 12/12/21 07:58 O2 Flow Rate 2.5 12/08/21 00:04 BMI result Body Mass Index 27.3 General: AO X 1, no acute distress Resp: CTA bilateral, no accessory muscles used CVS: S1,S2,RRR GI: soft, non tender, non distended Neuro: motor grossly intact, alert Psych: poor insight insight Objective Data Active Medications Acetaminophen (Acetaminophen 325 Mg Tablet) 650 mg PO Q6H PRN PRN Reason: Pain, Mild (Pain Scale 1-3) Last Admin: 12/11/21 19:36 Dose: 650 mg Documented By: THOMAS Amlodipine Besylate (Amlodipine Besylate 10 Mg Tablet) 10 mg PO DAILY [facility]; Protocol Last Admin: 12/12/21 08:02 Dose: 10 mg Documented By: SYDNIE Atenolol (Atenolol 25 Mg Tablet) 25 mg PO DAILY [facility]; Protocol Last Admin: 12/12/21 08:02 Dose: 25 mg Documented By: SYDNIE Atorvastatin Calcium (Atorvastatin Calcium 80 Mg Tablet) 80 mg PO BEDTIME HERNANDEZ Last Admin: 12/11/21 19:36 Dose: 80 mg Documented By: THOMAS Enoxaparin Sodium (Enoxaparin Sodium 40 Mg/0.4 Ml Syringe) 40 mg SUBCUT Q24H HERNANDEZ Last Admin: 12/10/21 14:24 Dose: 40 mg Documented By: DARY Hydromorphone HCl (Hydromorphone Hcl 2 Mg Tablet) 1 mg PO Q4H PRN PRN Reason: Breakthrough Pain Last Admin: 12/12/21 05:57 Dose: 1 mg Documented By: THOMAS Pharmacy Consult (Consult Rx Perform Med Rec) 1 each MISCELLANE ONCE PRN PRN Reason: Consult order Senna (Sennosides 8.6 Mg Tablet) 17.2 mg PO BEDTIME PRN PRN Reason: Constipation Last Admin: 12/11/21 19:36 Dose: 17.2 mg Documented By: THOMAS Sodium Chloride (0.9 % Sodium Chloride Flush 3 Ml Syringe) 3 ml IVFLUSH QSHIFT HERNANDEZ Last Admin: 12/12/21 08:02 Dose: Not Given Documented By: SYDNIE Non-Admin Reason: No Access Labs CBC & Chem 7: 12/09/21 06:01 12/09/21 06:01 Assessment and Plan (1) Intractable back pain: Status: Acute Plan 76M presented with back pain intractable back pain due 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 pain control- appears fairly comfortable PT recommending str confusion possibly due to above vs progression of alzheimers dementia patient does not have capacity to make most medical decisions, psychiatry appreciated htn uncontrolled increased amlodipine to 10mg daily continue atenolol hypokalemia replaced full code dvt prophyalxis - lovenox reason for continued hospitalization: ongoing pain control, safe dispo planning Quality Stroke Does the patient have a stroke diagnosis?: No VTE Prior VTE?: No VTE Risk Level:: Medical - moderate - high VTE Device Contraindication: Treatment Not Indicated VTE Drug Contraindication: N/A - Med Ordered
[2021-12-12 11:59] VITALS: BP 175/89; PULSE 69; RESP 16; TEMP 36.4; O2SAT 95
[2021-12-12] MEDS: Enoxaparin Sodium 40 MG/0.4 ML SYRINGE SUBCUT (14:29)
[2021-12-12 16:00] VITALS: BP 162/85; PULSE 65; RESP 17; TEMP 36.2; O2SAT 93
[2021-12-12 19:06] VITALS: BP 157/81; PULSE 86; RESP 14; TEMP 36.7; O2SAT 93
[2021-12-12] MEDS: Atorvastatin Calcium 80 MG TABLET PO (19:21)
[2021-12-12 23:21] VITALS: BP 153/83; PULSE 70; RESP 18; TEMP 36.7; O2SAT 93
[2021-12-13] MEDS: HYDROmorphone HCl 2 MG TABLET 1 MG PO ×2 (00:12→04:23)
[2021-12-13 03:13] VITALS: BP 140/75; PULSE 62; RESP 18; O2SAT 92
[2021-12-13 08:00] VITALS: BP 159/90; PULSE 67; RESP 17; TEMP 36.7; O2SAT 97
[2021-12-13] MEDS: amLODIPine Besylate 10 MG TABLET PO (08:58)
[2021-12-13] MEDS: atenoloL 25 MG TABLET PO (08:58)
--- NOTE | 2021-12-13 11:38 | MHC.CM.PN ---
Addendum entered by Martha Parada RN 12/13/21 11:43: CM ALSO CONTACTED [facility] [place] [phone] AND THEY ALSO CONFIRMED THEY DO NOT HAVE A HCP ON FILE. Original Note: CM [facility]TA[facility] AT 11:32AM AND THEY CONFIRMED THEY DO NOT HAVE A COPY OF PT'S HCP ON FILE.
--- NOTE | 2021-12-13 12:42 | PC.NURSE ---
patient refused pain meds and lovenox. aware
--- NOTE | 2021-12-13 13:10 | PC.NURSE ---
Addendum entered by Carmen Jacques RN 12/13/21 13:32: pain meds ajusted, oxycodone replaced with dilaudid. this RN went to offer new pain meds but patient said he does not need it. Original Note: offered pain meds for patient but refused, explanation is that no pain meds are adequate for pain relief, Md Moody aware, considering pain meds adjustment.
--- NOTE | 2021-12-13 13:22 | HO.PM.IMPN ---
Subjective Subjective Date of Service: 12/13/21 Interval History: C this morning Lying in the bed, complaining of back pain Review of Systems No fever, chills with reported pain his lower back No chest pain, palpitation No shortness of breath or coughing No abdominal pain, nausea or vomiting No urinary symptoms No any rash or wounds Cardiovascular Cardiovascular: Reports no additional cardiovascular complaints Respiratory Respiratory: Reports no additional respiratory complaints Physical Exam Vital Signs: Vital Signs: Last Vital Signs Temp 98.1 F 12/13/21 08:00 Pulse 67 12/13/21 08:00 Resp 17 12/13/21 08:00 BP 159/90 H 12/13/21 08:00 Pulse Ox 97 12/13/21 08:00 O2 Del Method 12/13/21 08:00 O2 Flow Rate 2.5 12/08/21 00:04 BMI result Body Mass Index 27.3 Const: Other: Constitutional : Alert, interactive, not in distress Neck : Normal inspection, Supple Cardiovascular : RRR, no JVP, no lower extremity edema Respiratory : fair bilateral air entry,? no crackles, wheezes or rhonchi Gastrointestinal:? soft, lax, Normal bowel sounds, Non tender Skin : Warm, Dry Neurological : Alert & oriented To self, mild right-sided weakness but overall deconditioning even in the left lower extremity Objective Data Active Medications Acetaminophen (Acetaminophen 325 Mg Tablet) 650 mg PO Q6H PRN PRN Reason: Pain, Mild (Pain Scale 1-3) Last Admin: 12/11/21 19:36 Dose: 650 mg Documented By: THOMAS Amlodipine Besylate (Amlodipine Besylate 10 Mg Tablet) 10 mg PO DAILY [facility]; Protocol Last Admin: 12/13/21 08:58 Dose: 10 mg Documented By: NICKOLAS Atenolol (Atenolol 25 Mg Tablet) 25 mg PO DAILY [facility]; Protocol Last Admin: 12/13/21 08:58 Dose: 25 mg Documented By: NICKOLAS Atorvastatin Calcium (Atorvastatin Calcium 80 Mg Tablet) 80 mg PO BEDTIME [facility] Last Admin: 12/12/21 19:21 Dose: 80 mg Documented By: LILLY Enoxaparin Sodium (Enoxaparin Sodium 40 Mg/0.4 Ml Syringe) 40 mg SUBCUT Q24H [facility] Last Admin: 12/13/21 12:38 Dose: Not Given Documented By: NICKOLAS Non-Admin Reason: Patient Refused Hydromorphone HCl (Hydromorphone Hcl 2 Mg Tablet) 1 mg PO Q4H PRN PRN Reason: Pain, Severe (Pain Scale 7-10) Pharmacy Consult (Consult Rx Perform Med Rec) 1 each MISCELLANE ONCE PRN PRN Reason: Consult order Senna (Sennosides 8.6 Mg Tablet) 17.2 mg PO BEDTIME PRN PRN Reason: Constipation Last Admin: 12/11/21 19:36 Dose: 17.2 mg Documented By: THOMAS Sodium Chloride (0.9 % Sodium Chloride Flush 3 Ml Syringe) 3 ml IVFLUSH QSHIFT HERNANDEZ Last Admin: 12/13/21 08:58 Dose: Not Given Documented By: NICKOLAS Non-Admin Reason: No Access Labs CBC & Chem 7: 12/09/21 06:01 12/09/21 06:01 Assessment and Plan (1) Intractable back pain: Status: Acute (2) Acute confusion: Status: Acute (3) Cavitary lesion of lung: Status: Acute Plan 76M presented with back pain intractable back pain due 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 pain control- appears fairly comfortable PT recommending str confusion possibly due to above vs progression of alzheimers dementia patient does not have capacity to make most medical decisions or leave AMA, psychiatry appreciated physical deconditioning PT recommended STR placement htn uncontrolled continue amlodipine to 10mg daily continue atenolol hypokalemia replaced full code dvt prophyalxis - lovenox reason for continued hospitalization: ongoing pain control, safe dispo planning Quality Stroke Does the patient have a stroke diagnosis?: No VTE Prior VTE?: No VTE Risk Level:: Medical - moderate - high VTE Device Contraindication: Treatment Not Indicated VTE Drug Contraindication: N/A - Med Ordered
[2021-12-13] MEDS: Atorvastatin Calcium 80 MG TABLET PO (19:33)
[2021-12-14] MEDS: HYDROmorphone HCl 2 MG TABLET 1 MG PO (02:00)
[2021-12-14 07:57] VITALS: BP 138/76; PULSE 76; RESP 17; TEMP 36.5; O2SAT 94
--- NOTE | 2021-12-14 12:06 | HO.PM.IMPN ---
Subjective Subjective Date of Service: 12/14/21 Interval History: refused evaluation Review of Systems No fever, chills pain his lower back No chest pain, palpitation No shortness of breath or coughing No abdominal pain, nausea or vomiting No urinary symptoms No any rash or wounds Physical Exam Vital Signs: Vital Signs: Last Vital Signs Temp 97.7 F 12/14/21 07:57 Pulse 76 12/14/21 07:57 Resp 17 12/14/21 07:57 BP 138/76 12/14/21 07:57 Pulse Ox 94 12/14/21 07:57 O2 Del Method 12/14/21 07:57 O2 Flow Rate 2.5 12/08/21 00:04 BMI result Body Mass Index 27.3 Const: Other: Constitutional : Alert, not in distress Neck : Normal inspection, Supple Cardiovascular :no JVP, no lower extremity edema Respiratory : chest wall moving bilaterally,? no in distress Skin : Warm, Dry Neurological : Alert & oriented To self, mild right-sided weakness but overall deconditioning even in the left lower extremity Objective Data Active Medications Acetaminophen (Acetaminophen 325 Mg Tablet) 650 mg PO Q6H PRN PRN Reason: Pain, Mild (Pain Scale 1-3) Last Admin: 12/11/21 19:36 Dose: 650 mg Documented By: THOMAS Amlodipine Besylate (Amlodipine Besylate 10 Mg Tablet) 10 mg PO DAILY [facility]; Protocol Last Admin: 12/14/21 09:16 Dose: Not Given Documented By: NICKOLAS Non-Admin Reason: Patient Refused Atenolol (Atenolol 50 Mg Tablet) 50 mg PO DAILY [facility]; Protocol Last Admin: 12/14/21 09:16 Dose: Not Given Documented By: NICKOLAS Non-Admin Reason: Patient Refused Atorvastatin Calcium (Atorvastatin Calcium 80 Mg Tablet) 80 mg PO BEDTIME [facility] Last Admin: 12/13/21 19:33 Dose: 80 mg Documented By: ROSA Enoxaparin Sodium (Enoxaparin Sodium 40 Mg/0.4 Ml Syringe) 40 mg SUBCUT Q24H [facility] Last Admin: 12/13/21 12:38 Dose: Not Given Documented By: NICKOLAS Non-Admin Reason: Patient Refused Hydromorphone HCl (Hydromorphone Hcl 2 Mg Tablet) 1 mg PO Q4H PRN PRN Reason: Pain, Severe (Pain Scale 7-10) Last Admin: 12/14/21 02:00 Dose: 1 mg Documented By: ROSA Pharmacy Consult (Consult Rx Perform Med Rec) 1 each MISCELLANE ONCE PRN PRN Reason: Consult order Senna (Sennosides 8.6 Mg Tablet) 17.2 mg PO BEDTIME PRN PRN Reason: Constipation Last Admin: 12/11/21 19:36 Dose: 17.2 mg Documented By: THOMAS Sodium Chloride (0.9 % Sodium Chloride Flush 3 Ml Syringe) 3 ml IVFLUSH QSHIFT HERNANDEZ Last Admin: 12/14/21 09:14 Dose: Not Given Documented By: NICKOLAS Non-Admin Reason: No Access Labs CBC & Chem 7: 12/09/21 06:01 12/09/21 06:01 Assessment and Plan (1) Intractable back pain: Status: Acute (2) Acute confusion: Status: Acute (3) Cavitary lesion of lung: Status: Acute Plan 76M presented with back pain intractable back pain due 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 pain control- appears fairly comfortable PT recommending str confusion possibly due to above vs progression of alzheimers dementia patient does not have capacity to make most medical decisions or leave AMA, psychiatry appreciated physical deconditioning PT recommended STR placement htn uncontrolled continue amlodipine to 10mg daily continue atenolol hypokalemia replaced full code dvt prophyalxis - lovenox reason for continued hospitalization: ongoing pain control, pending guardianship, safe dispo planning Quality Stroke Does the patient have a stroke diagnosis?: No VTE Prior VTE?: No VTE Risk Level:: Medical - moderate - high VTE Device Contraindication: Treatment Not Indicated VTE Drug Contraindication: N/A - Med Ordered
[2021-12-14 15:52] VITALS: BP 145/81; PULSE 87; RESP 18; TEMP 36.5; O2SAT 94
[2021-12-14 16:00] VITALS: RESP 20
[2021-12-14 19:42] VITALS: BP 169/91; PULSE 89; RESP 18; TEMP 36.1; O2SAT 94
[2021-12-15 08:00] VITALS: BP 192/90; PULSE 77; RESP 18; TEMP 36.2; O2SAT 96
[2021-12-15] MEDS: amLODIPine Besylate 10 MG TABLET PO (08:48)
[2021-12-15] MEDS: atenoloL 50 MG TABLET PO (08:48)
[2021-12-15 11:49] VITALS: BP 132/73; PULSE 60; RESP 17; TEMP 36.3; O2SAT 96
--- NOTE | 2021-12-15 11:58 | HO.PM.IMPN ---
Subjective Subjective Date of Service: 12/15/21 Interval History: refused evaluation Aggressive behavior to were the medical staff Review of Systems Review of Systems: Yes all other systems are reviewed and are negative Physical Exam Vital Signs: Vital Signs: Last Vital Signs Temp 97.4 F 12/15/21 11:49 Pulse 60 12/15/21 11:49 Resp 17 12/15/21 11:49 BP 132/73 12/15/21 11:49 Pulse Ox 96 12/15/21 11:49 O2 Del Method 12/15/21 11:49 O2 Flow Rate 2.5 12/08/21 00:04 BMI result Body Mass Index 27.3 Const: Other: Constitutional : Alert, not in distress Neck : Normal inspection Cardiovascular :no JVP, no lower extremity edema Respiratory : chest wall moving bilaterally,? no in distress Skin : Dry Objective Data Active Medications Acetaminophen (Acetaminophen 325 Mg Tablet) 650 mg PO Q6H PRN PRN Reason: Pain, Mild (Pain Scale 1-3) Last Admin: 12/11/21 19:36 Dose: 650 mg Documented By: THOMAS Amlodipine Besylate (Amlodipine Besylate 10 Mg Tablet) 10 mg PO DAILY [facility]; Protocol Last Admin: 12/15/21 08:48 Dose: 10 mg Documented By: NICKOLAS Atenolol (Atenolol 50 Mg Tablet) 50 mg PO DAILY [facility]; Protocol Last Admin: 12/15/21 08:48 Dose: 50 mg Documented By: NICKOLAS Atorvastatin Calcium (Atorvastatin Calcium 80 Mg Tablet) 80 mg PO BEDTIME [facility] Last Admin: 12/14/21 20:19 Dose: Not Given Documented By: NANCY Non-Admin Reason: Patient Refused Enoxaparin Sodium (Enoxaparin Sodium 40 Mg/0.4 Ml Syringe) 40 mg SUBCUT Q24H [facility] Last Admin: 12/14/21 15:59 Dose: Not Given Documented By: NICKOLAS Non-Admin Reason: Patient Refused Hydromorphone HCl (Hydromorphone Hcl 2 Mg Tablet) 1 mg PO Q4H PRN PRN Reason: Pain, Severe (Pain Scale 7-10) Last Admin: 12/14/21 02:00 Dose: 1 mg Documented By: ROSA Pharmacy Consult (Consult Rx Perform Med Rec) 1 each MISCELLANE ONCE PRN PRN Reason: Consult order Senna (Sennosides 8.6 Mg Tablet) 17.2 mg PO BEDTIME PRN PRN Reason: Constipation Last Admin: 12/11/21 19:36 Dose: 17.2 mg Documented By: THOMAS Sodium Chloride (0.9 % Sodium Chloride Flush 3 Ml Syringe) 3 ml IVFLUSH QSHIFT HERNANDEZ Last Admin: 12/15/21 07:00 Dose: Not Given Documented By: NICKOLAS Non-Admin Reason: No Access Labs CBC & Chem 7: 12/09/21 06:01 12/09/21 06:01 Assessment and Plan (1) Intractable back pain: Status: Acute (2) Acute confusion: Status: Acute (3) Behavioral change: Status: Acute Plan 76M presented with back pain Behavioral problem, change More aggressive, refusing to take medications or follow commands Recurrent redirection and orientation Pending psychiatry evaluation intractable back pain due 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 pain control- appears fairly comfortable PT recommending str confusion Head CT negative for any masses possibly due to above vs progression of alzheimers dementia patient does not have capacity to make most medical decisions or leave AMA, psychiatry appreciated physical deconditioning PT recommended STR placement htn uncontrolled continue amlodipine to 10mg daily continue atenolol hypokalemia replaced full code dvt prophyalxis - lovenox reason for continued hospitalization: ongoing pain control, pending guardianship, safe dispo planning Quality Stroke Does the patient have a stroke diagnosis?: No VTE Prior VTE?: No VTE Risk Level:: Medical - moderate - high VTE Device Contraindication: Treatment Not Indicated VTE Drug Contraindication: N/A - Med Ordered
--- NOTE | 2021-12-15 12:50 | P.CNPS_ITS ---
History of Present Illness Date of Service: 12/15/21 Chief Complaint: Back Pain Reason for Consult: Patient refusing medications, exam, aggressive. Requesting physician: Tanner Moody Discussed with referring provider: Yes Sources of Information: chart reviewed HPI Narrative: Asked to meet with patient has a follow-up appointment, as had assessed patient 1 week ago, determined that he lacked capacity at that time for decision making. Past Psychiatric History: unknown Medical Evaluation Reviewed: Yes Review of Systems Review of Systems Yes Unobtainable due to mental status [facility] Medical History Gammopathy, monoclonal Hypertension Intractable back pain Mass of lung Mass of sacrum Stroke Family History: unknown Social History: Retired [employer]% [employer] . Lives by himself. No home services. Trauma History: unknown Diagnostics Vital Signs (24Hr): Vital Signs - 24 hr 12/14/21 15:52 12/14/21 16:00 12/14/21 19:42 Temperature 97.7 F 97.0 F Pulse Rate 87 89 Respiratory Rate 18 20 18 Blood Pressure 145/81 H 169/91 H Pulse Oximetry 94 94 Oxygen Delivery Method Room Air Room Air 12/15/21 08:00 12/15/21 11:49 Temperature 97.1 F 97.4 F Pulse Rate 77 60 Respiratory Rate 18 17 Blood Pressure 192/90 H 132/73 Pulse Oximetry 96 96 Oxygen Delivery Method Room Air Room Air BMI result Body Mass Index 27.3 Labs Results: 12/09/21 06:01 12/09/21 06:01 Imaging Radiology Impressions: ITS Impressions Head CT 12/07/21 15:40 IMPRESSION: No acute intracranial pathology. Chronic changes as detailed above. Chest CT 12/07/21 15:42 IMPRESSION: Moderate-sized cavitary lesion right lower lobe, stable. Several groundglass opacities less than 1 cm. Dependent bibasilar atelectasis. 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 Expansile lytic lesion involving the sacrum and lytic lesions involving bilateral posterior iliac bones. Diffuse colonic diverticulosis with mural thickening involving sigmoid colon but no pericolic fat stranding seen. There is air-fluid level and moderate stool in the cecum without distention. Appendix is normal. PLEASE NOTE: Patient has had multiple CT imaging done in the last one week. Abdomen/Pelvis CT 12/07/21 15:43 IMPRESSION: Moderate-sized cavitary lesion right lower lobe, stable. Several groundglass opacities less than 1 cm. Dependent bibasilar atelectasis. 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 Expansile lytic lesion involving the sacrum and lytic lesions involving bilateral posterior iliac bones. Diffuse colonic diverticulosis with mural thickening involving sigmoid colon but no pericolic fat stranding seen. There is air-fluid level and moderate stool in the cecum without distention. Appendix is normal. PLEASE NOTE: Patient has had multiple CT imaging done in the last one week. Lower Extremity CT 12/08/21 10:00 IMPRESSION: No acute osseous abnormality of the right lower leg. Mental Status Exam Mental Status Exam Narrative: Well-developed, well-nourished male. No abnormal movements noted, patient was resting in bed on side. NAD observed, appeared to be sleeping. Otherwise unable to obtain full mental status exam at this time. Medications Medications Current Medications Acetaminophen (Acetaminophen 325 Mg Tablet) 650 mg PO Q6H PRN PRN Reason: Pain, Mild (Pain Scale 1-3) Last Admin: 12/11/21 19:36 Dose: 650 mg Amlodipine Besylate (Amlodipine Besylate 10 Mg Tablet) 10 mg PO DAILY [facility]; Protocol Last Admin: 12/15/21 08:48 Dose: 10 mg Atenolol (Atenolol 50 Mg Tablet) 50 mg PO DAILY [facility]; Protocol Last Admin: 12/15/21 08:48 Dose: 50 mg Atorvastatin Calcium (Atorvastatin Calcium 80 Mg Tablet) 80 mg PO BEDTIME [facility]NAN[facility] Last Admin: 12/14/21 20:19 Dose: Not Given Hydromorphone HCl (Hydromorphone Hcl 2 Mg Tablet) 1 mg PO Q4H PRN PRN Reason: Pain, Severe (Pain Scale 7-10) Last Admin: 12/14/21 02:00 Dose: 1 mg Pharmacy Consult (Consult Rx Perform Med Rec) 1 each MISCELLANE ONCE PRN PRN Reason: Consult order Rivaroxaban (Rivaroxaban 20 Mg Tablet) 20 mg PO DAILY [facility] Senna (Sennosides 8.6 Mg Tablet) 17.2 mg PO BEDTIME PRN PRN Reason: Constipation Last Admin: 12/11/21 19:36 Dose: 17.2 mg Sodium Chloride (0.9 % Sodium Chloride Flush 3 Ml Syringe) 3 ml IVFLUSH QSHIFT HERNANDEZ Last Admin: 12/15/21 07:00 Dose: Not Given Allergies Allergies Allergy/AdvReac Type Severity Reaction Status Date / Time No Known Allergies Allergy Verified 12/02/21 12:08 Assessment & Plan Assessment & Plan (1) Behavioral change: Status: Acute Code(s): R46.89 - Other symptoms and signs involving appearance and behavior Assessment and Plan: Asked to follow-up with patient regarding agitation, refusing medications, aggressive. When I attempted to meet with patient he appeared to be sleeping, in NAD. Resting on side. Hospital garb half on torso. Patient RN stated no issues at this time. Unit bilingual case manager reports in process of obtaining court date for guardianship. Plan Recommend Seroquel 25 mg b.i.d. scheduled. Also may wish to add trazodone 12.5 mg scheduled at 14:00 daily. May want to add Haldol 1 mg t.i.d. p.r.n. for agitation, could be given p.o. or IM as needed. I have shared these with provider Dr. Tanner Moody. Also, as reminder, delirium prevention strategies: Lights on, shades up during the day. Lights off, shades drawn at night. Minimize nighttime disruptions. Help keep patient awake and engaged during the day. Maximize access to glasses/hearing aids. Avoid benzodiazepines, anticholinergic medications. I spent minutes with the patient and/or on the patient floor today, greater than?50% of which was spent counseling/coordinating care.
[2021-12-15 16:00] VITALS: BP 140/71; PULSE 60; RESP 18; TEMP 36.2; O2SAT 96
[2021-12-16] VITALS: BP 146/85; PULSE 69; RESP 16; TEMP 36.6; O2SAT 94
[2021-12-16 03:35] VITALS: BP 143/95; PULSE 77; RESP 16; TEMP 36.2; O2SAT 96
[2021-12-16 07:39] VITALS: BP 136/90; PULSE 79; RESP 20; TEMP 36.3; O2SAT 97
--- NOTE | 2021-12-16 11:13 | P.PNIM_ITS ---
Subjective Subjective Date of Service: 12/16/21 Interval History: More interactive today about gets aggravated quickly Report pain in his back Aggressive behavior to were the medical staff and refusing medications Review of Systems No fever, chills pain his lower back No chest pain, palpitation No shortness of breath or coughing No abdominal pain, nausea or vomiting No urinary symptoms No any rash or wounds Physical Exam Vital Signs: Vital Signs: Last Vital Signs Temp 97.3 F 12/16/21 07:39 Pulse 79 12/16/21 07:39 Resp 20 12/16/21 07:39 BP 136/90 H 12/16/21 07:39 Pulse Ox 97 12/16/21 07:39 O2 Del Method 12/16/21 07:39 O2 Flow Rate 2.5 12/08/21 00:04 BMI result Body Mass Index 27.3 Const: Other: Constitutional : Alert, not in distress Neck : Normal inspection Cardiovascular :no JVP, no lower extremity edema Respiratory : chest wall moving bilaterally,? no in distress Skin : Dry Objective Data Active Medications Acetaminophen (Acetaminophen 325 Mg Tablet) 650 mg PO Q6H PRN PRN Reason: Pain, Mild (Pain Scale 1-3) Last Admin: 12/11/21 19:36 Dose: 650 mg Documented By: THOMAS Amlodipine Besylate (Amlodipine Besylate 10 Mg Tablet) 10 mg PO DAILY COUNTS INCLUDE 234 BEDS AT THE [facility]; Protocol Last Admin: 12/16/21 09:08 Dose: Not Given Documented By: RADHA Non-Admin Reason: Patient Refused Atenolol (Atenolol 50 Mg Tablet) 50 mg PO DAILY COUNTS INCLUDE 234 BEDS AT THE [facility]; Protocol Last Admin: 12/16/21 09:08 Dose: Not Given Documented By: RADHA Non-Admin Reason: Patient Refused Atorvastatin Calcium (Atorvastatin Calcium 80 Mg Tablet) 80 mg PO BEDTIME COUNTS INCLUDE 234 BEDS AT THE [facility] Last Admin: 12/15/21 21:31 Dose: Not Given Documented By: NANCY Non-Admin Reason: Patient Refused Haloperidol Lactate (Haloperidol Lactate 5 Mg/Ml Vial) 1 mg IM Q8H PRN PRN Reason: anxiety/restlessness Hydromorphone HCl (Hydromorphone Hcl 2 Mg Tablet) 1 mg PO Q4H PRN PRN Reason: Pain, Severe (Pain Scale 7-10) Last Admin: 12/14/21 02:00 Dose: 1 mg Documented By: ROSA Pharmacy Consult (Consult Rx Perform Med Rec) 1 each MISCELLANE ONCE PRN PRN Reason: Consult order Quetiapine Fumarate (Quetiapine Fumarate 25 Mg Tablet) 25 mg PO BID COUNTS INCLUDE 234 BEDS AT THE [facility] Last Admin: 12/16/21 09:09 Dose: Not Given Documented By: RADHA Non-Admin Reason: Patient Refused Rivaroxaban (Rivaroxaban 20 Mg Tablet) 20 mg PO DAILY COUNTS INCLUDE 234 BEDS AT THE [facility] Last Admin: 12/16/21 09:09 Dose: Not Given Documented By: RADHA Non-Admin Reason: Patient Refused Senna (Sennosides 8.6 Mg Tablet) 17.2 mg PO BEDTIME PRN PRN Reason: Constipation Last Admin: 12/11/21 19:36 Dose: 17.2 mg Documented By: CASTILLuis Alfredo Sodium Chloride (0.9 % Sodium Chloride Flush 3 Ml Syringe) 3 ml IVFLUSH QSHIFT COUNTS INCLUDE 234 BEDS AT THE [facility] Last Admin: 12/16/21 09:09 Dose: Not Given Documented By: RADHA Non-Admin Reason: No Access Trazodone HCl (Trazodone Hcl 25 Mg Halftab) 12.5 mg PO Q24H COUNTS INCLUDE 234 BEDS AT THE [facility] Last Admin: 12/15/21 14:00 Dose: Not Given Documented By: NICKOLAS Non-Admin Reason: Patient Refused Labs CBC & Chem 7: 12/09/21 06:01 12/09/21 06:01 Assessment and Plan (1) Behavioral change: Status: Acute (2) Cavitary lesion of lung: Status: Acute (3) Intractable back pain: Status: Acute Plan 76M presented with back pain Behavioral problem, change More aggressive, refusing to take medications or follow commands Recurrent redirection and orientation Psychiatry input appreciated, vera Amador and p.kayla Louise intractable back pain due 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 pain control- appears fairly comfortable PT recommending str confusion Head CT negative for any masses possibly due to above vs progression of alzheimers dementia patient does not have capacity to make most medical decisions or leave AMA, psychiatry appreciated physical deconditioning PT recommended STR placement htn uncontrolled continue amlodipine to 10mg daily continue atenolol hypokalemia replaced full code dvt prophyalxis - lovenox reason for continued hospitalization: ongoing pain control, pending guardianship, safe dispo planning Quality Stroke Does the patient have a stroke diagnosis?: No VTE Prior VTE?: No VTE Risk Level:: Medical - moderate - high VTE Device Contraindication: Treatment Not Indicated VTE Drug Contraindication: N/A - Med Ordered
--- NOTE | 2021-12-16 11:51 | PC.NURSE ---
This nurse attemtped to administer 09:00 medications. Pt refused all medications this morning. This nurse entered room asking if pain was present and whether they wanted pain medication, pt claimed pain medicine does work, heart medicine doesn't work, I don't want any of it. notified, will continue to monitor.
[2021-12-16 19:49] VITALS: BP 164/83; PULSE 80; RESP 18; TEMP 36.6; O2SAT 100
[2021-12-16 23:26] VITALS: BP 140/98; PULSE 87; RESP 17; TEMP 36.6; O2SAT 93
[2021-12-17 03:50] VITALS: BP 167/58; PULSE 76; RESP 17; TEMP 36.4; O2SAT 96
[2021-12-17 04:00] VITALS: RESP 20
[2021-12-17 07:59] VITALS: BP 155/96; PULSE 90; RESP 18; TEMP 36.7; O2SAT 98
--- NOTE | 2021-12-17 10:57 | HO.PM.IMPN ---
Subjective Subjective Date of Service: 12/17/21 Interval History: Refusing medications gets aggravated quickly Report pain in his back Less Aggressive behavior to were the medical staff Review of Systems No fever, chills pain his lower back No chest pain, palpitation No shortness of breath or coughing No abdominal pain, nausea or vomiting No urinary symptoms No any rash or wounds Physical Exam Vital Signs: Vital Signs: Last Vital Signs Temp 98.0 F 12/17/21 07:59 Pulse 90 12/17/21 07:59 Resp 18 12/17/21 07:59 BP 155/96 H 12/17/21 07:59 Pulse Ox 98 12/17/21 07:59 O2 Del Method 12/17/21 07:59 O2 Flow Rate 2.5 12/08/21 00:04 BMI result Body Mass Index 27.3 Const: Other: Constitutional : Alert, not in distress Neck : Normal inspection Cardiovascular :no JVP, no lower extremity edema Respiratory : chest wall moving bilaterally,? no in distress Skin : Dry Objective Data Active Medications Acetaminophen (Acetaminophen 325 Mg Tablet) 650 mg PO Q6H PRN PRN Reason: Pain, Mild (Pain Scale 1-3) Last Admin: 12/11/21 19:36 Dose: 650 mg Documented By: THOMAS Amlodipine Besylate (Amlodipine Besylate 10 Mg Tablet) 10 mg PO DAILY [facility]; Protocol Last Admin: 12/17/21 07:33 Dose: Not Given Documented By: RADHA Non-Admin Reason: Patient Refused Atenolol (Atenolol 50 Mg Tablet) 50 mg PO DAILY [facility]; Protocol Last Admin: 12/17/21 07:33 Dose: Not Given Documented By: RADHA Non-Admin Reason: Patient Refused Atorvastatin Calcium (Atorvastatin Calcium 80 Mg Tablet) 80 mg PO BEDTIME [facility] Last Admin: 12/16/21 20:53 Dose: Not Given Documented By: NANCY Non-Admin Reason: Patient Refused Haloperidol Lactate (Haloperidol Lactate 5 Mg/Ml Vial) 1 mg IM Q8H PRN PRN Reason: anxiety/restlessness Hydromorphone HCl (Hydromorphone Hcl 2 Mg Tablet) 1 mg PO Q4H PRN PRN Reason: Pain, Severe (Pain Scale 7-10) Last Admin: 12/14/21 02:00 Dose: 1 mg Documented By: ROSA Pharmacy Consult (Consult Rx Perform Med Rec) 1 each MISCELLANE ONCE PRN PRN Reason: Consult order Quetiapine Fumarate (Quetiapine Fumarate 25 Mg Tablet) 25 mg PO BID [facility] Last Admin: 12/17/21 07:34 Dose: Not Given Documented By: RADHA Non-Admin Reason: Patient Refused Rivaroxaban (Rivaroxaban 20 Mg Tablet) 20 mg PO DAILY [facility] Last Admin: 12/17/21 07:34 Dose: Not Given Documented By: RADHA Non-Admin Reason: Patient Refused Senna (Sennosides 8.6 Mg Tablet) 17.2 mg PO BEDTIME PRN PRN Reason: Constipation Last Admin: 12/11/21 19:36 Dose: 17.2 mg Documented By: CASTILLuis Alfredo Sodium Chloride (0.9 % Sodium Chloride Flush 3 Ml Syringe) 3 ml IVFLUSH QSHIFT [facility] Last Admin: 12/17/21 07:29 Dose: Not Given Documented By: RADHA Non-Admin Reason: No Access Trazodone HCl (Trazodone Hcl 25 Mg Halftab) 12.5 mg PO Q24H [facility] Last Admin: 12/16/21 13:14 Dose: Not Given Documented By: RADHA Non-Admin Reason: Patient Refused Labs CBC & Chem 7: 12/09/21 06:01 12/09/21 06:01 Assessment and Plan (1) Behavioral change: Status: Acute (2) Intractable back pain: Status: Acute (3) Cavitary lesion of lung: Status: Acute Plan 76M presented with back pain Behavioral problem, change More aggressive, refusing to take medications or follow commands Recurrent redirection and orientation Psychiatry input appreciated, start Seroquel and p.r.n. 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 has lung cavitary lesion, ongoing work up, ideally would get biopsy of sacral lesion, patient refused patient lacks capacity to make this decision, question the need to do biopsy feels refusing it as it will need heavy sedation pain control- appears fairly comfortable, not asking for Dilaudid for 2 days now PT recommending str confusion Head CT negative for any masses possibly due to above vs progression of alzheimers dementia patient does not have capacity to make most medical decisions or leave AMA, psychiatry appreciated physical deconditioning PT recommended STR placement htn uncontrolled continue amlodipine to 10mg daily continue atenolol Patient refuses to take them most times hypokalemia replaced full code dvt prophyalxis - lovenox reason for continued hospitalization: ongoing pain control, pending guardianship, safe dispo planning Quality Stroke Does the patient have a stroke diagnosis?: No VTE Prior VTE?: No VTE Risk Level:: Medical - moderate - high VTE Device Contraindication: Treatment Not Indicated VTE Drug Contraindication: N/A - Med Ordered
[2021-12-17 12:00] VITALS: BP 180/101; PULSE 73; RESP 16; TEMP 36.6; O2SAT 94
--- NOTE | 2021-12-17 12:20 | PC.NURSE ---
Approx. 08:00 this morning, this nurse entered pts room offering pain medication, pt refused all medication including pain medication, pt's BP was elevated therefore this nurse urged for compliance of blood pressure medication, pt still refused. 11:30 this nurse was notified that pt's BP was 188/101, again urged pt that his blood pressure was dangerously high, pt refused claiming none of the medication helps!, I've been on this medication for weeks and it still doesn't work . Fifteen minutes later this nurse requested Aubrie Byrnes to attempt in persuading pt to take blood pressure medication, pt still refused. aware of all attempts and failures. Will continue to monitor.
[2021-12-17] MEDS: amLODIPine Besylate 10 MG TABLET PO (14:00)
[2021-12-17] MEDS: atenoloL 50 MG TABLET PO (14:00)
[2021-12-17 15:40] VITALS: BP 168/84; PULSE 66; RESP 18; TEMP 36.8; O2SAT 98
[2021-12-17 20:00] VITALS: BP 178/84; PULSE 73; RESP 18; TEMP 36.8; O2SAT 95
[2021-12-17] MEDS: QUEtiapine Fumarate 25 MG TABLET PO (20:25)
[2021-12-17] MEDS: Atorvastatin Calcium 80 MG TABLET PO (20:25)
[2021-12-18] VITALS (7 sets, daily range): BP systolic 134–173; BP diastolic 63–98; PULSE 73–89; RESP 16–20; TEMP 36.1–36.6; O2SAT 93–98
--- NOTE | 2021-12-18 10:18 | P.PNIM_ITS ---
Subjective Subjective Date of Service: 12/18/21 Interval History: Refusing medications gets aggravated quickly Aggressive behavior to were the medical staff Review of Systems No fever, chills pain his lower back No chest pain, palpitation No shortness of breath or coughing No abdominal pain, nausea or vomiting No urinary symptoms No any rash or wounds Physical Exam Vital Signs: Vital Signs: Last Vital Signs Temp 97.0 F 12/18/21 08:00 Pulse 83 12/18/21 08:00 Resp 17 12/18/21 08:00 BP 173/80 H 12/18/21 08:00 Pulse Ox 96 12/18/21 08:00 O2 Del Method 12/18/21 08:00 O2 Flow Rate 2.5 12/08/21 00:04 BMI result Body Mass Index 27.3 Const: Other: Constitutional : Alert, laying in his bed, not in distress Neck : Normal inspection Cardiovascular :no JVP, no lower extremity edema Respiratory : chest wall moving bilaterally,? no in distress Skin : Dry Objective Data Active Medications Acetaminophen (Acetaminophen 325 Mg Tablet) 650 mg PO Q6H PRN PRN Reason: Pain, Mild (Pain Scale 1-3) Last Admin: 12/11/21 19:36 Dose: 650 mg Documented By: THOMAS Amlodipine Besylate (Amlodipine Besylate 10 Mg Tablet) 10 mg PO DAILY [facility]; Protocol Last Admin: 12/18/21 09:00 Dose: Not Given Documented By: DARY Non-Admin Reason: Patient Refused Atenolol (Atenolol 50 Mg Tablet) 50 mg PO DAILY [facility]; Protocol Last Admin: 12/18/21 09:00 Dose: Not Given Documented By: DARY Non-Admin Reason: Patient Refused Atorvastatin Calcium (Atorvastatin Calcium 80 Mg Tablet) 80 mg PO BEDTIME [facility] Last Admin: 12/17/21 20:25 Dose: 80 mg Documented By: LIZ Haloperidol Lactate (Haloperidol Lactate 5 Mg/Ml Vial) 1 mg IM Q8H PRN PRN Reason: anxiety/restlessness Hydromorphone HCl (Hydromorphone Hcl 2 Mg Tablet) 1 mg PO Q4H PRN PRN Reason: Pain, Severe (Pain Scale 7-10) Last Admin: 12/14/21 02:00 Dose: 1 mg Documented By: ROSA Pharmacy Consult (Consult Rx Perform Med Rec) 1 each MISCELLANE ONCE PRN PRN Reason: Consult order Quetiapine Fumarate (Quetiapine Fumarate 25 Mg Tablet) 25 mg PO BID [facility] Last Admin: 12/18/21 08:58 Dose: Not Given Documented By: DARY Non-Admin Reason: Patient Refused Rivaroxaban (Rivaroxaban 20 Mg Tablet) 20 mg PO DAILY [facility] Last Admin: 12/18/21 09:01 Dose: Not Given Documented By: DARY Non-Admin Reason: Patient Refused Senna (Sennosides 8.6 Mg Tablet) 17.2 mg PO BEDTIME PRN PRN Reason: Constipation Last Admin: 12/11/21 19:36 Dose: 17.2 mg Documented By: CASTILLuis Alfredo Sodium Chloride (0.9 % Sodium Chloride Flush 3 Ml Syringe) 3 ml IVFLUSH QSHIFT [facility] Last Admin: 12/18/21 08:54 Dose: Not Given Documented By: DARY Non-Admin Reason: No Access Trazodone HCl (Trazodone Hcl 25 Mg Halftab) 12.5 mg PO Q24H [facility] Last Admin: 12/17/21 12:57 Dose: Not Given Documented By: RADHA Non-Admin Reason: Patient Refused Labs CBC & Chem 7: 12/09/21 06:01 12/09/21 06:01 Assessment and Plan (1) Behavioral change: Status: Acute (2) Cavitary lesion of lung: Status: Acute Plan 76M presented with back pain Behavioral problem, change More aggressive, refusing to take medications or follow commands Recurrent redirection and orientation Psychiatry input appreciated, start Seroquel and p.r.n. 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, ongoing work up, ideally would get biopsy of sacral lesion, patient refused patient lacks capacity to make this decision, question the need to do biopsy feels refusing it as it will need heavy sedation pain control- appears fairly comfortable, not asking for Dilaudid for 2 days now PT recommending str confusion Head CT negative for any masses possibly due to above vs progression of alzheimers dementia patient does not have capacity to make most medical decisions or leave AMA, psychiatry appreciated physical deconditioning PT recommended STR placement htn uncontrolled continue amlodipine to 10mg daily continue atenolol Patient refuses to take them most times hypokalemia replaced full code dvt prophyalxis Xarelto, refusing meds reason for continued hospitalization: ongoing pain control, pending guardianship, safe dispo planning Quality Stroke Does the patient have a stroke diagnosis?: No VTE Prior VTE?: No VTE Risk Level:: Medical - moderate - high VTE Device Contraindication: Treatment Not Indicated VTE Drug Contraindication: N/A - Med Ordered
--- NOTE | 2021-12-18 13:38 | MHC.CLN ---
NUTRITION PATIENT APPEARS TO HAVE POOR INTAKE AT MEALS. DIET=REGULAR. ADDING ENSURE TID TO PROVIDE ADDITIONAL 1050 KCALS, 60 G PROTEIN.
--- NOTE | 2021-12-18 16:22 | MHC.CM.PN ---
NURSE PRELOAD SUPERVISOR NOTE ELECTRICAL MEDICAL RECORD REVIEWED ALONG WITH CASE DISCUSSED WITH [facility]OUNDS. PATIENT WILL NEED GUARDIANSHIP AND GUARDIAN TO PLACE AND [facility] ORDER FOR EMDIATIONS , PAPERWORK INIATED ON THRUSDAY TO THE COURTS AND WILL LOMNG TERM CARE CURRENTLY HAS PT/OT NEEDS HAS BEEN EVALUATED BY W[facility] nd does not have capacity to make his own medical decisions case managemnt to continue to follwo for placement
[2021-12-19 03:03] VITALS: BP 142/65; PULSE 79; RESP 16; TEMP 36.4; O2SAT 98
[2021-12-19 03:07] VITALS: BP 120/69; PULSE 87; RESP 18; TEMP 36.4; O2SAT 96
[2021-12-19 07:52] VITALS: BP 171/97; PULSE 86; RESP 18; TEMP 36.3; O2SAT 96
--- NOTE | 2021-12-19 10:07 | HO.PM.IMPN ---
Subjective Subjective Date of Service: 12/19/21 Interval History: Refusing medications gets aggravated quickly Aggressive behavior to were the medical staff Review of Systems No fever, chills pain his lower back No chest pain, palpitation No shortness of breath or coughing No abdominal pain, nausea or vomiting No urinary symptoms No any rash or wounds Physical Exam Vital Signs: Vital Signs: Last Vital Signs Temp 97.4 F 12/19/21 07:52 Pulse 86 12/19/21 07:52 Resp 18 12/19/21 07:52 BP 171/97 H 12/19/21 07:52 Pulse Ox 96 12/19/21 07:52 O2 Del Method 12/19/21 07:52 O2 Flow Rate 5 12/19/21 03:07 BMI result Body Mass Index 27.3 Const: Other: Constitutional : Alert, laying in his bed, not in distress Neck : Normal inspection Cardiovascular :no JVP, no lower extremity edema Respiratory : chest wall moving bilaterally,? no in distress Skin : Dry Objective Data Active Medications Acetaminophen (Acetaminophen 325 Mg Tablet) 650 mg PO Q6H PRN PRN Reason: Pain, Mild (Pain Scale 1-3) Last Admin: 12/11/21 19:36 Dose: 650 mg Documented By: CASTILLuis Alfredo Amlodipine Besylate (Amlodipine Besylate 10 Mg Tablet) 10 mg PO DAILY [facility]; Protocol Last Admin: 12/19/21 08:40 Dose: 10 mg Documented By: SYDNIE Atenolol (Atenolol 50 Mg Tablet) 50 mg PO DAILY [facility]; Protocol Last Admin: 12/19/21 08:41 Dose: 50 mg Documented By: SYDNIE Atorvastatin Calcium (Atorvastatin Calcium 80 Mg Tablet) 80 mg PO BEDTIME [facility] Last Admin: 12/18/21 21:02 Dose: Not Given Documented By: ODRISM Non-Admin Reason: Patient Refused Haloperidol Lactate (Haloperidol Lactate 5 Mg/Ml Vial) 1 mg IM Q8H PRN PRN Reason: anxiety/restlessness Pharmacy Consult (Consult Rx Perform Med Rec) 1 each MISCELLANE ONCE PRN PRN Reason: Consult order Quetiapine Fumarate (Quetiapine Fumarate 25 Mg Tablet) 25 mg PO BID [facility] Last Admin: 12/19/21 08:41 Dose: 25 mg Documented By: DABKwadwo Rivaroxaban (Rivaroxaban 20 Mg Tablet) 20 mg PO DAILY [facility] Last Admin: 12/19/21 08:40 Dose: 20 mg Documented By: SYDNIE Senna (Sennosides 8.6 Mg Tablet) 17.2 mg PO BEDTIME PRN PRN Reason: Constipation Last Admin: 12/11/21 19:36 Dose: 17.2 mg Documented By: CASTILLuis Alfredo Sodium Chloride (0.9 % Sodium Chloride Flush 3 Ml Syringe) 3 ml IVFLUSH QSHIFT [facility] Last Admin: 12/19/21 07:03 Dose: Not Given Documented By: SYDNIE Non-Admin Reason: No Access Trazodone HCl (Trazodone Hcl 25 Mg Halftab) 12.5 mg PO Q24H [facility] Last Admin: 12/18/21 12:36 Dose: Not Given Documented By: DARY Non-Admin Reason: Patient Refused Labs CBC & Chem 7: 12/09/21 06:01 12/09/21 06:01 Assessment and Plan (1) Behavioral change: Status: Acute Plan 76M presented with back pain Behavioral problem, change More aggressive, refusing to take medications or follow commands Recurrent redirection and orientation Psychiatry input appreciated, start Seroquel and p.r.n. 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, ongoing work up, ideally would get biopsy of sacral lesion, patient refused patient lacks capacity to make this decision, question the need to do biopsy feels refusing it as it will need heavy sedation pain control- appears fairly comfortable, not asking for Dilaudid for 2 days now PT recommending str confusion Head CT negative for any masses possibly due to above vs progression of alzheimers dementia patient does not have capacity to make most medical decisions or leave AMA, psychiatry appreciated physical deconditioning PT recommended STR placement htn uncontrolled continue amlodipine to 10mg daily continue atenolol higher dose of 50 mg Patient refuses to take them most times but we tried to give them anyway hypokalemia replaced full code dvt prophyalxis Xarelto, refusing meds reason for continued hospitalization: ongoing pain control, pending guardianship, safe dispo planning Quality Stroke Does the patient have a stroke diagnosis?: No VTE Prior VTE?: No VTE Risk Level:: Medical - moderate - high VTE Device Contraindication: Treatment Not Indicated VTE Drug Contraindication: N/A - Med Ordered
--- NOTE | 2021-12-19 11:23 | MHC.CM.PN ---
Call placed to [facility] to inquire about status of guardianship process, awaiting return phone call.
[2021-12-19 15:19] VITALS: BP 180/102; PULSE 91; RESP 18; TEMP 36.6; O2SAT 98
[2021-12-19 19:36] VITALS: BP 163/89; PULSE 75; RESP 18; TEMP 37.1; O2SAT 96
[2021-12-19 23:37] VITALS: BP 139/75; PULSE 66; RESP 18; TEMP 36.6; O2SAT 94
[2021-12-20 03:35] VITALS: BP 156/76; PULSE 64; RESP 18; TEMP 36.8; O2SAT 92
[2021-12-20 07:50] VITALS: BP 144/79; PULSE 65; RESP 18; TEMP 36.6; O2SAT 94
[2021-12-20 11:28] VITALS: BP 134/76; PULSE 79; RESP 18; TEMP 36.2; O2SAT 94
--- NOTE | 2021-12-20 14:38 | P.PNIM_ITS ---
Subjective Subjective Date of Service: 12/20/21 Interval History: cc: hip pain interval history:no complaints Cardiovascular Cardiovascular: Reports no additional cardiovascular complaints Gastrointestinal Gastrointestinal: Reports no additional gastrointestinal complaints Physical Exam Vital Signs: Vital Signs: Last Vital Signs Temp 97.1 F 12/20/21 11:28 Pulse 79 12/20/21 11:28 Resp 18 12/20/21 11:28 BP 134/76 12/20/21 11:28 Pulse Ox 94 12/20/21 11:28 O2 Del Method 12/20/21 11:28 O2 Flow Rate 5 12/19/21 03:07 BMI result Body Mass Index 27.3 Const: Other: Constitutional : Alert, laying in his bed, not in distress Neck : Normal inspection Cardiovascular :no JVP, no lower extremity edema Respiratory : chest wall moving bilaterally,? no in distress Skin : Dry Objective Data Active Medications Acetaminophen (Acetaminophen 325 Mg Tablet) 650 mg PO Q6H PRN PRN Reason: Pain, Mild (Pain Scale 1-3) Last Admin: 12/11/21 19:36 Dose: 650 mg Amlodipine Besylate (Amlodipine Besylate 10 Mg Tablet) 10 mg PO DAILY [facility]; Protocol Last Admin: 12/20/21 10:50 Dose: Not Given Documented By: COTEMA Non-Admin Reason: Patient Refused Atenolol (Atenolol 50 Mg Tablet) 50 mg PO DAILY [facility]; Protocol Last Admin: 12/20/21 10:50 Dose: Not Given Documented By: COTEMA Non-Admin Reason: Patient Refused Atorvastatin Calcium (Atorvastatin Calcium 80 Mg Tablet) 80 mg PO BEDTIME [facility] Last Admin: 12/19/21 19:53 Dose: Not Given Documented By: RICHIILLuis Alfredo Non-Admin Reason: Patient Refused Haloperidol Lactate (Haloperidol Lactate 5 Mg/Ml Vial) 1 mg IM Q8H PRN PRN Reason: anxiety/restlessness Pharmacy Consult (Consult Rx Perform Med Rec) 1 each MISCELLANE ONCE PRN PRN Reason: Consult order Quetiapine Fumarate (Quetiapine Fumarate 25 Mg Tablet) 25 mg PO BID [facility] Last Admin: 12/20/21 10:50 Dose: Not Given Documented By: COTEMA Non-Admin Reason: Patient Refused Rivaroxaban (Rivaroxaban 20 Mg Tablet) 20 mg PO DAILY [facility] Last Admin: 12/20/21 10:50 Dose: Not Given Documented By: COTEMA Non-Admin Reason: Patient Refused Senna (Sennosides 8.6 Mg Tablet) 17.2 mg PO BEDTIME PRN PRN Reason: Constipation Last Admin: 12/11/21 19:36 Dose: 17.2 mg Documented By: CASTILLuis Alfredo Sodium Chloride (0.9 % Sodium Chloride Flush 3 Ml Syringe) 3 ml IVFLUSH QSHIFT [facility] Last Admin: 12/20/21 14:22 Dose: Not Given Documented By: COTEMA Non-Admin Reason: No Access Trazodone HCl (Trazodone Hcl 25 Mg Halftab) 12.5 mg PO Q24H [facility] Last Admin: 12/20/21 12:42 Dose: Not Given Documented By: COTEMA Non-Admin Reason: Patient Refused Labs CBC & Chem 7: 12/09/21 06:01 12/09/21 06:01 Assessment and Plan (1) Behavioral change: Status: Acute Plan 76M presented with back pain Behavioral problem, change More aggressive, refusing to take medications or follow commands Recurrent redirection and orientation Psychiatry input appreciated, start Seroquel and p.r.n. 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, ongoing work up, ideally would get biopsy of sacral lesion, patient refused patient lacks capacity to make this decision, question the need to do biopsy feels refusing it as it will need heavy sedation pain control- appears fairly comfortable, not asking for Dilaudid for 2 days now PT recommending str confusion Head CT negative for any masses possibly due to above vs progression of alzheimers dementia patient does not have capacity to make most medical decisions or leave AMA, psychiatry appreciated physical deconditioning PT recommended STR placement htn uncontrolled continue amlodipine to 10mg daily continue atenolol higher dose of 50 mg Patient refuses to take them most times but we tried to give them anyway hypokalemia replaced full code dvt prophyalxis Xarelto, refusing meds reason for continued hospitalization: ongoing pain control, pending guardian ship, safe dispo planning Quality Stroke Does the patient have a stroke diagnosis?: No VTE Prior VTE?: No VTE Risk Level:: Medical - moderate - high VTE Device Contraindication: Treatment Not Indicated VTE Drug Contraindication: N/A - Med Ordered
[2021-12-20 16:00] VITALS: BP 129/79; TEMP 36.5
[2021-12-21] VITALS: BP 130/62; PULSE 88; RESP 17; TEMP 36.6; O2SAT 95
[2021-12-21] MEDS: Acetaminophen 325 MG TABLET 650 MG PO (07:35)
[2021-12-21] MEDS: amLODIPine Besylate 10 MG TABLET PO (07:36)
[2021-12-21] MEDS: Rivaroxaban 20 MG TABLET PO (07:36)
[2021-12-21] MEDS: QUEtiapine Fumarate 25 MG TABLET PO (07:36)
[2021-12-21] MEDS: atenoloL 50 MG TABLET PO (07:36)
[2021-12-21 07:57] VITALS: BP 146/90; PULSE 85; RESP 18; TEMP 36.8; O2SAT 96
--- NOTE | 2021-12-21 11:16 | HO.PM.IMPN ---
Subjective Subjective Date of Service: 12/21/21 Interval History: cc: back/hip pain interval history:resolved Cardiovascular Cardiovascular: Reports no additional cardiovascular complaints Respiratory Respiratory: Reports no additional respiratory complaints Physical Exam Vital Signs: Vital Signs: Last Vital Signs Temp 98.2 F 12/21/21 07:57 Pulse 85 12/21/21 07:57 Resp 18 12/21/21 07:57 BP 146/90 H 12/21/21 07:57 Pulse Ox 96 12/21/21 07:57 O2 Del Method 12/21/21 07:57 O2 Flow Rate 5 12/19/21 03:07 BMI result Body Mass Index 27.3 Const: Other: Constitutional : Alert, laying in his bed, not in distress Neck : Normal inspection Cardiovascular :no JVP, no lower extremity edema Respiratory : chest wall moving bilaterally,? no in distress Skin : Dry Objective Data Active Medications Acetaminophen (Acetaminophen 325 Mg Tablet) 650 mg PO Q6H PRN PRN Reason: Pain, Mild (Pain Scale 1-3) Last Admin: 12/21/21 07:35 Dose: 650 mg Documented By: JACOB Amlodipine Besylate (Amlodipine Besylate 10 Mg Tablet) 10 mg PO DAILY [facility]; Protocol Last Admin: 12/21/21 07:36 Dose: 10 mg Documented By: JACOB Atenolol (Atenolol 50 Mg Tablet) 50 mg PO DAILY [facility]; Protocol Last Admin: 12/21/21 07:36 Dose: 50 mg Documented By: JACOB Atorvastatin Calcium (Atorvastatin Calcium 80 Mg Tablet) 80 mg PO BEDTIME [facility] Last Admin: 12/20/21 22:49 Dose: Not Given Documented By: NANCY Non-Admin Reason: Patient Refused Haloperidol Lactate (Haloperidol Lactate 5 Mg/Ml Vial) 1 mg IM Q8H PRN PRN Reason: anxiety/restlessness Pharmacy Consult (Consult Rx Perform Med Rec) 1 each MISCELLANE ONCE PRN PRN Reason: Consult order Quetiapine Fumarate (Quetiapine Fumarate 25 Mg Tablet) 25 mg PO BID [facility] Last Admin: 12/21/21 07:36 Dose: 25 mg Documented By: JACOB Rivaroxaban (Rivaroxaban 20 Mg Tablet) 20 mg PO DAILY [facility] Last Admin: 12/21/21 07:36 Dose: 20 mg Documented By: JACOB Senna (Sennosides 8.6 Mg Tablet) 17.2 mg PO BEDTIME PRN PRN Reason: Constipation Last Admin: 12/11/21 19:36 Dose: 17.2 mg Documented By: CASTILLuis Alfredo Sodium Chloride (0.9 % Sodium Chloride Flush 3 Ml Syringe) 3 ml IVFLUSH QSHIFT [facility] Last Admin: 12/21/21 07:37 Dose: Not Given Documented By: JACOB Non-Admin Reason: No Access Trazodone HCl (Trazodone Hcl 25 Mg Halftab) 12.5 mg PO Q24H [facility] Last Admin: 12/20/21 12:42 Dose: Not Given Documented By: COTEMA Non-Admin Reason: Patient Refused Labs CBC & Chem 7: 12/09/21 06:01 12/09/21 06:01 Assessment and Plan (1) Behavioral change: Status: Acute Plan 76M presented with back pain Behavioral problem, change More aggressive, refusing to take medications or follow commands Recurrent redirection and orientation Psychiatry input appreciated, start Seroquel and p.r.n. 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, ongoing work up, ideally would get biopsy of sacral lesion, patient refused patient lacks capacity to make this decision, question the need to do biopsy feels refusing it as it will need heavy sedation pain control- appears fairly comfortable, not asking for Dilaudid anymore PT recommending str confusion Head CT negative for any masses possibly due to above vs progression of alzheimers dementia patient does not have capacity to make most medical decisions or leave AMA, psychiatry appreciated physical deconditioning PT recommended STR placement htn uncontrolled continue amlodipine to 10mg daily continue atenolol higher dose of 50 mg Patient refuses to take them most times but we tried to give them anyway hypokalemia replaced full code dvt prophyalxis Xarelto, refusing meds reason for continued hospitalization: ongoing pain control, pending guardianship, safe dispo planning Quality Stroke Does the patient have a stroke diagnosis?: No VTE Prior VTE?: No VTE Risk Level:: Medical - moderate - high VTE Device Contraindication: Treatment Not Indicated VTE Drug Contraindication: N/A - Med Ordered
[2021-12-21 11:37] VITALS: BP 137/80; PULSE 83; RESP 18; TEMP 36.6; O2SAT 95
--- NOTE | 2021-12-21 14:33 | MHC.CM.PN ---
PETITION FOR GUARDIANSHIP AND CONSERVATORSHIP FILED ON 12/20/2021. COURT APPOINTED YUMIKO ANG ESQ. TEMPORARY HEARING SCHEDULED FOR JANUARY 25 @ 1130. THIS IS THE EARLIEST DATE AVAILABLE. ONCE YUMIKO MEETS WITH CLIENT,AND AGREES TO TEMPORARY GUARDIAN/CONSERVATOR, IT IS POSSIBLE THAT AN EARLIER COURT DATE CAN BE ARRANGED WITH HIS ASSISTANCE.
[2021-12-21 15:28] VITALS: BP 159/84; PULSE 92; RESP 18; TEMP 36.6; O2SAT 91
[2021-12-21 19:24] VITALS: BP 171/95; PULSE 90; RESP 20; TEMP 36.4; O2SAT 94
[2021-12-22] VITALS: BP 170/91; PULSE 80; RESP 18; TEMP 36.1; O2SAT 96
[2021-12-22 03:26] VITALS: BP 175/124; PULSE 91; RESP 18; TEMP 36.4; O2SAT 97
[2021-12-22 08:00] VITALS: BP 177/94; PULSE 91; RESP 18; TEMP 36.6; O2SAT 96
--- NOTE | 2021-12-22 09:35 | P.PNIM_ITS ---
Subjective Subjective Date of Service: 12/22/21 Interval History: cc: back/hip pain interval history:resolved Cardiovascular Cardiovascular: Reports no additional cardiovascular complaints Respiratory Respiratory: Reports no additional respiratory complaints Physical Exam Vital Signs: Vital Signs: Last Vital Signs Temp 97.8 F 12/22/21 08:00 Pulse 91 12/22/21 08:00 Resp 18 12/22/21 08:00 BP 177/94 H 12/22/21 08:00 Pulse Ox 96 12/22/21 08:00 O2 Del Method 12/22/21 08:00 O2 Flow Rate 5 12/19/21 03:07 BMI result Body Mass Index 27.3 Const: Other: Constitutional : Alert, laying in his bed, not in distress Neck : Normal inspection Cardiovascular :no JVP, no lower extremity edema Respiratory : chest wall moving bilaterally,? no in distress Skin : Dry Objective Data Active Medications Acetaminophen (Acetaminophen 325 Mg Tablet) 650 mg PO Q6H PRN PRN Reason: Pain, Mild (Pain Scale 1-3) Last Admin: 12/21/21 07:35 Dose: 650 mg Documented By: JACOB Amlodipine Besylate (Amlodipine Besylate 10 Mg Tablet) 10 mg PO DAILY [facility]; Protocol Last Admin: 12/22/21 08:36 Dose: Not Given Documented By: RADHA Non-Admin Reason: Patient Refused Atenolol (Atenolol 50 Mg Tablet) 50 mg PO DAILY [facility]; Protocol Last Admin: 12/22/21 08:36 Dose: Not Given Documented By: RADHA Non-Admin Reason: Patient Refused Atorvastatin Calcium (Atorvastatin Calcium 80 Mg Tablet) 80 mg PO BEDTIME [facility] Last Admin: 12/21/21 19:48 Dose: Not Given Documented By: NANCY Non-Admin Reason: Patient Refused Haloperidol Lactate (Haloperidol Lactate 5 Mg/Ml Vial) 1 mg IM Q8H PRN PRN Reason: anxiety/restlessness Pharmacy Consult (Consult Rx Perform Med Rec) 1 each MISCELLANE ONCE PRN PRN Reason: Consult order Quetiapine Fumarate (Quetiapine Fumarate 25 Mg Tablet) 25 mg PO BID [facility] Last Admin: 12/22/21 08:36 Dose: Not Given Documented By: RADHA Non-Admin Reason: Patient Refused Rivaroxaban (Rivaroxaban 20 Mg Tablet) 20 mg PO DAILY [facility] Last Admin: 12/22/21 08:36 Dose: Not Given Documented By: RADHA Non-Admin Reason: Patient Refused Senna (Sennosides 8.6 Mg Tablet) 17.2 mg PO BEDTIME PRN PRN Reason: Constipation Last Admin: 12/11/21 19:36 Dose: 17.2 mg Documented By: THOMAS Sodium Chloride (0.9 % Sodium Chloride Flush 3 Ml Syringe) 3 ml IVFLUSH QSHIFT [facility] Last Admin: 12/22/21 08:24 Dose: Not Given Documented By: RADHA Non-Admin Reason: No Access Trazodone HCl (Trazodone Hcl 25 Mg Halftab) 12.5 mg PO Q24H [facility] Last Admin: 12/21/21 14:05 Dose: Not Given Documented By: JACOB Non-Admin Reason: Patient Refused Labs CBC & Chem 7: 12/09/21 06:01 12/09/21 06:01 Assessment and Plan (1) Behavioral change: Status: Acute Plan 76M presented with back pain Behavioral problem, change More aggressive, refusing to take medications or follow commands Recurrent redirection and orientation Psychiatry input appreciated, started Seroquel and p.r.n. 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, ongoing work up, ideally would get biopsy of sacral lesion, patient refused patient lacks capacity to make this decision, question the need to do biopsy feels refusing it as it will need heavy sedation pain control- appears fairly comfortable, not asking for Dilaudid anymore PT recommending str confusion Head CT negative for any masses possibly due to above vs progression of alzheimers dementia patient does not have capacity to make most medical decisions or leave AMA, psychiatry appreciated physical deconditioning PT recommended STR placement htn uncontrolled continue amlodipine to 10mg daily continue atenolol higher dose of 50 mg Patient refuses to take them most times but we tried to give them anyway hypokalemia replaced full code dvt prophyalxis Xarelto, refusing meds reason for continued hospitalization: ongoing pain control, pending binh horowitz, safe dispo planning Quality Stroke Does the patient have a stroke diagnosis?: No VTE Prior VTE?: No VTE Risk Level:: Medical - moderate - high VTE Device Contraindication: Treatment Not Indicated VTE Drug Contraindication: N/A - Med Ordered
[2021-12-22 11:50] VITALS: BP 135/89; PULSE 95; RESP 18; TEMP 36.8; O2SAT 97
[2021-12-22 15:50] VITALS: BP 164/71; PULSE 94; RESP 20; TEMP 37.1; O2SAT 98
[2021-12-22 19:08] VITALS: BP 159/64; PULSE 96; RESP 20; TEMP 37; O2SAT 97
[2021-12-23] VITALS: BP 150/102; PULSE 93; RESP 18; TEMP 36.4; O2SAT 94
[2021-12-23 03:53] VITALS: BP 158/96; PULSE 98; RESP 18; TEMP 36.6; O2SAT 94
[2021-12-23 08:00] VITALS: BP 173/87; PULSE 87; RESP 17; TEMP 36.4; O2SAT 92
--- NOTE | 2021-12-23 09:13 | PC.NURSE ---
Pt refused all morning medications. This RN attempted to get pt to take blood pressure medications and patient became agitated refusing to take meds. Dr Amador made aware. Will continue to monitor.
--- NOTE | 2021-12-23 09:38 | HO.PM.IMPN ---
Subjective Subjective Date of Service: 12/23/21 Interval History: cc: back/hip pain interval history:resolved Cardiovascular Cardiovascular: Reports no additional cardiovascular complaints Respiratory Respiratory: Reports no additional respiratory complaints Physical Exam Vital Signs: Vital Signs: Last Vital Signs Temp 97.5 F 12/23/21 08:00 Pulse 87 12/23/21 08:00 Resp 17 12/23/21 08:00 BP 173/87 H 12/23/21 08:00 Pulse Ox 92 12/23/21 08:00 O2 Del Method 12/23/21 08:00 O2 Flow Rate 5 12/19/21 03:07 BMI result Body Mass Index 27.3 Const: Other: Constitutional : Alert, laying in his bed, not in distress Neck : Normal inspection Cardiovascular :no JVP, no lower extremity edema Respiratory : chest wall moving bilaterally,? no in distress Skin : Dry Objective Data Active Medications Acetaminophen (Acetaminophen 325 Mg Tablet) 650 mg PO Q6H PRN PRN Reason: Pain, Mild (Pain Scale 1-3) Last Admin: 12/21/21 07:35 Dose: 650 mg Documented By: JACOB Amlodipine Besylate (Amlodipine Besylate 10 Mg Tablet) 10 mg PO DAILY [facility]; Protocol Last Admin: 12/23/21 09:12 Dose: Not Given Documented By: SEBASTIAN Non-Admin Reason: Patient Refused Atenolol (Atenolol 50 Mg Tablet) 50 mg PO DAILY [facility]; Protocol Last Admin: 12/23/21 09:12 Dose: Not Given Documented By: SEBASTIAN Non-Admin Reason: Patient Refused Atorvastatin Calcium (Atorvastatin Calcium 80 Mg Tablet) 80 mg PO BEDTIME [facility] Last Admin: 12/22/21 20:09 Dose: Not Given Documented By: LIZ Non-Admin Reason: Patient Refused Haloperidol Lactate (Haloperidol Lactate 5 Mg/Ml Vial) 1 mg IM Q8H PRN PRN Reason: anxiety/restlessness Pharmacy Consult (Consult Rx Perform Med Rec) 1 each MISCELLANE ONCE PRN PRN Reason: Consult order Quetiapine Fumarate (Quetiapine Fumarate 25 Mg Tablet) 25 mg PO BID [facility] [place] Last Admin: 12/23/21 09:12 Dose: Not Given Documented By: SEBASTIAN Non-Admin Reason: Patient Refused Rivaroxaban (Rivaroxaban 20 Mg Tablet) 20 mg PO DAILY [facility] [place] Last Admin: 12/23/21 09:12 Dose: Not Given Documented By: SEBASTIAN Non-Admin Reason: Patient Refused Senna (Sennosides 8.6 Mg Tablet) 17.2 mg PO BEDTIME PRN PRN Reason: Constipation Last Admin: 12/11/21 19:36 Dose: 17.2 mg Documented By: THOMAS Sodium Chloride (0.9 % Sodium Chloride Flush 3 Ml Syringe) 3 ml IVFLUSH QSHIFT [facility] [place] Last Admin: 12/23/21 09:09 Dose: Not Given Documented By: SEBASTIAN Non-Admin Reason: No Access Trazodone HCl (Trazodone Hcl 25 Mg Halftab) 12.5 mg PO Q24H [facility] Last Admin: 12/22/21 13:12 Dose: Not Given Documented By: RADHA Non-Admin Reason: Patient Refused Labs CBC & Chem 7: 12/09/21 06:01 12/09/21 06:01 Assessment and Plan (1) Behavioral change: Status: Acute Plan 76M presented with back pain Behavioral problem, change More aggressive, refusing to take medications or follow commands Recurrent redirection and orientation Psychiatry input appreciated, started Seroquel and p.r.n. 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, ongoing work up, ideally would get biopsy of sacral lesion, patient refused patient lacks capacity to make this decision, question the need to do biopsy feels refusing it as it will need heavy sedation pain control- appears fairly comfortable, not asking for Dilaudid anymore PT recommending str confusion Head CT negative for any masses possibly due to above vs progression of alzheimers dementia patient does not have capacity to make most medical decisions or leave AMA, psychiatry appreciated physical deconditioning PT recommended STR placement htn uncontrolled continue amlodipine to 10mg daily continue atenolol higher dose of 50 mg Patient refuses to take them most times but we tried to give them anyway hypokalemia replaced full code dvt prophyalxis Xarelto, refusing meds reason for continued hospitalization: ongoing pain control, pending guardianship, safe dispo planning Quality Stroke Does the patient have a stroke diagnosis?: No VTE Prior VTE?: No VTE Risk Level:: Medical - moderate - high VTE Device Contraindication: Treatment Not Indicated VTE Drug Contraindication: N/A - Med Ordered
[2021-12-23 12:00] VITALS: BP 136/82; PULSE 74; RESP 17; TEMP 36.3; O2SAT 97
[2021-12-23 15:41] VITALS: BP 140/71; PULSE 77; RESP 20; TEMP 36.8; O2SAT 95
--- NOTE | 2021-12-23 16:16 | MHC.CM.PN ---
CM MET W/PT BRIEFLY WHEN HIS ATTY CAME TO SPEAK W/HIM REGARDING UPCOMING GUARDIANSHIP HEARING. CM ESCORTED ATTY TO PTS ROOM WHERE HE MET W/PT IN PRIVATE.
[2021-12-24] VITALS (7 sets, daily range): BP systolic 135–163; BP diastolic 62–96; PULSE 92–106; RESP 17–19; TEMP 36–36.5; O2SAT 92–98
--- NOTE | 2021-12-24 07:24 | P.PNIM_ITS ---
Subjective Subjective Date of Service: 12/24/21 Interval History: cc: back/hip pain interval history:resolved Cardiovascular Cardiovascular: Reports no additional cardiovascular complaints Respiratory Respiratory: Reports no additional respiratory complaints Physical Exam Vital Signs: Vital Signs: Last Vital Signs Temp 97.5 F 12/24/21 03:40 Pulse 104 H 12/24/21 03:40 Resp 18 12/24/21 03:40 BP 163/83 H 12/24/21 03:40 Pulse Ox 98 12/24/21 03:40 O2 Del Method 12/24/21 03:40 O2 Flow Rate 5 12/19/21 03:07 BMI result Body Mass Index 27.3 Const: Other: Constitutional : Alert, laying in his bed, not in distress Neck : Normal inspection Cardiovascular :no JVP, no lower extremity edema Respiratory : chest wall moving bilaterally,? no in distress Skin : Dry Objective Data Active Medications Acetaminophen (Acetaminophen 325 Mg Tablet) 650 mg PO Q6H PRN PRN Reason: Pain, Mild (Pain Scale 1-3) Last Admin: 12/21/21 07:35 Dose: 650 mg Documented By: JACOB Amlodipine Besylate (Amlodipine Besylate 10 Mg Tablet) 10 mg PO DAILY [facility]; Protocol Last Admin: 12/23/21 09:12 Dose: Not Given Documented By: SEBASTIAN Non-Admin Reason: Patient Refused Atenolol (Atenolol 50 Mg Tablet) 50 mg PO DAILY [facility]; Protocol Last Admin: 12/23/21 09:12 Dose: Not Given Documented By: SEBASTIAN Non-Admin Reason: Patient Refused Atorvastatin Calcium (Atorvastatin Calcium 80 Mg Tablet) 80 mg PO BEDTIME [facility] Last Admin: 12/23/21 20:36 Dose: Not Given Documented By: LIZ Non-Admin Reason: Patient Refused Haloperidol Lactate (Haloperidol Lactate 5 Mg/Ml Vial) 1 mg IM Q8H PRN PRN Reason: anxiety/restlessness Pharmacy Consult (Consult Rx Perform Med Rec) 1 each MISCELLANE ONCE PRN PRN Reason: Consult order Quetiapine Fumarate (Quetiapine Fumarate 25 Mg Tablet) 25 mg PO BID [facility] Last Admin: 12/23/21 20:36 Dose: Not Given Documented By: LIZ Non-Admin Reason: Patient Refused Rivaroxaban (Rivaroxaban 20 Mg Tablet) 20 mg PO DAILY [facility] Last Admin: 12/23/21 09:12 Dose: Not Given Documented By: SEBASTIAN Non-Admin Reason: Patient Refused Senna (Sennosides 8.6 Mg Tablet) 17.2 mg PO BEDTIME PRN PRN Reason: Constipation Last Admin: 12/11/21 19:36 Dose: 17.2 mg Documented By: THOMAS Sodium Chloride (0.9 % Sodium Chloride Flush 3 Ml Syringe) 3 ml IVFLUSH QSHIFT [facility] Last Admin: 12/24/21 00:11 Dose: Not Given Documented By: LIZ Non-Admin Reason: No Access Trazodone HCl (Trazodone Hcl 25 Mg Halftab) 12.5 mg PO Q24H [facility] Last Admin: 12/23/21 13:03 Dose: Not Given Documented By: SEBASTIAN Non-Admin Reason: Patient Refused Labs CBC & Chem 7: 12/09/21 06:01 12/09/21 06:01 Assessment and Plan (1) Behavioral change: Status: Acute Plan 76M presented with back pain Behavioral problem, change More aggressive, refusing to take medications or follow commands Recurrent redirection and orientation Psychiatry input appreciated, started Seroquel and p.r.n. 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, ongoing work up, ideally would get biopsy of sacral lesion, patient refused patient lacks capacity to make this decision, question the need to do biopsy feels refusing it as it will need heavy sedation pain control- appears fairly comfortable, not asking for Dilaudid anymore PT recommending str confusion Head CT negative for any masses possibly due to above vs progression of alzheimers dementia patient does not have capacity to make most medical decisions or leave AMA, psychiatry appreciated physical deconditioning PT recommended STR placement htn uncontrolled continue amlodipine to 10mg daily continue atenolol higher dose of 50 mg Patient refuses to take them most times but we tried to give them anyway hypokalemia replaced full code dvt prophyalxis Xarelto, refusing meds reason for continued hospitalization: ongoing pain control, pending binh horowitz, safe dispo planning Quality Stroke Does the patient have a stroke diagnosis?: No VTE Prior VTE?: No VTE Risk Level:: Medical - moderate - high VTE Device Contraindication: Treatment Not Indicated VTE Drug Contraindication: N/A - Med Ordered
--- NOTE | 2021-12-24 14:36 | PC.NURSE ---
Pt refusing all care and assessments, yelling, swearing and spitting. safety and fall precautions in place. camera in room.
[2021-12-25] VITALS (7 sets, daily range): BP systolic 116–160; BP diastolic 74–93; PULSE 78–118; RESP 16–18; TEMP 36.1–36.3; O2SAT 91–96
--- NOTE | 2021-12-25 11:00 | HO.PM.IMPN ---
Subjective Subjective Date of Service: 12/25/21 Interval History: cc: back/hip pain interval history:resolved Cardiovascular Cardiovascular: Reports no additional cardiovascular complaints Respiratory Respiratory: Reports no additional respiratory complaints Physical Exam Vital Signs: Vital Signs: Last Vital Signs Temp 97.2 F 12/25/21 07:19 Pulse 110 H 12/25/21 07:19 Resp 18 12/25/21 07:19 BP 131/83 12/25/21 07:19 Pulse Ox 94 12/25/21 07:19 O2 Del Method 12/25/21 07:19 O2 Flow Rate 5 12/19/21 03:07 BMI result Body Mass Index 27.3 Const: Other: Constitutional : Alert, laying in his bed, not in distress Neck : Normal inspection Cardiovascular :no JVP, no lower extremity edema Respiratory : chest wall moving bilaterally,? no in distress Skin : Dry Objective Data Active Medications Acetaminophen (Acetaminophen 325 Mg Tablet) 650 mg PO Q6H PRN PRN Reason: Pain, Mild (Pain Scale 1-3) Last Admin: 12/21/21 07:35 Dose: 650 mg Documented By: JACOB Amlodipine Besylate (Amlodipine Besylate 10 Mg Tablet) 10 mg PO DAILY [facility]; Protocol Last Admin: 12/25/21 08:01 Dose: Not Given Documented By: NATALI Non-Admin Reason: Patient Refused Atenolol (Atenolol 50 Mg Tablet) 50 mg PO DAILY [facility]; Protocol Last Admin: 12/25/21 08:01 Dose: Not Given Documented By: NATALI Non-Admin Reason: Patient Refused Atorvastatin Calcium (Atorvastatin Calcium 80 Mg Tablet) 80 mg PO BEDTIME [facility] Last Admin: 12/24/21 21:15 Dose: Not Given Documented By: DIXIE Non-Admin Reason: Patient Refused Haloperidol Lactate (Haloperidol Lactate 5 Mg/Ml Vial) 1 mg IM Q8H PRN PRN Reason: anxiety/restlessness Pharmacy Consult (Consult Rx Perform Med Rec) 1 each MISCELLANE ONCE PRN PRN Reason: Consult order Quetiapine Fumarate (Quetiapine Fumarate 25 Mg Tablet) 25 mg PO BID [facility] Last Admin: 12/25/21 08:01 Dose: Not Given Documented By: NATALI Non-Admin Reason: Patient Refused Rivaroxaban (Rivaroxaban 20 Mg Tablet) 20 mg PO DAILY [facility] Last Admin: 12/25/21 08:01 Dose: Not Given Documented By: COTEMA Non-Admin Reason: Patient Refused Senna (Sennosides 8.6 Mg Tablet) 17.2 mg PO BEDTIME PRN PRN Reason: Constipation Last Admin: 12/11/21 19:36 Dose: 17.2 mg Documented By: CASTILLuis Alfredo Sodium Chloride (0.9 % Sodium Chloride Flush 3 Ml Syringe) 3 ml IVFLUSH QSHIFT [facility] Last Admin: 12/25/21 07:04 Dose: Not Given Documented By: COTEMA Non-Admin Reason: No Access Trazodone HCl (Trazodone Hcl 25 Mg Halftab) 12.5 mg PO Q24H [facility] Last Admin: 12/24/21 11:54 Dose: Not Given Documented By: N-SOFFA Non-Admin Reason: Patient Refused Labs CBC & Chem 7: 12/09/21 06:01 12/09/21 06:01 Assessment and Plan (1) Behavioral change: Status: Acute Plan 76M presented with back pain Behavioral problem, change More aggressive, refusing to take medications or follow commands Recurrent redirection and orientation Psychiatry input appreciated, started Seroquel and p.r.n. 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, ongoing work up, ideally would get biopsy of sacral lesion, patient refused patient lacks capacity to make this decision, question the need to do biopsy feels refusing it as it will need heavy sedation pain control- appears fairly comfortable, not asking for Dilaudid anymore PT recommending str confusion Head CT negative for any masses possibly due to above vs progression of alzheimers dementia patient does not have capacity to make most medical decisions or leave AMA, psychiatry appreciated physical deconditioning PT recommended STR placement htn uncontrolled continue amlodipine to 10mg daily continue atenolol higher dose of 50 mg Patient refuses to take them most times but we tried to give them anyway hypokalemia replaced full code dvt prophyalxis Xarelto, refusing meds reason for continued hospitalization: ongoing pain control, pending guardianship, safe dispo planning Quality Stroke Does the patient have a stroke diagnosis?: No VTE Prior VTE?: No VTE Risk Level:: Medical - moderate - high VTE Device Contraindication: Treatment Not Indicated VTE Drug Contraindication: N/A - Med Ordered
--- NOTE | 2021-12-25 16:25 | MHC.CM.PN ---
PER CM DIRECTOR ATTY YUMIKO ANG WILL BE PT'S WALLPAPER CLEANER FOR UPCOMING PETITION FOR GUARDIANSHIP HEARING, DATE CHANGED TO 12/27 FROM PREVIOUS 01/25/22. PT'S NIECE WILL BE PT'S GUARDIAN IF GUARDIANSHIP IS GRANTED, CM WILL CONT TO FOLLOW D/C NEEDS AND PLACEMENT.
[2021-12-26 04:00] VITALS: BP 142/98; PULSE 92; RESP 18; TEMP 36.3; O2SAT 92
--- NOTE | 2021-12-26 04:10 | PC.NURSE ---
Pt refused HS meds and assessment. Was naked till around 2300 when he allowed [employer] OFFBEARER's to bathe and reposition him. Barrier cream applied to buttocks. Elvin placed on patient with a blanket. Pt hollering out intermittently thoughout the night. Each time staff checked on him, he stated there was nothing we could do for him. Denies pain. Will continue to monitor.
[2021-12-26 06:48] LABS: Hematocrit 54.1 % (42.0-52.0); Hemoglobin 17.1 g/dl (14.0-18.0); Mean Corpuscular HGB Conc 31.6 g/dl (31.0-36.0); Mean Corpuscular Volume 88.5 fL (80.0-98.0); PLT CLUMP 1; Red Blood Count 6.11 X10*6/uL (4.60-5.80); Red Cell Distribution Width 14.6 % (11.0-16.0)
[2021-12-26 07:24] LABS: Mean Platelet Volume 13.9 fL (9.4-12.4); Platelet Count 209 X10*3/uL (160-400); White Blood Count 15.9 X10*3/uL (4.8-10.8)
[2021-12-26 07:30] LABS: Anion Gap 22 (12-20); Blood Urea Nitrogen 67 mg/dL (9-16); Calcium 11.5 mg/dL (8.4-10.2); Carbon Dioxide 23 mmol/L (22-29); Chloride 114 mmol/L (96-108); Creatinine Clr Calc Pharmacy 27.9; Estimated Glomerular Filt Rate 28; Glucose Fasting 113 mg/dL (60-99); Potassium 4.2 mmol/L (3.3-5.1); Sodium 155 mmol/L (135-145)
[2021-12-26 07:48] VITALS: BP 123/97; PULSE 109; RESP 16; TEMP 36.4; O2SAT 91
--- NOTE | 2021-12-26 09:05 | P.PNIM_ITS ---
Subjective Subjective Date of Service: 12/26/21 Interval History: cc: hip and back pain interval history: lethargic, not particpatory Review of Systems Review of Systems: Yes Unobtainable due to mental condition Physical Exam Vital Signs: Vital Signs: Last Vital Signs Temp 97.5 F 12/26/21 07:48 Pulse 109 H 12/26/21 07:48 Resp 16 12/26/21 07:48 BP 123/97 H 12/26/21 07:48 Pulse Ox 91 L 12/26/21 07:48 O2 Del Method 12/26/21 07:48 O2 Flow Rate 5 12/19/21 03:07 BMI result Body Mass Index 27.3 General:lethargic, ill appearing Resp: diminished bilateral, no accessory muscles used CVS: S1,S2,RRR GI: soft, non tender, non distended Neuro: not participatory, lethargic Psych: imparied insight Objective Data Active Medications Acetaminophen (Acetaminophen 325 Mg Tablet) 650 mg PO Q6H PRN PRN Reason: Pain, Mild (Pain Scale 1-3) Last Admin: 12/21/21 07:35 Dose: 650 mg Documented By: JACOB Amlodipine Besylate (Amlodipine Besylate 10 Mg Tablet) 10 mg PO DAILY [facility]; Protocol Last Admin: 12/26/21 08:40 Dose: Not Given Documented By: NATALI Non-Admin Reason: Patient Refused Atenolol (Atenolol 50 Mg Tablet) 50 mg PO DAILY [facility]; Protocol Last Admin: 12/26/21 08:40 Dose: Not Given Documented By: NATALI Non-Admin Reason: Patient Refused Atorvastatin Calcium (Atorvastatin Calcium 80 Mg Tablet) 80 mg PO BEDTIME [facility] Last Admin: 12/25/21 21:31 Dose: Not Given Documented By: AMARILIS Non-Admin Reason: Patient Refused Haloperidol Lactate (Haloperidol Lactate 5 Mg/Ml Vial) 1 mg IM Q8H PRN PRN Reason: anxiety/restlessness Pharmacy Consult (Consult Rx Perform Med Rec) 1 each MISCELLANE ONCE PRN PRN Reason: Consult order Quetiapine Fumarate (Quetiapine Fumarate 25 Mg Tablet) 25 mg PO BID [facility] Last Admin: 12/26/21 08:40 Dose: Not Given Documented By: NATALI Non-Admin Reason: Patient Refused Rivaroxaban (Rivaroxaban 20 Mg Tablet) 20 mg PO DAILY [facility] Last Admin: 12/26/21 08:40 Dose: Not Given Documented By: COTEMA Non-Admin Reason: Patient Refused Senna (Sennosides 8.6 Mg Tablet) 17.2 mg PO BEDTIME PRN PRN Reason: Constipation Last Admin: 12/11/21 19:36 Dose: 17.2 mg Documented By: CASTILLuis Alfredo Sodium Chloride (0.9 % Sodium Chloride Flush 3 Ml Syringe) 3 ml IVFLUSH QSHIFT [facility] Last Admin: 12/26/21 08:18 Dose: Not Given Documented By: COTEMA Non-Admin Reason: No Access Trazodone HCl (Trazodone Hcl 25 Mg Halftab) 12.5 mg PO Q24H [facility] Last Admin: 12/25/21 12:04 Dose: Not Given Documented By: COTEMA Non-Admin Reason: Patient Refused Labs CBC & Chem 7: 12/26/21 05:59 12/26/21 05:59 Labs: Laboratory Results - last 24 hr 12/26/21 12/26/21 05:59 05:59 MCV 88.5 MCH 28.0 MCHC 31.6 RDW 14.6 Plt Count 209 MPV 13.9 H Absolute Nucleated RBC 0.000 Nucleated RBC % (auto) 0.0 Anion Gap 22 H Estim Creat Clear Calc 27.9 Estimated GFR 28 Fasting Glucose 113 H D Calcium 11.5 H D Assessment and Plan (1) Behavioral change: Status: Acute Plan 76M presented with back pain, now with poor intake for several days found to have hypernatremia and anshu metabolic encephalopathy due to ANSHU and hypernatremia from poor intake will give isotonic fluids, LR at 100cc/hr for 24 hrs, then follow up repeat labs, likely adjust to hypotonic depending on results hypercalcemia likely dehydration, ? due to malignancy hydrate, monitor Behavioral problem, change More aggressive, refusing to take medications or follow commands Recurrent redirection and orientation Psychiatry input appreciated, started Seroquel and p.r.n. 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, ongoing work up, ideally would get biopsy of sacral lesion, patient refused patient lacks capacity to make this decision, question the need to do biopsy feels refusing it as it will need heavy sedation pain control- appears fairly comfortable, not asking for Dilaudid anymore PT recommending str confusion Head CT negative for any masses possibly due to above vs progression of alzheimers dementia patient does not have capacity to make most medical decisions or leave AMA, psychiatry appreciated physical deconditioning PT recommended STR placement htn uncontrolled continue amlodipine to 10mg daily continue atenolol higher dose of 50 mg Patient refuses to take them most times but we tried to give them anyway hypokalemia replaced full code dvt prophyalxis hep sq reason for continued hospitalization: anshu, hypernatremia pending guardianship, safe dispo planning Quality Stroke Does the patient have a stroke diagnosis?: No VTE Prior VTE?: No VTE Risk Level:: Medical - moderate - high VTE Device Contraindication: Treatment Not Indicated VTE Drug Contraindication: N/A - Med Ordered
[2021-12-26 09:51] LABS: Alanine Aminotransferase 30 U/L (0-40); Albumin Level 3.7 g/dL (3.5-5.0); Alkaline Phosphatase 165 U/L (39-117); Aspartate Amino Transferase 22 U/L (5-37); Bilirubin Direct 0.5 mg/dL (0.0-0.5); Bilirubin Total 1.2 mg/dL (0.0-1.0); Total Protein 6.6 g/dL (6.5-8.0)
--- NOTE | 2021-12-26 10:09 | PC.NURSE ---
MD order for LR placed. Patient has no IV access. This RN attempted to get IV access, patient refused. Patient was educated on why IV access and IV fluids was needed. Patient still refused IV access. Patient is also refusing all PO intake including meals, water, and medications. DR. Amador was made aware. Will continue to encourage patient to take PO intake.
[2021-12-26 11:23] VITALS: BP 137/82; PULSE 112; RESP 16; TEMP 36.3; O2SAT 92
[2021-12-26 19:33] VITALS: BP 152/81; PULSE 117; RESP 18; TEMP 36.3; O2SAT 95
[2021-12-26 23:17] VITALS: BP 113/98; PULSE 119; RESP 19; TEMP 36.2; O2SAT 93
[2021-12-27 04:00] VITALS: PULSE 115; RESP 19; TEMP 36; O2SAT 93
[2021-12-27 06:25] LABS: Hematocrit 57.3 % (42.0-52.0); Hemoglobin 18.2 g/dl (14.0-18.0); Mean Corpuscular HGB Conc 31.8 g/dl (31.0-36.0); Mean Corpuscular Hemoglobin 28.6 pg (27.0-33.0); Mean Platelet Volume 13.7 fL (9.4-12.4); Platelet Count 196 X10*3/uL (160-400); Red Blood Count 6.37 X10*6/uL (4.60-5.80); Red Cell Distribution Width 15.9 % (11.0-16.0); White Blood Count 16.7 X10*3/uL (4.8-10.8)
[2021-12-27 07:34] VITALS: BP 119/90; PULSE 115; RESP 19; TEMP 36.2; O2SAT 93
[2021-12-27 09:43] LABS: Alanine Aminotransferase 29 U/L (0-40); Albumin Level 3.9 g/dL (3.5-5.0); Alkaline Phosphatase 178 U/L (39-117); Anion Gap 24 (12-20); Aspartate Amino Transferase 20 U/L (5-37); Bilirubin Direct 0.5 mg/dL (0.0-0.5); Bilirubin Total 1.1 mg/dL (0.0-1.0); Blood Urea Nitrogen 95 mg/dL (9-16); Calcium 11.4 mg/dL (8.4-10.2); Carbon Dioxide 27 mmol/L (22-29); Chloride 115 mmol/L (96-108); Creatinine Clr Calc Pharmacy 19.5; Estimated Glomerular Filt Rate 18; Glucose Fasting 118 mg/dL (60-99); Potassium 4.7 mmol/L (3.3-5.1); Sodium 161 mmol/L (135-145)
[2021-12-27 11:23] VITALS: BP 121/66; PULSE 115; RESP 18; TEMP 36.3; O2SAT 92
--- NOTE | 2021-12-27 12:04 | MHC.CM.PN ---
PER CM DIRECTOR [facility] ATTY'S REPORT WE WILL HAVE GUARDIANSIP PAPERWORK BY EOD, ANTIC PLAN WILL BE TO TXFR TO SNF W/NEW DNR/DNI AND POSSIBLE HOSPICE, CM WILL UPDATE REFERRAL.
--- NOTE | 2021-12-27 13:03 | HO.PM.IMPN ---
Subjective Subjective Date of Service: 12/27/21 Interval History: Refusing medications , IV fluids gets aggravated quickly Aggressive behavior to were the medical staff Review of Systems Review of Systems: Yes Unobtainable due to mental status Physical Exam Vital Signs: Vital Signs: Last Vital Signs Temp 97.3 F 12/27/21 11:23 Pulse 115 H 12/27/21 11:23 Resp 18 12/27/21 11:23 BP 121/66 12/27/21 11:23 Pulse Ox 92 12/27/21 11:23 O2 Del Method 12/27/21 11:23 O2 Flow Rate 5 12/19/21 03:07 BMI result Body Mass Index 27.3 Const: Other: Constitutional : altered mentation, response to verbal stimuli, laying in his bed, not in distress Neck : Normal inspection Cardiovascular :no JVP, no lower extremity edema Respiratory : chest wall moving bilaterally,? no in distress Skin : Dry Neurological: alert to self only but lethargic, respond to verbal stimuli, does not follow commands Objective Data Active Medications Acetaminophen (Acetaminophen 325 Mg Tablet) 650 mg PO Q6H PRN PRN Reason: Pain, Mild (Pain Scale 1-3) Last Admin: 12/21/21 07:35 Dose: 650 mg Documented By: JACOB Amlodipine Besylate (Amlodipine Besylate 10 Mg Tablet) 10 mg PO DAILY [facility]; Protocol Last Admin: 12/27/21 08:59 Dose: Not Given Documented By: JOBY Non-Admin Reason: Patient Refused Atenolol (Atenolol 50 Mg Tablet) 50 mg PO DAILY [facility]; Protocol Last Admin: 12/27/21 08:59 Dose: Not Given Documented By: JOBY Non-Admin Reason: Patient Refused Atorvastatin Calcium (Atorvastatin Calcium 80 Mg Tablet) 80 mg PO BEDTIME [facility] Last Admin: 12/26/21 21:12 Dose: Not Given Documented By: NANCY Non-Admin Reason: Patient Refused Haloperidol Lactate (Haloperidol Lactate 5 Mg/Ml Vial) 1 mg IM Q8H PRN PRN Reason: anxiety/restlessness Heparin Sodium (Porcine) (Heparin Sodium,Porcine 5,000 Unit/Ml Vial) 5,000 unit SUBCUT Q12H [facility] Last Admin: 12/27/21 08:59 Dose: Not Given Documented By: JOBY Non-Admin Reason: Patient Refused Pharmacy Consult (Consult Rx Perform Med Rec) 1 each MISCELLANE ONCE PRN PRN Reason: Consult order Quetiapine Fumarate (Quetiapine Fumarate 25 Mg Tablet) 25 mg PO BID [facility] Last Admin: 12/27/21 08:59 Dose: Not Given Documented By: JOBY Non-Admin Reason: Patient Refused Senna (Sennosides 8.6 Mg Tablet) 17.2 mg PO BEDTIME PRN PRN Reason: Constipation Last Admin: 12/11/21 19:36 Dose: 17.2 mg Documented By: CASTYUNIOR Sodium Chloride (0.9 % Sodium Chloride Flush 3 Ml Syringe) 3 ml IVFLUSH QSHIFT [facility] Last Admin: 12/27/21 08:59 Dose: Not Given Documented By: JOBY Non-Admin Reason: No Access Trazodone HCl (Trazodone Hcl 25 Mg Halftab) 12.5 mg PO Q24H [facility] Last Admin: 12/26/21 12:05 Dose: Not Given Documented By: NATALI Non-Admin Reason: Patient Refused Labs CBC & Chem 7: 12/27/21 06:09 12/27/21 08:44 Labs: Laboratory Results - last 24 hr 12/27/21 12/27/21 06:09 08:44 MCV 90.0 MCH 28.6 MCHC 31.8 RDW 15.9 Plt Count 196 MPV 13.7 H Absolute Nucleated RBC 0.000 Nucleated RBC % (auto) 0.0 Anion Gap 24 H Estim Creat Clear Calc 19.5 Estimated GFR 18 Fasting Glucose 118 H Calcium 11.4 H Total Bilirubin 1.1 H Direct Bilirubin 0.5 AST 20 ALT 29 Alkaline Phosphatase 178 H Total Protein 7.0 Albumin 3.9 Assessment and Plan (1) Intractable back pain: Status: Acute (2) Hypernatremia: Status: Acute (3) Hypercalcemia: Status: Acute (4) Acute kidney injury: Status: Acute Plan 76M presented with back pain, now with poor intake for several days found to have hypernatremia and anshu metabolic encephalopathy due to ANSHU and hypernatremia, hypercalcemia from poor intake patient ripped of his IV line and refusing to receive any IV fluids Behavioral problem More aggressive, refusing to take medications or follow commands Recurrent redirection and orientation Psychiatry input appreciated Intractable back pain due to sacral lesions 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 Start morphine sublingual as needed for pain Start lorazepam as needed for anxiety Will continue Haldol for agitation management Discontinue vitals, blood work reason for continued hospitalizationCMO pending discharge plan Quality Stroke Does the patient have a stroke diagnosis?: No VTE Prior VTE?: No VTE Risk Level:: Medical - moderate - high VTE Device Contraindication: Treatment Not Indicated VTE Drug Contraindication: N/A - Med Ordered
--- NOTE | 2021-12-27 15:26 | MHC.CLN ---
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 POOR INTAKE X SEVERAL DAYS. HX OF REFUSING MEALS, WATER, MEDS. NO IV FLUIDS. ENSURE SUPPLEMENT DISCONTINUED. GOAL: FACE BURLER. PLAN: RD AVAILABLE NEEDED.
[2021-12-27 15:27] VITALS: BP 106/89; PULSE 118; RESP 17; TEMP 36.3; O2SAT 92
--- NOTE | 2021-12-27 15:36 | MHC.CM.PN ---
DERRELL HERRON ([phone]) AWARE OF PLAN FOR SNF SEARCH AND [facility] H[facility] BED OFFER IF RECEIVED. WHEN ASKED, PATIENT DOES NOT WISH TO SPEAK TO ANYONE AT THIS TIME. CASE MANAGEMENT CAN RE-ATTEMPT ON Saturday12/28/21
[2021-12-27 19:31] VITALS: BP 137/98; PULSE 126; RESP 18; TEMP 36.3; O2SAT 92
[2021-12-27 23:41] VITALS: BP 124/70; PULSE 123; RESP 18; TEMP 36.2; O2SAT 90
[2021-12-28 03:49] VITALS: BP 125/82; PULSE 118; RESP 18; TEMP 36.6; O2SAT 90
--- NOTE | 2021-12-28 12:10 | HO.PM.IMPN ---
Subjective Subjective Date of Service: 12/28/21 Interval History: Refusing medications , IV fluids gets aggravated quickly Aggressive behavior to were the medical staff Review of Systems Review of Systems: Yes Unobtainable due to mental status Physical Exam Vital Signs: Vital Signs: Last Vital Signs Temp 97.9 F 12/28/21 03:49 Pulse 118 H 12/28/21 03:49 Resp 18 12/28/21 03:49 BP 125/82 12/28/21 03:49 Pulse Ox 90 L 12/28/21 03:49 O2 Del Method 12/28/21 03:49 O2 Flow Rate 5 12/19/21 03:07 BMI result Body Mass Index 27.3 Const: Other: Constitutional : altered mentation, response to verbal stimuli, laying in his bed, not in distress Neck : Normal inspection Cardiovascular :no JVP, no lower extremity edema Respiratory : chest wall moving bilaterally,? no in distress Skin : Dry Neurological: alert to self only but lethargic, respond to verbal stimuli, does not follow commands Objective Data Active Medications Acetaminophen (Acetaminophen 325 Mg Tablet) 650 mg PO Q6H PRN PRN Reason: Pain, Mild (Pain Scale 1-3) Last Admin: 12/21/21 07:35 Dose: 650 mg Documented By: JACOB Haloperidol Lactate (Haloperidol Lactate 5 Mg/Ml Vial) 1 mg IM Q8H PRN PRN Reason: anxiety/restlessness Lorazepam (Lorazepam 1 Mg Tablet) 1 mg PO Q6H PRN PRN Reason: anxiety/restlessness Morphine Sulfate (Morphine Sulfate Oral Anali 10 Mg/5 Ml Solution) 5 mg SUBLINGUAL Q4H PRN PRN Reason: Pain, Severe (Pain Scale 7-10) Pharmacy Consult (Consult Rx Perform Med Rec) 1 each MISCELLANE ONCE PRN PRN Reason: Consult order Quetiapine Fumarate (Quetiapine Fumarate 25 Mg Tablet) 25 mg PO BID [facility] Last Admin: 12/28/21 10:05 Dose: Not Given Documented By: SEBASTIAN Non-Admin Reason: Patient Refused Senna (Sennosides 8.6 Mg Tablet) 17.2 mg PO BEDTIME PRN PRN Reason: Constipation Last Admin: 12/11/21 19:36 Dose: 17.2 mg Documented By: CASTILLuis Alfredo Sodium Chloride (0.9 % Sodium Chloride Flush 3 Ml Syringe) 3 ml IVFLUSH QSHIFT [facility] Last Admin: 12/28/21 07:44 Dose: Not Given Documented By: SEBASTIAN Non-Admin Reason: No Access Trazodone HCl (Trazodone Hcl 25 Mg Halftab) 12.5 mg PO Q24H [facility] Last Admin: 12/27/21 14:12 Dose: Not Given Documented By: JOBY Non-Admin Reason: Patient Refused Labs CBC & Chem 7: 12/27/21 06:09 12/27/21 08:44 Assessment and Plan (1) Cavitary lesion of lung: Status: Acute (2) Intractable back pain: Status: Acute Plan 76M presented with back pain, now with poor intake for several days found to have hypernatremia and monster metabolic encephalopathy Behavioral problem Intractable back pain due to sacral lesions 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 Start morphine sublingual as needed for pain Start lorazepam as needed for anxiety Will continue Haldol for agitation management Discontinue vitals, blood work reason for continued hospitalizationCMO pending discharge plan Quality Stroke Does the patient have a stroke diagnosis?: No VTE Prior VTE?: No VTE Risk Level:: Medical - moderate - high VTE Device Contraindication: Treatment Not Indicated VTE Drug Contraindication: N/A - Med Ordered
--- NOTE | 2021-12-28 12:27 | MHC.CM.PN ---
COMPLETED MOLST (12/27/21) TO BE UPLOADED INTO [employer] AND PLACED IN CHART
--- NOTE | 2021-12-28 15:19 | MHC.CM.PN ---
EMERGENCY GUARDIANSHIP PAPERS PLACED IN MEDICAL CHART AND A COPY UPLOADED INTO [employer].
--- NOTE | 2021-12-28 17:19 | PC.NURSE ---
spoke to Desiree, pts niece. She stated pts daughter Sherri Ely lives in [place] and would be attempting to contacting the pt.
[2021-12-29] VITALS: RESP 20
[2021-12-29 04:00] VITALS: RESP 18
[2021-12-29 07:36] VITALS: BP 123/83; PULSE 116; RESP 16; TEMP 35.6; O2SAT 90
[2021-12-29 11:34] VITALS: PULSE 100; RESP 16; TEMP 36.3; O2SAT 98
--- NOTE | 2021-12-29 12:09 | P.PNIM_ITS ---
Subjective Subjective Date of Service: 12/29/21 Interval History: Refusing medications , IV fluids gets aggravated quickly Aggressive behavior to were the medical staff Review of Systems No fever, chills pain his lower back No chest pain, palpitation No shortness of breath or coughing No abdominal pain, nausea or vomiting No urinary symptoms No any rash or wounds Physical Exam Vital Signs: Vital Signs: Last Vital Signs Temp 97.3 F 12/29/21 11:34 Pulse 100 12/29/21 11:34 Resp 16 12/29/21 11:34 BP 123/83 12/29/21 07:36 Pulse Ox 98 12/29/21 11:34 O2 Del Method 12/29/21 11:34 O2 Flow Rate 5 12/19/21 03:07 BMI result Body Mass Index 27.3 Const: Other: Constitutional : altered mentation, response to verbal stimuli, laying in his bed, not in distress Neck : Normal inspection Cardiovascular :no JVP, no lower extremity edema Respiratory : chest wall moving bilaterally,? no in distress Skin : Dry Neurological: alert to self only but lethargic, respond to verbal stimuli, does not follow commands Objective Data Active Medications Acetaminophen (Acetaminophen 325 Mg Tablet) 650 mg PO Q6H PRN PRN Reason: Pain, Mild (Pain Scale 1-3) Last Admin: 12/21/21 07:35 Dose: 650 mg Documented By: JACOB Haloperidol Lactate (Haloperidol Lactate 5 Mg/Ml Vial) 1 mg IM Q8H PRN PRN Reason: anxiety/restlessness Lorazepam (Lorazepam 1 Mg Tablet) 1 mg PO Q6H PRN PRN Reason: anxiety/restlessness Morphine Sulfate (Morphine Sulfate Oral Anali 10 Mg/5 Ml Solution) 5 mg SUBLINGUAL Q4H PRN PRN Reason: Pain, Severe (Pain Scale 7-10) Pharmacy Consult (Consult Rx Perform Med Rec) 1 each MISCELLANE ONCE PRN PRN Reason: Consult order Quetiapine Fumarate (Quetiapine Fumarate 25 Mg Tablet) 25 mg PO BID [facility] Last Admin: 12/29/21 08:59 Dose: Not Given Documented By: SEBASTIAN Non-Admin Reason: Patient Refused Senna (Sennosides 8.6 Mg Tablet) 17.2 mg PO BEDTIME PRN PRN Reason: Constipation Last Admin: 12/11/21 19:36 Dose: 17.2 mg Documented By: HO.CASTILM Sodium Chloride (0.9 % Sodium Chloride Flush 3 Ml Syringe) 3 ml IVFLUSH QSHIFT [facility] Last Admin: 12/29/21 07:33 Dose: Not Given Documented By: SEBASTIAN Non-Admin Reason: No Access Trazodone HCl (Trazodone Hcl 25 Mg Halftab) 12.5 mg PO Q24H [facility] Last Admin: 12/28/21 13:34 Dose: Not Given Documented By: SEBASTIAN Non-Admin Reason: Patient Refused Labs CBC & Chem 7: 12/27/21 06:09 12/27/21 08:44 Assessment and Plan (1) Behavioral change: Status: Acute (2) Acute kidney injury: Status: Acute (3) Cavitary lesion of lung: Status: Acute Plan 76M presented with back pain, now with poor intake for several days found to have hypernatremia and monster metabolic encephalopathy Behavioral problem Intractable back pain due to sacral lesions 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 Use morphine sublingual as needed for pain use lorazepam as needed for anxiety as needed Haldol for agitation management Discontinue vitals, blood work reason for continued hospitalizationCMO pending discharge plan Quality Stroke Does the patient have a stroke diagnosis?: No VTE Prior VTE?: No VTE Risk Level:: Medical - moderate - high VTE Device Contraindication: Treatment Not Indicated VTE Drug Contraindication: N/A - Med Ordered
--- NOTE | 2021-12-29 15:06 | MHC.CM.PN ---
[facility] REVIEWING FOR POSSIBLE BED OFFER. [facility] AND [facility] [employer] CASE MANAGEMENT AWAITING RESPONSE
[2021-12-29 19:36] VITALS: BP 149/87; PULSE 118; RESP 17; TEMP 36.6; O2SAT 94
[2021-12-29 23:57] VITALS: PULSE 105; RESP 20; O2SAT 94
[2021-12-30 03:48] VITALS: RESP 18
[2021-12-30 08:00] VITALS: BP 99/75; PULSE 110; RESP 18; TEMP 36.1
--- NOTE | 2021-12-30 12:02 | HO.PM.IMPN ---
Subjective Subjective Date of Service: 12/30/21 Interval History: More withdrawn and lethargic gets aggravated quickly Aggressive behavior to the medical staff Review of Systems Review of Systems: Yes Unobtainable due to mental status Physical Exam Vital Signs: Vital Signs: Last Vital Signs Temp 97.0 F 12/30/21 08:00 Pulse 110 H 12/30/21 08:00 Resp 18 12/30/21 08:00 BP 99/75 12/30/21 08:00 Pulse Ox 94 12/29/21 23:57 O2 Del Method 12/29/21 23:57 O2 Flow Rate 5 12/19/21 03:07 BMI result Body Mass Index 27.3 Const: Other: altered mentation, response to verbal stimuli, laying in his bed, not in distress Cardiovascular :no JVP, no lower extremity edema Respiratory : chest wall moving bilaterally,? no in distress Skin : Dry Neurological: alert, confused, responds to verbal stimuli, does not follow commands Objective Data Active Medications Acetaminophen (Acetaminophen 325 Mg Tablet) 650 mg PO Q6H PRN PRN Reason: Pain, Mild (Pain Scale 1-3) Last Admin: 12/21/21 07:35 Dose: 650 mg Documented By: JACOB Haloperidol Lactate (Haloperidol Lactate 5 Mg/Ml Vial) 1 mg IM Q8H PRN PRN Reason: anxiety/restlessness Lorazepam (Lorazepam 1 Mg Tablet) 1 mg PO Q6H PRN PRN Reason: anxiety/restlessness Morphine Sulfate (Morphine Sulfate Oral Anali 10 Mg/5 Ml Solution) 5 mg SUBLINGUAL Q4H PRN PRN Reason: Pain, Severe (Pain Scale 7-10) Pharmacy Consult (Consult Rx Perform Med Rec) 1 each MISCELLANE ONCE PRN PRN Reason: Consult order Quetiapine Fumarate (Quetiapine Fumarate 25 Mg Tablet) 25 mg PO BID [facility] Last Admin: 12/30/21 07:13 Dose: Not Given Documented By: COTEMA Non-Admin Reason: Patient Refused Senna (Sennosides 8.6 Mg Tablet) 17.2 mg PO BEDTIME PRN PRN Reason: Constipation Last Admin: 12/11/21 19:36 Dose: 17.2 mg Documented By: CASTILM Sodium Chloride (0.9 % Sodium Chloride Flush 3 Ml Syringe) 3 ml IVFLUSH QSHIFT [facility] Last Admin: 12/30/21 07:13 Dose: Not Given Documented By: NATALI Non-Admin Reason: No Access Trazodone HCl (Trazodone Hcl 25 Mg Halftab) 12.5 mg PO Q24H HERNANDEZ Last Admin: 12/29/21 13:59 Dose: Not Given Documented By: SEBASTIAN Non-Admin Reason: Patient Refused Labs CBC & Chem 7: 12/27/21 06:09 12/27/21 08:44 Assessment and Plan (1) Behavioral change: Status: Acute (2) Cavitary lesion of lung: Status: Acute Plan 76M presented with back pain, now with poor intake for several days found to have hypernatremia and monster metabolic encephalopathy Behavioral problem Intractable back pain due to sacral lesions 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 Use morphine sublingual as needed for pain use lorazepam as needed for anxiety as needed Haldol for agitation management Discontinue vitals, blood work reason for continued hospitalizationCMO pending discharge plan Quality Stroke Does the patient have a stroke diagnosis?: No VTE Prior VTE?: No VTE Risk Level:: Medical - moderate - high VTE Device Contraindication: Treatment Not Indicated VTE Drug Contraindication: N/A - Med Ordered
[2021-12-30] MEDS: Morphine Sulfate Oral Sol 10 MG/5 ML SOLUTION 5 MG SUBLINGUAL (14:23)
[2021-12-30 15:12] VITALS: RESP 18; TEMP 36.1
[2021-12-31] MEDS: Morphine Sulfate Oral Sol 10 MG/5 ML SOLUTION 5 MG SUBLINGUAL (04:41)
--- NOTE | 2021-12-31 06:50 | PM.EVENT ---
Event Note Date of Service: 12/31/21 Event Note: pt at 5;53 am no heart sounds, no pulse, no breath sounds, pupils dilated and non-reactive
--- NOTE | 2021-12-31 09:28 | PM.DS ---
DS: Providers Provider Date of Service: 12/31/21 Date of admission: 12/07/21 21:54 Primary care physician: Hossein Parra Consults: 12/07/21 21:59 Consult to Hematology / Oncology Routine Consulting Provider: Marisa Estevez Reason for consultation: sacral lesion Consult to Psychiatry Routine Consulting Provider: Psych Covering Reason for consultation: capacity assessment 12/15/21 10:21 Consult to Psychiatry Routine Consulting Provider: Psych Covering Reason for consultation: aggressive, refuses meds, for eval and rec DS: Diagnosis Discharge Diagnosis (1) Behavioral change: Status: Acute (2) Cavitary lesion of lung: Status: Acute (3) Acute kidney injury: Status: Acute (4) Hypercalcemia: Status: Acute (5) Hypernatremia: Status: Acute (6) Intractable back pain: Status: Acute (7) Acute confusion: Status: Acute DS: Summary Hospital Course Hospital Course: Admission note HPI 76-year-old male with a past medical history of hypertension, hyperlipidemia, CKD, history of CVA, monoclonal gammopathy presented to the hospital with a chief complaint of back pain.? Patient was recently admitted to the hospital for similar complaints, noted to have lung cavitary lesions, sacral lesions-planned for biopsy but patient left AMA.? Patient reports that since he left the hospital he has been having back pain, today he has severe pain hence decided to come to the ER for further evaluation.? Denies any chest pain palpitations lightheadedness or dizziness.? Denies any fever chills cough.? Denies any GI symptoms.? Denies any numbness tingling or focal weakness.? Mentions that he has right leg numbness for long time, unchanged.? Denies any falls or trauma.? Denies any bowel or bladder dysfunction.? Review of all other systems is negative except mentioned above I also spoke to the patient's healthcare proxy who mentions that patient has been changing the story of his complaints.? Also concern for patient being confused lately.? Hospital course The patient prolonged hospital stay. For fulltails please return to EMR In summary< the patient was admitted for evaluation of intractable back pain with known lung cavitary lesion and sacral lesions> He was plan to do biopsy after being evaluated by Oncology team> He left the hospital in the previous admission against medical advice> During this admission he was evaluated by psychiatry team who felt the patient has no capacity to make decisions and guardianship was C and approved for his niece> He was started on pain medications But started to became more aggressive toward the nursing staff refusing medications and ripping of his IVs> His blood work showed to duration his kidney function< elevated sodium and calcium levels> Discussed with his guardian with decided to go with comfort measures given 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 Time Spent with Patient Time attestation: Total time spent providing and/or coordinating discharge services: Discharge coordination time: Greater than 30 minutes Quality: Safe Use of Opioids Does Pt have an Active Cancer Diagnosis on the Problem List?: No Quality: Stroke Does the patient have a stroke diagnosis?: No Physical Exam Vital Signs: Vital Signs: Last Vital Signs Temp 97.0 F 12/30/21 15:12 Pulse 110 H 12/30/21 08:00 Resp 18 12/30/21 15:12 BP 99/75 12/30/21 08:00 Pulse Ox 94 12/29/21 23:57 O2 Del Method 12/29/21 23:57 O2 Flow Rate 5 12/19/21 03:07 BMI result Body Mass Index 27.3 Const: Other: Discharge Plan Discharge Date/Time: 12/31/21 05:53 Patient Disposition: Discharge Diagnosis: back pain. lung mets, secral mets Referrals: Physician,Unknown J [Physician] - 1 Week Discharge Medications: No Action atorvastatin 80 mg Tablet 80 mg PO BEDTIME atenolol 25 mg Tablet 25 mg PO DAILY acetaminophen 325 mg Tablet 650 mg PO DAILY PRN (Reason: Pain) Discharge Date/Time: 12/31/21 07:16
== END 2021-12-31 07:16 | disposition expired | DRG 947 ==
LOC: HO.ED 18:32 → HO.EDOVER 22:04 → HO.S3 12-08 15:16
PROVIDERS: Internal Medicine; Admitting Provider Hospitalist; Emergency Provider Emergency Medicine; PCP Internal Medicine; Visit Provider Student in an Organized Health Care Education/Training Program
DX: G89.3 Neoplasm related pain (acute) (chronic) (principal); G93.41 Metabolic encephalopathy; C34.31 Malignant neoplasm of lower lobe, right bronchus or lung; C79.51 Secondary malignant neoplasm of bone; F02.81 Dementia in other diseases classified elsewhere, unspecified severity, with behavioral disturbance; N17.9 Acute kidney failure, unspecified; E87.0 Hyperosmolality and hypernatremia; Z51.5 Encounter for palliative care; Z20.822 Contact with and (suspected) exposure to COVID-19; I12.9 Hypertensive chronic kidney disease with stage 1 through stage 4 chronic kidney disease, or unspecified chronic kidney disease; N18.9 Chronic kidney disease, unspecified; E87.6 Hypokalemia; E83.52 Hypercalcemia; D47.2 Monoclonal gammopathy; G30.9 Alzheimer's disease, unspecified; E78.5 Hyperlipidemia, unspecified; Z86.73 Personal history of transient ischemic attack (TIA), and cerebral infarction without residual deficits; Z75.1 Person awaiting admission to adequate facility elsewhere; Z79.899 Other long term (current) drug therapy
CPT/HCPCS: 36415; 70450; 71250; 73700; 74176; 80048; 80076; 81001; 83735; 85025; 85027; 85610; 87635; 96361; 96374; 96375; 97162; 97166; 97530; 99285; J1170; J1650; J2270; J2405